=== PATIENT | male | born 1985 | race Caucasian/White ===

== ENCOUNTER 2021-05-04 00:11 | Inpatient (IN) | payer OTHER, SELFPAY ==
[2021-05-04] VITALS (11 sets, daily range): BP systolic 107–168; BP diastolic 73–105; PULSE 91–131; RESP 16–22; TEMP 36.6–37.1; O2SAT 90–97; BMI 25.7; BMI 24.3
--- NOTE | ~2021-05-04 | CT_ITS ---
EXAMINATION: CT ABDOMEN AND PELVIS WITH CONTRAST CLINICAL INFORMATION: Epigastric pain. History of pancreatitis. COMPARISON: None TECHNIQUE: Multidetector volumetric images were obtained from the superior aspect of the liver through the pubic symphysis following administration 85 mL of Omnipaque 350 intravenous contrast. Sagittal and coronal reformatted images were obtained on the technologist's workstation. Oral contrast: No This CT examination was performed using dose optimization techniques as appropriate, variously including the following: *Automated exposure control *Adjustment of mA and/or kV according to patient size (this includes techniques or standardized protocols for targeted exams where dose is matched to indication/reason for exam; i.e. extremities or head) *Use of iterative reconstruction technique DLP: 629 mGy-cm FINDINGS: LUNG BASES: The visualized lung bases are unremarkable. LIVER, GALLBLADDER, AND BILIARY TREE: The liver is enlarged measuring 23 cm in CC dimension. It is diffusely hypoattenuating. Normal shape of the liver. Patent portal vein.. No focal hepatic lesion or biliary ductal dilatation is present. Likely sludge layering in the gallbladder lumen. No wall thickening or pericholecystic fluid. PANCREAS: The pancreatic parenchyma is homogenous with no ductal dilatation. There is inflammatory stranding surrounding the pancreatic parenchyma, greatest at the pancreatic head and neck. SPLEEN: Unremarkable. ADRENAL GLANDS: Unremarkable. KIDNEYS AND URETERS: The kidneys are normal in size, shape, and attenuation. No hydronephrosis, hydroureter, or calculi seen. No perinephric stranding. BLADDER: Unremarkable. GASTROINTESTINAL TRACT: The stomach is unremarkable. Normal caliber small bowel. No obstruction. No colonic wall thickening or inflammatory change. Normal appendix. Minimal colonic diverticulosis. No diverticulitis. No free air. ABDOMINAL WALL: No significant hernia is appreciated. LYMPH NODES: Normal. VASCULAR: Normal caliber aorta with mild atherosclerotic calcification. PELVIC VISCERA: The prostate and seminal vesicles are unremarkable. OSSEOUS STRUCTURES: No acute or suspicious osseous abnormality. CT/CT abdomen pelvis w con IMPRESSION: Prominent inflammatory stranding surrounding the pancreatic parenchyma, likely associated with pancreatitis. No fluid collection. Hepatomegaly with hepatic steatosis. Likely gallbladder sludge.
[2021-05-04 01:03] LABS: MANUAL DIFF FLAG NO
--- NOTE | 2021-05-04 01:08 | ED.ABDPAIN ---
HPI - Abdominal Pain General Chief Complaint: Abdominal Pain Stated Complaint: abd pain Time Seen by Provider: 05/04/21 00:56 Source: patient Mode of arrival: ambulatory Limitations: no limitations History of Present Illness HPI narrative: Complaining of epigastric pain. Patient states that 2-3 months ago he had an episode of pancreatitis. Patient stop drinking but recently a a month ago he started drinking again. Patient complaining of very sharp pain in the epigastric area, intermittent. Patient admits to vomiting, no diarrhea. Patient denies fever or chills. Patient states that the pain he is having now, is very similar to the time that he was diagnosed with pancreatitis. Related Data Allergies Allergy/AdvReac Type Severity Reaction Status Date / Time codeine [CODEINE] Allergy Mild REDNESS Verified 05/04/21 00:32 tramadol [TRAMADOL] AdvReac Unknown ON EFFEXOR Verified 05/04/21 00:32 From [facility] Allergy Intermediate SWELLING Uncoded 06/06/20 18:01 Review of Systems Review of Systems Constitutional : No Weight loss, No Fever, No Chills, No Night Sweats, No Fatigue, No Malaise ENT/Mouth : No Hearing loss, No Ear Pain, No Nasal Congestion, No Sinus Pain, No Hoarseness, No sore throat, No Rhinorrhea, No Swallowing Difficulty Eyes: No Eye Pain, No Swelling, No Redness, No Foreign Body, No Discharge, No Vision Changes Cardiovascular : No Chest Pain, No SOB, No Dyspnea on Exertion, No Orthopnea, No Edema, No Palpitations Respiratory : No Cough, No Sputum, No Wheezing, No Smoke Exposure, No Dyspnea Gastrointestinal : Complaining of nausea and vomiting,No Diarrhea, No Constipation, complaining of epigastric pain, No Hematochezia, No Melena Genitourinary : no irregular bleeding, No Dysuria, No Urinary Frequency, No Hematuria, No Urinary Incontinence, No Urgency, No Flank Pain, No Urinary Flow Changes, No Hesitancy Musculoskeletal : No joint pain, No Myalgias, No Joint Swelling Skin : No Skin Lesions, No rash Neuro : No Weakness, No Numbness, No Paresthesias, No Loss of Consciousness, No Dizziness, No Headache Psych : No Anxiety/Panic, No Depression, No SI/HI/AH/VH, No Social Issues, Heme/Lymph: No Bruising, No Bleeding,No Lymphadenopathy Endocrine : No Polyuria, No Polydipsia, No Temperature Intolerance Physical Exam Vital Signs: Vital Signs: Last Vital Signs Temp 98.6 F 05/04/21 00:33 Pulse 106 H 05/04/21 01:26 Resp 18 05/04/21 01:26 BP 150/100 H 05/04/21 01:26 Pulse Ox 94 05/04/21 01:26 Body Mass Index 25.7 Const: Other: Appearance: Alert. Oriented X3. No acute distress. Eyes: Pupils equal, round and reactive to light. ENT: Pharynx normal. Neck: Normal inspection. Neck supple. No lymph nodes noted. No crepitus CVS: Tachycardic, Pulses normal. Normal S1 and S2 Respiratory: No respiratory distress. Breath sounds normal. No Wheezing. No rales Abdomen: Soft , moderate pain to palpation over the epigastric and right upper quadrant No rigidity. No distention. No guarding, no rebound Skin: Skin warm and dry. Normal skin color. Normal skin turgor. Extremities: No lower extremity edema. No lower extremity edema. No Lacerations. No Rash Neuro: Oriented X 3. No motor deficit. No sensory deficit. Moving all extermities. No slurred speech. Course Course Course Narrative: I discussed the CT findings with our hospitalist, patient being admitted. At this time, patient's LFTs are elevated, patient does have sludge, but no gallbladder wall thickening or pericholecystic fluid. Acute cholecystitis is not suspected. Patient agrees to admission. MDM - Abdominal Pain Lab Data Result diagrams: 05/04/21 00:55 05/04/21 00:55 Labs: Lab Results 05/04/21 05/04/21 05/04/21 Range/Units 00:55 00:55 00:55 WBC 6.0 (4.8-10.8) X10*3/uL RBC 4.34 L (4.60-5.80) X10*6/uL Hgb 14.3 (14.0-18.0) g/dl Hct 40.1 L (42-52) % MCV 92.4 (80-98) fL MCH 32.9 (27.0-33.0) pg MCHC 35.7 (31.0-36.0) g/dl RDW 13.1 (11.0-16.0) % Plt Count 143 L (160-400) X10*3/uL MPV 9.5 (9.4-12.4) fL Immature Gran % (Auto) 0.3 (0.0-0.4) % Neut % (Auto) 71.8 (45-73) % Lymph % (Auto) 19.2 L (20-40) % [place] % (Auto) 7.8 (2-11) % Eos % (Auto) 0.2 (0-4) % Baso % (Auto) 0.7 (0-2) % Lymph # (Auto) 1.2 (1.2-4.9) X10*3/uL [place] # (Auto) 0.5 (0.1-1.2) X10*3/uL Eos # (Auto) 0.0 (0.0-0.4) X10*3/uL Baso # (Auto) 0.0 (0.0-0.2) X10*3/uL Abs Immat Gran (auto) 0.02 (0.00-0.03) X10*3/uL Absolute Neuts (auto) 4.3 (2.0-8.3) X10*3/uL Absolute Nucleated RBC 0.000 (0.0-0.012) X10*3/uL Nucleated RBC % (auto) 0.0 (0.0-0.2) /100WBC Sodium 132 L (135-145) mmol/L Potassium 3.0 L (3.3-5.1) mmol/L Chloride 88 L (96-108) mmol/L Carbon Dioxide 29 (22-29) mmol/L Anion Gap 18 (12-20) BUN 2 L (9-16) mg/dL Creatinine 0.74 (0.5-1.4) mg/dL Estim Creat Clear Calc 161.9 Estimated GFR > 60 Random Glucose 195 H (60-115) mg/dL Calcium 9.8 (8.4-10.2) mg/dL Total Bilirubin 1.3 H (0.0-1.0) mg/dL AST 140 H (5-37) U/L ALT 105 H (0-40) U/L Alkaline Phosphatase 154 H (39-117) U/L Total Protein 7.5 (6.5-8.0) g/dL Albumin 4.2 (3.5-5.0) g/dL Lipase 705 H (8-78) U/L Ethyl Alcohol 77 mg/dL Imaging Data CT scan - abdomen: Radiologist's impression: FINDINGS: LUNG BASES: The visualized lung bases are unremarkable.? LIVER, GALLBLADDER, AND BILIARY TREE: The liver is enlarged measuring 23 cm in CC dimension. It is diffusely hypoattenuating. Normal shape of the liver. Patent portal vein.. No focal hepatic lesion or biliary ductal dilatation is present. Likely sludge layering in the gallbladder lumen. No wall thickening or pericholecystic fluid.? PANCREAS: The pancreatic parenchyma is homogenous with no ductal dilatation. There is inflammatory stranding surrounding the pancreatic parenchyma, greatest at the pancreatic head and neck.? SPLEEN: Unremarkable.? ADRENAL GLANDS: Unremarkable.? KIDNEYS AND URETERS: The kidneys are normal in size, shape, and attenuation. No hydronephrosis, hydroureter, or calculi seen. No perinephric stranding. ? BLADDER: Unremarkable.? GASTROINTESTINAL TRACT: The stomach is unremarkable. Normal caliber small bowel. No obstruction. No colonic wall thickening or inflammatory change. Normal appendix. Minimal colonic diverticulosis. No diverticulitis. No free air.? ABDOMINAL WALL: No significant hernia is appreciated.? LYMPH NODES: Normal. VASCULAR: Normal caliber aorta with mild atherosclerotic calcification. PELVIC VISCERA: The prostate and seminal vesicles are unremarkable.? OSSEOUS STRUCTURES: No acute or suspicious osseous abnormality.? CT/CT abdomen pelvis w con IMPRESSION: Prominent inflammatory stranding surrounding the pancreatic parenchyma, likely associated with pancreatitis. No fluid collection. ? Hepatomegaly with hepatic steatosis. ? Likely gallbladder sludge. 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
[2021-05-04 01:09] LABS: Basophils Percent Auto 0.7 % (0-2); Eosinophils Percent Auto 0.2 % (0-4); Hematocrit 40.1 % (42-52); Hemoglobin 14.3 g/dl (14.0-18.0); Imm Gran Abs Auto 0.02 X10*3/uL (0.00-0.03); Imm Gran Pct Auto 0.3 % (0.0-0.4); Lymphocytes Absolute Auto 1.2 X10*3/uL (1.2-4.9); Lymphocytes Percent Auto 19.2 % (20-40); Mean Corpuscular HGB Conc 35.7 g/dl (31.0-36.0); Mean Corpuscular Hemoglobin 32.9 pg (27.0-33.0); Mean Corpuscular Volume 92.4 fL (80-98); Mean Platelet Volume 9.5 fL (9.4-12.4); Monocytes Absolute Auto 0.5 X10*3/uL (0.1-1.2); Monocytes Percent Auto 7.8 % (2-11); Neutrophils Absolute Auto 4.3 X10*3/uL (2.0-8.3); Neutrophils Percent Auto 71.8 % (45-73); Platelet Count 143 X10*3/uL (160-400); Red Blood Count 4.34 X10*6/uL (4.60-5.80); Red Cell Distribution Width 13.1 % (11.0-16.0)
[2021-05-04] MEDS: 0.9 % Sodium Chloride 1,000 ML 999 ML IVCONT ×3 (01:18→02:57)
[2021-05-04] MEDS: ondansetron HCL 4 MG/2 ML VIAL IVPUSH (01:18)
[2021-05-04] MEDS: Morphine Sulfate 4 MG/ML CARTRIDGE IVPUSH ×4 (01:19→22:26)
[2021-05-04 01:26] LABS: Ethanol 77 mg/dL
[2021-05-04 01:34] LABS: Alanine Aminotransferase 105 U/L (0-40); Albumin Level 4.2 g/dL (3.5-5.0); Alkaline Phosphatase 154 U/L (39-117); Anion Gap 18 (12-20); Aspartate Amino Transferase 140 U/L (5-37); Bilirubin Total 1.3 mg/dL (0.0-1.0); Blood Urea Nitrogen 2 mg/dL (9-16); Calcium 9.8 mg/dL (8.4-10.2); Carbon Dioxide 29 mmol/L (22-29); Chloride 88 mmol/L (96-108); Creatinine Clr Calc Pharmacy 161.9; Estimated Glomerular Filt Rate > 60; Glucose Random 195 mg/dL (60-115); Lipase 705 U/L (8-78); Sodium 132 mmol/L (135-145); Total Protein 7.5 g/dL (6.5-8.0)
[2021-05-04] MEDS: iohexoL 350 MG/ML 100 ML INFUS..BTL 85 ML IV (01:51)
[2021-05-04 02:34] LABS: Triglycerides 167 mg/dL
[2021-05-04] MEDS: LORazepam 2 MG/ML VIAL IVPUSH (02:44)
[2021-05-04] MEDS: Prochlorperazine Edisylate 10 MG/2 ML VIAL IVPUSH (02:57)
--- NOTE | 2021-05-04 03:28 | PC.NURSE ---
This RN assuming care of pt at this time, rec'd report from Paola Deleon RN. Pt awoken from sleep, aaox4, denies pain/discomfort. Pt states I'm withdrawing from alcohol really bad right now. Pt's CIWA assessed, scored 1 for moist palms. Pt immediately returned to sleep. Pt offers no additional complaints. Pt's VSS, slightly tachy between 95-110bpm. Pt stretcher is in low locked position, rails raised x 2, call hansen within reach. While awake, this RN attempts to perform med rec and pt states there are no meds that I take everyday. I don't have any prescriptions but I need something for my withdrawals. Med rec to be documented as pt reports. Pt awaiting bed assignment.
[2021-05-04] MEDS: 0.9 % Sodium Chloride 1,000 ML 200 ML IVCONT ×4 (03:31→20:02)
[2021-05-04] MEDS: Enoxaparin Sodium 40 MG/0.4 ML SYRINGE SUBCUT (03:31)
[2021-05-04 03:57] LABS: COVID-19 Test Negative (Negative)
[2021-05-04 05:32] LABS: MANUAL DIFF FLAG NO
--- NOTE | 2021-05-04 05:34 | PM.IMHP ---
History of Present Illness Date of Service: 05/04/21 Chief Complaint: Abdominal pain This is a 35-year-old male with past medical history of alcohol abuse, as well as pancreatitis who presents to the hospital with epigastric abdominal pain radiating to the back. Symptoms started 2 days ago, associated with nausea and vomiting, no diarrhea, the pain is 10/10, constant, relieved with pain medication, worse with food intake. Patient reports that he drinks about 1 pt of alcohol daily, last drink was few hours ago, he feels like he is withdrawing. He denies any chest pain, no shortness of breath, no headache or change in vision, no urinary symptoms and no lower extremity edema On arrival to the ED patient hemodynamically stable with vital signs significant for temp of 98.6?, heart rate of 131, respiratory rate of 18, blood pressure 168/105, satting 95% on room air Labs are significant for diabetes C count of 6.0 sodium of 132, potassium of 3.0 bili of 1.3, AST of 140, ALT of 105, alk-phos of 154, lipase of 705, triglyceride less than 200, CT abdomen shows prominent inflammatory stranding surrounding the pancreatic parenchyma, likely associated with pancreatitis. No fluid collection Patient will be admitted for further management Review of Systems Review of Systems: Yes all other systems are reviewed and are negative [facility] Medical History (Updated 05/04/21 @ 05:38 by Dayne Maria MD) Alcohol abuse with withdrawal Pancreatitis Social History Household Members: Significant Other Housing: Apartment Do you presently have visiting nurse or other home services: No Alcohol intake: current Alcohol intake frequency: 3 or more drinks per day Alcohol type: beer, wine and hard liquor Patient Tobacco Use Status: Current everyday Tobacco user Cigarettes Per Day: 20 Years Smoked: 29 Smoked in Last 30 Days: Yes Use of substances other than those prescribed or required for medical reasons: No 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 If so, by whom?: No Do you feel safe in your current relationship?: No Is there a partner from a previous relationship who is making you feel unsafe now?: No Spiritual Healthcare Practices: no Advance Directives: No Advance Directives Information Provided: No Do you have thoughts of harming others: None Do you have a plan to hurt others: No Plan Recently lost weight without trying: Unsure Meds Allergies Allergy/AdvReac Type Severity Reaction Status Date / Time codeine [CODEINE] Allergy Mild REDNESS Verified 05/04/21 00:32 tramadol [TRAMADOL] AdvReac Unknown ON EFFEXOR Verified 05/04/21 00:32 From [facility] Allergy Intermediate SWELLING Uncoded 06/06/20 18:01 Active Medications: Current Medications Generic Name Dose Route Start Last Admin Trade Name Freq PRN Reason Stop Dose Admin Acetaminophen 650 mg 05/04/21 02:54 Acetaminophen 325 Mg Tablet PO Q6H PRN Pain, Mild (Pain Scale 1-3) Acetaminophen 650 mg 05/04/21 02:54 Acetaminophen Supp 650 Mg Supp.Rect SD Q6H PRN Pain, Mild (Pain Scale 1-3) Enoxaparin Sodium 40 mg 05/04/21 22:00 Enoxaparin Sodium 40 Mg/0.4 Ml Syringe SUBCUT Q24H [facility] Folic Acid 1 mg 05/04/21 09:00 Folic Acid 1 Mg Tablet PO DAILY [facility] Sodium Chloride 1,000 mls @ 200 mls/hr 05/04/21 03:00 05/04/21 03:31 Ns IVCONT 200 mls/hr .Q5H [facility] Administration Medication 1 each 05/04/21 09:00 No Benzodiazepines MISCELLANE DAILY [facility] Morphine Sulfate 4 mg 05/04/21 02:54 Morphine Sulfate 4 Mg/Ml Cartridge IVPUSH Q4H PRN Pain, Severe (Pain Scale 7-10) Protocol Ondansetron HCl 4 mg 05/04/21 02:54 Ondansetron Hcl 4 Mg/2 Ml Vial IVPUSH Q8H PRN Nausea and Vomiting Phenobarbital Sodium 247 mg 05/04/21 08:30 Phenobarbital Sodium 130 Mg/Ml Vial IM 05/04/21 11:31 Q3H [facility] Sodium Chloride 3 ml 05/04/21 08:00 0.9 % Sodium Chloride Flush 3 Ml Syringe IVFLUSH QSHIFT [facility] Thiamine HCl 100 mg 05/04/21 09:00 Thiamine Hcl 100 Mg Tablet PO DAILY [facility] Home Medications Medication Instructions Recorded Confirmed Last Taken Type No Known Home Meds 05/04/21 05/04/21 Unknown History Physical Exam Vital Signs and Narrative: Vital Signs: Last Vital Signs Temp 98.3 F 05/04/21 04:00 Pulse 111 H 05/04/21 04:00 Resp 20 05/04/21 04:00 BP 141/88 H 05/04/21 04:00 Pulse Ox 91 L 05/04/21 04:00 Body Mass Index 24.3 Const: General: cooperative and no acute distress Orientation/consciousness: patient oriented x3 Eyes: General: appearance normal, both eyes and all related structures Resp: Effort & Inspection: normal respiratory effort and able to speak in complete sentences Cardio: Rate: regular rate Rhythm: regular rhythm GI: Other: Tender in the epigastric region, guarding present Palpation (GI): Soft to palpation Auscultation: normal bowel sounds Skin: General skin exam: no rashes or lesions noted Neuro: General: patient oriented x3 Cognition (Neuro): normal cognition Extrem: General: Yes normal to inspection and Yes no pedal edema Results Labs CBC and Chem 7: 05/04/21 00:55 05/04/21 00:55 Labs: Laboratory Results - last 24 hr 05/04/21 05/04/21 05/04/21 00:55 00:55 00:55 MCV 92.4 MCH 32.9 MCHC 35.7 RDW 13.1 Plt Count 143 L MPV 9.5 Immature Gran % (Auto) 0.3 Neut % (Auto) 71.8 Lymph % (Auto) 19.2 L [place] % (Auto) 7.8 Eos % (Auto) 0.2 Baso % (Auto) 0.7 Lymph # (Auto) 1.2 [place] # (Auto) 0.5 Eos # (Auto) 0.0 Baso # (Auto) 0.0 Abs Immat Gran (auto) 0.02 Absolute Neuts (auto) 4.3 Absolute Nucleated RBC 0.000 Nucleated RBC % (auto) 0.0 Anion Gap 18 Estim Creat Clear Calc 161.9 Estimated GFR > 60 Random Glucose 195 H Calcium 9.8 Total Bilirubin 1.3 H AST 140 H ALT 105 H Alkaline Phosphatase 154 H Total Protein 7.5 Albumin 4.2 Triglycerides 167 Lipase 705 H Ethyl Alcohol 77 COVID-19 (JEAN) COVID-19 Clin Com 05/04/21 03:26 MCV MCH MCHC RDW Plt Count MPV Immature Gran % (Auto) Neut % (Auto) Lymph % (Auto) [place] % (Auto) Eos % (Auto) Baso % (Auto) Lymph # (Auto) [place] # (Auto) Eos # (Auto) Baso # (Auto) Abs Immat Gran (auto) Absolute Neuts (auto) Absolute Nucleated RBC Nucleated RBC % (auto) Anion Gap Estim Creat Clear Calc Estimated GFR Random Glucose Calcium Total Bilirubin AST ALT Alkaline Phosphatase Total Protein Albumin Triglycerides Lipase Ethyl Alcohol COVID-19 (JEAN) Negative COVID-19 Clin Com See Note Imaging Radiologist's Impressions: Impressions Abdomen/Pelvis CT 05/04/21 01:07 IMPRESSION: Prominent inflammatory stranding surrounding the pancreatic parenchyma, likely associated with pancreatitis. No fluid collection. Hepatomegaly with hepatic steatosis. Likely gallbladder sludge. Assessment and Plan (1) Pancreatitis: Status: Acute (2) Alcohol abuse with withdrawal: Status: Acute 35-year-old male with past medical history of alcohol abuse presents to the hospital with abdominal pain found to have acute pancreatitis # acute pancreatitis - secondary to alcohol abuse - no evidence of cholelithiasis - triglycerides normal - heavy drinker drinks about 1 pt daily - will start him on IV fluids - pain control - supportive measures with antiemetics # alcohol abuse with withdrawal - will start him on phenobarb protocol - thiamine and folic acid supplement DVT prophylaxis: lovenox Quality Stroke Does the patient have a stroke diagnosis?: No VTE Prior VTE?: No VTE Risk Level:: Medical - moderate - high VTE Device Contraindication: Treatment Not Indicated VTE Drug Contraindication: N/A - Med Ordered
[2021-05-04] MEDS: PHENobarbitaL sodium 130 MG/ML VIAL 329 MG IM (06:05)
[2021-05-04 06:10] LABS: Anion Gap 13 (12-20); Blood Urea Nitrogen < 2 mg/dL (9-16); Calcium 8.2 mg/dL (8.4-10.2); Carbon Dioxide 28 mmol/L (22-29); Chloride 97 mmol/L (96-108); Creatinine Clr Calc Pharmacy 190.2; Estimated Glomerular Filt Rate > 60; Glucose Random 131 mg/dL (60-115); Potassium 3.2 mmol/L (3.3-5.1); Sodium 135 mmol/L (135-145)
[2021-05-04 06:15] LABS: Basophils Percent Auto 0.4 % (0-2); Eosinophils Percent Auto 0.2 % (0-4); Hematocrit 33.9 % (42-52); Imm Gran Abs Auto 0.02 X10*3/uL (0.00-0.03); Imm Gran Pct Auto 0.4 % (0.0-0.4); Lymphocytes Percent Auto 21.5 % (20-40); Mean Corpuscular HGB Conc 35.4 g/dl (31.0-36.0); Mean Corpuscular Volume 93.1 fL (80-98); Monocytes Absolute Auto 0.3 X10*3/uL (0.1-1.2); Monocytes Percent Auto 6.6 % (2-11); Neutrophils Absolute Auto 3.3 X10*3/uL (2.0-8.3); Neutrophils Percent Auto 70.9 % (45-73); Platelet Count 112 X10*3/uL (160-400); Red Blood Count 3.64 X10*6/uL (4.60-5.80); Red Cell Distribution Width 13.1 % (11.0-16.0); White Blood Count 4.7 X10*3/uL (4.8-10.8)
[2021-05-04 08:24] LABS: Magnesium 1.4 mg/dL (1.6-2.6)
--- NOTE | 2021-05-04 10:14 | MHC.CM.PN ---
CM attempted to meet with Patient who appeared to be sleeping soundly. CM spoke over the phone with /Eri @ [phone]. Patient lives in an apartment with his and he is functionally independent. Home is the goal for dc and CM has initiated and will follow for dc planning. Patient has no PCP. Patient has ETOH and may benefit from a Care Team Consult.
--- NOTE | 2021-05-04 11:58 | P.EN_ITS ---
Event Note Date of Service: 05/04/21 Event Note: This is a 35-year-old male with past medical history of alcohol ab use presents to the hospital with abdominal pain found to have acute pancreatitis Patient sleeping upon entering room, easily arousable to verbal stimuli. Reports abdominal pain has improved. acute pancreatitis secondary to alcohol abuse. no evidence of cholelithiasis - triglycerides normal - heavy drinker drinks about 1 pt daily - continue IV fluids - pain control - supportive measures with antiemetics - tend lipase alcohol abuse with withdrawal - continuephenobarb protocol - thiamine and folic acid supplement - replace electrolytes as needed Transaminitis Secondary to alcohol abuse -Trend LFTs DVT prophylaxis: lovenox Attending-Dr. Brennan
[2021-05-04] MEDS: Magnesium Sulfate/H2O 2 GM/50 ML PIGGYBACK IV (12:23)
[2021-05-04] MEDS: Potassium Chloride ER 20 MEQ TAB.ER.PRT PO (13:31)
[2021-05-04] MEDS: PHENobarbitaL 30 MG TABLET 60 MG PO (20:01)
[2021-05-05] MEDS: ondansetron HCL 4 MG/2 ML VIAL IVPUSH (00:42)
[2021-05-05] MEDS: 0.9 % Sodium Chloride 1,000 ML 200 ML IVCONT (00:46)
--- NOTE | 2021-05-05 01:20 | PC.NURSE ---
Patient woke up anxious,agitated, requesting nicotine patch right away or smoke a cigarettes. Patient id demanding pain medication right away, if not he said he is leaving AMA. DR Lee was paged ,customer complaint service supervisor Hilario Herrera as notified . Patient GOT UP FROM THE BED PUT HIS OWN CLOTHS ON AND CALLED HIS TO PICK HIM UP. DR Lee and the nursing suppervisor came to see the patient , he refused any help from the MD at this time . Stated that he is lesving home AMA. Patient is alert and oriented and understand the risks of going AMA .
--- NOTE | 2021-05-15 08:25 | PM.EVENT ---
Event Note Date of Service: 05/15/21 Event Note: Discharge note Discharge diagnosis acute pancreatitis alcohol abuse with withdrawal Transaminitis Admitted and treated for acute pancreatitis and alcohol withdrawal. in the middle of the night he decided to leave AMA. discussed with the night physician dr Ferrer and the patient understood the concerns of leaving the hospital. was alert and oriented per nursing notes. signed AMA paper and left.
== END 2021-05-05 01:10 | disposition left against medical advice (07) | DRG 282 ==
LOC: HO.ED 02:26 → HO.EDOVER 03:01 → HO.IMC 03:16
PROVIDERS: Physician Assistant Medical; Admitting Provider Internal Medicine; Emergency Provider Emergency Medicine; Visit Provider Student in an Organized Health Care Education/Training Program
DX: K85.20 Alcohol induced acute pancreatitis without necrosis or infection (principal); F10.139 Alcohol abuse with withdrawal, unspecified; F17.210 Nicotine dependence, cigarettes, uncomplicated; Z71.6 Tobacco abuse counseling; Z88.5 Allergy status to narcotic agent; Z20.822 Contact with and (suspected) exposure to COVID-19
CPT/HCPCS: 36415; 74177; 80048; 80053; 82077; 83690; 83735; 84478; 85025; 87635; 96361; 96374; 96375; 99285; J1650; J2060; J2270; J2405; J2560; J3475; Q9967

== ENCOUNTER 2021-06-23 19:06 | Inpatient (IN) | payer OTHER, SELFPAY ==
--- NOTE | ~2021-06-23 | XR_ITS ---
EXAMINATION: XR CHEST CLINICAL INFORMATION: Covid COMPARISON: None TECHNIQUE: Frontal view of the chest was obtained. FINDINGS: Cardiac leads overlie the chest. The lungs are well expanded. Mild hazy opacity at the right base. There is no edema or effusion. No pneumothorax. The cardiomediastinal silhouette is within normal limits. No acute osseous abnormality. XR/XR chest 1V IMPRESSION: Mild hazy right basilar opacity could be infectious or inflammatory.
--- NOTE | ~2021-06-23 | NM_ITS ---
EXAMINATION: PULMONARY PERFUSION STUDY CLINICAL INFORMATION: Tachycardia, hypoxia. COMPARISON: No previous lung scan is available for comparison. A radiograph the chest dated 06/23/[address] scan of the chest dated 06/24/2021, the same date as this lung scan are available for comparison. TECHNIQUE: Following the intravenous injection of 3.0 mCi Tc-99m MAA, an 8-view perfusion study was performed using a gamma scintillation camera. FINDINGS: No segmental perfusion defects are present. There is homogeneous distribution of activity bilaterally. There are no focal anatomic appearing perfusion defects present. NM/NM pul perfusion IMPRESSION: Normal radionuclide lung perfusion scan.
--- NOTE | ~2021-06-23 | CT_ITS ---
EXAMINATION: CT ABDOMEN AND PELVIS WITHOUT CONTRAST CLINICAL INFORMATION: Epigastric pain COMPARISON: CT scan abdomen pelvis June 24, 2021 TECHNIQUE: Multidetector volumetric imaging was performed from the superior aspect of the liver through the pubic symphysis. Sagittal and coronal reformatted images were obtained on the technologist's workstation. This CT examination was performed using dose optimization techniques as appropriate, variously including the following: *Automated exposure control *Adjustment of mA and/or kV according to patient size (this includes techniques or standardized protocols for targeted exams where dose is matched to indication/reason for exam; i.e. extremities or head) *Use of iterative reconstruction technique DLP: 617 mGy-cm FINDINGS: LUNG BASES: Dependent atelectasis at lung bases. LIVER, GALLBLADDER, AND BILIARY TREE: Liver is enlarged. Right lobe of liver measures 31 cm superior inferior. Marked low attenuation of liver parenchyma due to fatty change. No focal liver lesion or intrahepatic bile duct dilatation. No calcified gallstone. Sludge seen in the dependent gallbladder. No bile duct dilatation. PANCREAS: Unremarkable. SPLEEN: Spleens enlarged measuring 16 cm of length. No focal splenic lesion. ADRENAL GLANDS: Unremarkable. KIDNEYS AND URETERS: The kidneys are normal in size, shape, and attenuation. No hydronephrosis, hydroureter, or calculi seen. No perinephric stranding. BLADDER: Aragon catheter within the bladder. Bladder is empty. GASTROINTESTINAL TRACT: There is submucosal thickening of the mid descending colon through the sigmoid and rectum consistent with a colitis. No air in the bowel wall. No bowel obstruction. Moderate volume of stool in the right colon. The appendix is not visualized. MESENTERY: Moderate volume of free fluid in the abdomen. No free air. No abscess. ABDOMINAL WALL: No significant hernia is appreciated. LYMPH NODES: Normal. VASCULAR: Unremarkable. PELVIC VISCERA: Unremarkable. OSSEOUS STRUCTURES: Degenerative disc height narrowing L5-S1. CT/CT abdomen pelvis wo con IMPRESSION: 1. There is dependent atelectasis at lung bases. 2. Hepatosplenomegaly. Diffuse marked low attenuation of liver parenchyma due to fatty change. 3. Moderate volume of abdominal ascites. 4. Submucosal thickening of the mid descending colon through the distal sigmoid and rectum consistent with a colitis. 5. Aragon catheter in bladder.
--- NOTE | ~2021-06-23 | CT_ITS ---
EXAMINATION: CT ABDOMEN AND PELVIS WITH CONTRAST CLINICAL INFORMATION: Alcoholic cirrhosis. Acute hepatitis. Question portal vein thrombosis. COMPARISON: 05/04/2021 TECHNIQUE: Multidetector volumetric images were obtained from the superior aspect of the liver through the pubic symphysis following administration 85 mL of Omnipaque 350 intravenous contrast. Sagittal and coronal reformatted images were obtained on the technologist's workstation. Oral contrast: No This CT examination was performed using dose optimization techniques as appropriate, variously including the following: *Automated exposure control *Adjustment of mA and/or kV according to patient size (this includes techniques or standardized protocols for targeted exams where dose is matched to indication/reason for exam; i.e. extremities or head) *Use of iterative reconstruction technique DLP: 612 mGy-cm FINDINGS: LUNG BASES: Bibasilar atelectasis. The visualized cardiac structures are unremarkable. LIVER, GALLBLADDER, AND BILIARY TREE: The liver is enlarged measuring 25 cm in CC dimension. Diffuse heterogeneous low-attenuation of the liver, consistent with steatosis. No focal hepatic lesion. No biliary ductal dilatation. The portal vein is patent. The gallbladder is distended likely with internal sludge. No radiopaque stones. No wall thickening.. PANCREAS: Unremarkable. SPLEEN: Unremarkable. ADRENAL GLANDS: Unremarkable. KIDNEYS AND URETERS: The kidneys are normal in size, shape, and attenuation. No hydronephrosis, hydroureter, or calculi seen. No perinephric stranding. BLADDER: Aragon catheter in place. No gross abnormality. GASTROINTESTINAL TRACT: The stomach is unremarkable. The small bowel is normal in caliber. There is no obstruction. There is diffuse colonic wall thickening involving the entirety of the colon. Small to moderate volume ascites. These findings are new from prior. ABDOMINAL WALL: No significant hernia is appreciated. LYMPH NODES: Prominent portacaval lymph nodes are noted, similar to previous. VASCULAR: Unremarkable. PELVIC VISCERA: The prostate and seminal vesicles are unremarkable. OSSEOUS STRUCTURES: No acute or suspicious osseous abnormality. CT/CT abdomen pelvis w con IMPRESSION: Significant hepatomegaly with hepatic steatosis. There is new small to moderate volume of ascites. Patent portal vein. There is new diffuse colonic wall thickening suggestive of colitis. Prominent periportal lymph nodes likely reactive.
--- NOTE | ~2021-06-23 | CT_ITS ---
EXAMINATION: CT CHEST WITHOUT CONTRAST CLINICAL INFORMATION: Hypoxia COMPARISON: Previous chest x-ray from yesterday and abdominal and pelvic CT scan from earlier the same day. TECHNIQUE: Multidetector volumetric CT imaging of the chest was done. Axial MIP volume rendering provided. Sagittal and coronal reformatted images were obtained. Exam is limited due to artifact from respiratory motion This CT examination was performed using dose optimization techniques as appropriate, variously including the following: *Automated exposure control *Adjustment of mA and/or kV according to patient size (this includes techniques or standardized protocols for targeted exams where dose is matched to indication/reason for exam; i.e. extremities or head) *Use of iterative reconstruction technique DLP: 182 mGy-cm FINDINGS: LUNGS: There is atelectasis or small infiltrate at the right lung base in the right lower lobe. This is increased from abdominal pelvic CT scan from earlier the same day. There is subsegmental atelectasis at the left lung base in the left lower lobe that is unchanged. The lungs are otherwise clear. MEDIASTINUM: There are small mediastinal lymph nodes. No enlarged lymph nodes are seen. The heart is upper normal in size. There is no pericardial effusion. PLEURA: There is no pleural effusion. No pleural mass or thickening. AXILLA: No lymphadenopathy. UPPER ABDOMEN: The liver is low in attenuation suggestive of fatty infiltration. There is a small amount of ascites OSSEOUS STRUCTURES: Unremarkable. CT/CT chest wo con IMPRESSION: Limited exam due to respiratory motion artifact. Increasing atelectasis or small infiltrate at the right lung base and subsegmental atelectasis at the left lung base similar to recent exam. Enlarged fatty liver and small amount of ascites.
[2021-06-23 20:19] VITALS: BP 150/98; PULSE 136; RESP 20; TEMP 36.8; O2SAT 94
[2021-06-23 20:30] LABS: Basophils Percent Auto 0.2 % (0-2); Hemoglobin 13.7 g/dl (14.0-18.0); Imm Gran Pct Auto 0.6 % (0.0-0.4); MANUAL DIFF FLAG SCAN; Monocytes Percent Auto 6.4 % (2-11); Neutrophils Percent Auto 88.9 % (45-73); PLT CLUMP 1; Red Cell Distribution Width 15.9 % (11.0-16.0); SCAN SMEAR FLAG 1
[2021-06-23 20:32] LABS: Eosinophils Percent Auto 0.1 % (0-4); Hematocrit 35.5 % (42-52); Imm Gran Abs Auto 0.09 X10*3/uL (0.00-0.03); Lymphocytes Absolute Auto 0.6 X10*3/uL (1.2-4.9); Lymphocytes Percent Auto 3.8 % (20-40); Mean Corpuscular Hemoglobin 36.1 pg (27.0-33.0); Mean Corpuscular Volume 93.4 fL (80-98); Mean Platelet Volume 10.8 fL (9.4-12.4); Monocytes Absolute Auto 1.1 X10*3/uL (0.1-1.2); Neutrophils Absolute Auto 14.5 X10*3/uL (2.0-8.3); Platelet Count 110 X10*3/uL (160-400); White Blood Count 16.3 X10*3/uL (4.8-10.8)
[2021-06-23 20:54] LABS: Alanine Aminotransferase 89 U/L (0-40); Albumin Level 2.6 g/dL (3.5-5.0); Alkaline Phosphatase 317 U/L (39-117); Anion Gap 22 (12-20); Aspartate Amino Transferase 238 U/L (5-37); Bilirubin Total 7.6 mg/dL (0.0-1.0); Blood Urea Nitrogen 4 mg/dL (9-16); Carbon Dioxide 29 mmol/L (22-29); Chloride 65 mmol/L (96-108); Creatinine Clr Calc Pharmacy 195.1; Estimated Glomerular Filt Rate > 60; Glucose Random 193 mg/dL (60-115); Lipase 7 U/L (8-78); Potassium 2.3 mmol/L (3.3-5.1); Sodium 114 mmol/L (135-145); Total Protein 6.9 g/dL (6.5-8.0)
--- NOTE | 2021-06-23 21:02 | ECG_ITS ---
Test Reason : WEAKNESS Blood Pressure : / mmHG Vent. Rate : 128 BPM Atrial Rate : 267 BPM P-R Int : 000 ms QRS Dur : 106 ms QT Int : 432 ms P-R-T Axes : 000 030 056 degrees QTc Int : 630 ms Poor data quality, interpretation may be adversely affected Sinus tachycardia Cannot rule out Anterior infarct , age undetermined Abnormal ECG When compared with ECG of 22-DEC-2010 22:45, No significant change was found Referred By: Chris Guidry Electronically Signed By:MICHEAL SALINAS
--- NOTE | 2021-06-23 21:04 | ED.GENADULT ---
HPI - General Adult General Chief complaint: Weakness Stated complaint: body weakness Time Seen by Provider: 06/23/21 20:58 Source: patient Mode of arrival: EMS Limitations: no limitations History of Present Illness HPI narrative: Patient 35 years old alcoholic, substance abuse, portal hypertension and alcoholic gastritis was at [facility] last week left against medical advise on 06/14 comes here for vomiting for last few days which is dark colored and yellow discoloration feeling weak unable to walk daily drinker last drink 2 hours ago complaining of upper abdominal pain with history of pancreatitis also patient tested COVID positive 6 days ago denies any shortness of breath or chest pain or cough no fever no chills no confusion no black stools Related Data Home Medications Medication Instructions Recorded Confirmed No Known Home Meds 05/04/21 05/04/21 Allergies Allergy/AdvReac Type Severity Reaction Status Date / Time codeine [CODEINE] Allergy Mild REDNESS Verified 06/23/21 20:18 tramadol [TRAMADOL] AdvReac Unknown ON EFFEXOR Verified 06/23/21 20:18 From LIBRIUM Allergy Intermediate SWELLING Uncoded 06/06/20 18:01 Review of Systems Review of Systems: Yes all other systems are reviewed and are negative PMFSH Past Medical History Medical History Alcohol abuse with withdrawal Pancreatitis Social History Social History Household Members: Significant Other Housing: Apartment Do you presently have visiting nurse or other home services: No Alcohol intake: current Alcohol intake frequency: 3 or more drinks per day Alcohol type: beer, wine and hard liquor Patient Tobacco Use Status: Current everyday Tobacco user Cigarettes Per Day: 20 Years Smoked: 29 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 Oriented X3. In moderate distress very unkept condition with dry stool on his leg Eyes: Pallor++, icteric++ ENT: Pharynx normal. Oral Mucosa dry Neck: Normal inspection. Neck supple. CVS: Tachycardia with heart rate more than 130, Pulses normal. Respiratory: No respiratory distress. Equal air entry bilateral, no wheezing/rales/rhonchi Abdomen: Soft tender epigastric area no rebound tenderness or guarding Bowel sounds are present, no mass palpable, no CVA tenderness Skin: Skin warm and dry. Jaundiced. dry skin Extremities: No lower extremity edema. No calf tenderness Neuro: Oriented X 3. No motor deficit. No sensory deficit.No cerebellar signs , cranial nerves II-XII intact Medical Decision Making MDM Narrative Medical decision making narrative: Patient has significant metabolic abnormalities with history of alcohol abuse with similar complaints 1 weeks ago when he was admitted at [facility] with chronic hyponatremia and hypo kalemia secondary to dilution and poor oral intake and vomiting H&H is stable at this time elevated lactic acid is type B from secondary to alcohol use and dehydration will admit patient to ICU for close watch. Lab Data Lab results reviewed: Yes I reviewed the patient's lab results. Result diagrams: 06/23/21 20:21 06/23/21 20:21 Labs: Lab Results 06/23/21 06/23/21 06/23/21 Range/Units 20:21 20:21 20:21 WBC 16.3 H (4.8-10.8) X10*3/uL RBC 3.80 L (4.60-5.80) X10*6/uL Hgb 13.7 L (14.0-18.0) g/dl Hct 35.5 L (42-52) % MCV 93.4 (80-98) fL MCH 36.1 H (27.0-33.0) pg MCHC 38.6 H (31.0-36.0) g/dl RDW 15.9 (11.0-16.0) % Plt Count 110 L (160-400) X10*3/uL MPV 10.8 (9.4-12.4) fL Immature Gran % (Auto) 0.6 H (0.0-0.4) % Neut % (Auto) 88.9 H (45-73) % Lymph % (Auto) 3.8 L (20-40) % [place] % (Auto) 6.4 (2-11) % Eos % (Auto) 0.1 (0-4) % Baso % (Auto) 0.2 (0-2) % Lymph # (Auto) 0.6 L (1.2-4.9) X10*3/uL [place] # (Auto) 1.1 (0.1-1.2) X10*3/uL Eos # (Auto) 0.0 (0.0-0.4) X10*3/uL Baso # (Auto) 0.0 (0.0-0.2) X10*3/uL Abs Immat Gran (auto) 0.09 H (0.00-0.03) X10*3/uL Absolute Neuts (auto) 14.5 H (2.0-8.3) X10*3/uL Absolute Nucleated RBC 0.000 (0.0-0.012) X10*3/uL Nucleated RBC % (auto) 0.0 (0.0-0.2) /100WBC Smear Tech's Comments VERIFIED PT (9.9-13.0) SEC INR (0.9-1.1) APTT (24.1-38.0) SEC Sodium 114 L* (135-145) mmol/L Potassium 2.3 L* D (3.3-5.1) mmol/L Chloride 65 L D (96-108) mmol/L Carbon Dioxide 29 (22-29) mmol/L Anion Gap 22 H (12-20) BUN 4 L D (9-16) mg/dL Creatinine 0.61 (0.5-1.4) mg/dL Estim Creat Clear Calc 195.1 Estimated GFR > 60 Random Glucose 193 H D (60-115) mg/dL Osmolality 272 L (281-305) mosm/kg Lactic Acid (0.5-2.0) mmol/L Calcium 8.0 L (8.4-10.2) mg/dL Magnesium 1.4 L* (1.6-2.6) mg/dL Total Bilirubin 7.6 H (0.0-1.0) mg/dL AST 238 H (5-37) U/L ALT 89 H (0-40) U/L Alkaline Phosphatase 317 H D (39-117) U/L Ammonia (13-55) umol/L Total Protein 6.9 (6.5-8.0) g/dL Albumin 2.6 L D (3.5-5.0) g/dL Lipase 7 L (8-78) U/L Ethyl Alcohol mg/dL COVID-19 (JEAN) (Negative) COVID-19 Clin Com Blood Type Antibody Screen 06/23/21 06/23/21 06/23/21 Range/Units 21:20 21:20 21:20 WBC (4.8-10.8) X10*3/uL RBC (4.60-5.80) X10*6/uL Hgb (14.0-18.0) g/dl Hct (42-52) % MCV (80-98) fL MCH (27.0-33.0) pg MCHC (31.0-36.0) g/dl RDW (11.0-16.0) % Plt Count (160-400) X10*3/uL MPV (9.4-12.4) fL Immature Gran % (Auto) (0.0-0.4) % Neut % (Auto) (45-73) % Lymph % (Auto) (20-40) % [place] % (Auto) (2-11) % Eos % (Auto) (0-4) % Baso % (Auto) (0-2) % Lymph # (Auto) (1.2-4.9) X10*3/uL [place] # (Auto) (0.1-1.2) X10*3/uL Eos # (Auto) (0.0-0.4) X10*3/uL Baso # (Auto) (0.0-0.2) X10*3/uL Abs Immat Gran (auto) (0.00-0.03) X10*3/uL Absolute Neuts (auto) (2.0-8.3) X10*3/uL Absolute Nucleated RBC (0.0-0.012) X10*3/uL Nucleated RBC % (auto) (0.0-0.2) /100WBC Smear Tech's Comments PT 16.9 H (9.9-13.0) SEC INR 1.5 H (0.9-1.1) APTT 45.0 H (24.1-38.0) SEC Sodium (135-145) mmol/L Potassium (3.3-5.1) mmol/L Chloride (96-108) mmol/L Carbon Dioxide (22-29) mmol/L Anion Gap (12-20) BUN (9-16) mg/dL Creatinine (0.5-1.4) mg/dL Estim Creat Clear Calc Estimated GFR Random Glucose (60-115) mg/dL Osmolality (281-305) mosm/kg Lactic Acid (0.5-2.0) mmol/L Calcium (8.4-10.2) mg/dL Magnesium (1.6-2.6) mg/dL Total Bilirubin (0.0-1.0) mg/dL AST (5-37) U/L ALT (0-40) U/L Alkaline Phosphatase (39-117) U/L Ammonia 40 (13-55) umol/L Total Protein (6.5-8.0) g/dL Albumin (3.5-5.0) g/dL Lipase (8-78) U/L Ethyl Alcohol 119 mg/dL COVID-19 (JEAN) (Negative) COVID-19 Clin Com Blood Type Antibody Screen 06/23/21 06/23/21 06/23/21 Range/Units 21:22 21:29 21:33 WBC (4.8-10.8) X10*3/uL RBC (4.60-5.80) X10*6/uL Hgb (14.0-18.0) g/dl Hct (42-52) % MCV (80-98) fL MCH (27.0-33.0) pg MCHC (31.0-36.0) g/dl RDW (11.0-16.0) % Plt Count (160-400) X10*3/uL MPV (9.4-12.4) fL Immature Gran % (Auto) (0.0-0.4) % Neut % (Auto) (45-73) % Lymph % (Auto) (20-40) % [place] % (Auto) (2-11) % Eos % (Auto) (0-4) % Baso % (Auto) (0-2) % Lymph # (Auto) (1.2-4.9) X10*3/uL [place] # (Auto) (0.1-1.2) X10*3/uL Eos # (Auto) (0.0-0.4) X10*3/uL Baso # (Auto) (0.0-0.2) X10*3/uL Abs Immat Gran (auto) (0.00-0.03) X10*3/uL Absolute Neuts (auto) (2.0-8.3) X10*3/uL Absolute Nucleated RBC (0.0-0.012) X10*3/uL Nucleated RBC % (auto) (0.0-0.2) /100WBC Smear Tech's Comments PT (9.9-13.0) SEC INR (0.9-1.1) APTT (24.1-38.0) SEC Sodium (135-145) mmol/L Potassium (3.3-5.1) mmol/L Chloride (96-108) mmol/L Carbon Dioxide (22-29) mmol/L Anion Gap (12-20) BUN (9-16) mg/dL Creatinine (0.5-1.4) mg/dL Estim Creat Clear Calc Estimated GFR Random Glucose (60-115) mg/dL Osmolality (281-305) mosm/kg Lactic Acid 10.3 H* (0.5-2.0) mmol/L Calcium (8.4-10.2) mg/dL Magnesium (1.6-2.6) mg/dL Total Bilirubin (0.0-1.0) mg/dL AST (5-37) U/L ALT (0-40) U/L Alkaline Phosphatase (39-117) U/L Ammonia (13-55) umol/L Total Protein (6.5-8.0) g/dL Albumin (3.5-5.0) g/dL Lipase (8-78) U/L Ethyl Alcohol mg/dL COVID-19 (JEAN) Positive A (Negative) COVID-19 Clin Com See Note Blood Type A Positive Antibody Screen NEGATIVE ECG Data Attestation: I personally reviewed and interpreted this ECG as follows: Interpretation: Sinus tachycardia heart rate 128 beats per minute with PACs normal intervals no acute ischemic changes Critical Care Time Critical Care Time Critical Care Time: Yes Total Critical Care Time: 60 Attestation: I spent 60 minutes of critical care, with interventions, assessments, speaking to patient, consultants. Discharge Plan Discharge Clinical Impression: Acute alcoholic hepatitis, Acute hyponatremia, Acute hypokalemia, Alcohol abuse, Acute upper GI bleeding Patient Disposition: Admitted As Inpatient Discharge Date/Time: 06/24/21 00:07
[2021-06-23] MEDS: 0.9 % Sodium Chloride 1,000 ML 999 ML IVCONT (21:26)
[2021-06-23 21:28] LABS: Magnesium 1.4 mg/dL (1.6-2.6); Mean Corpuscular HGB Conc 38.6 g/dl (31.0-36.0)
[2021-06-23 21:29] LABS: Osmolality, Serum 272 mosm/kg (281-305); SLIDE REVIEW VERIFIED
[2021-06-23] MEDS: Pantoprazole Sodium 40 MG/10 ML VIAL 80 MG IVPUSH (21:33)
[2021-06-23] MEDS: ondansetron HCL 4 MG/2 ML VIAL IVPUSH (21:33)
[2021-06-23 21:39] LABS: COVID-19 Test Positive (Negative); IDNOW Serial# 9DD0AD1C
[2021-06-23 21:42] LABS: INTERNATIONAL NORM RATIO 1.5 (0.9-1.1); Prothrombin Time 16.9 SEC (9.9-13.0)
[2021-06-23] MEDS: Potassium Chloride/H20 10 MEQ/100 ML PIGGYBACK 100 MEQ IV (21:42)
[2021-06-23 21:46] LABS: Ethanol 119 mg/dL
[2021-06-23 21:52] LABS: Ammonia 40 umol/L (13-55)
[2021-06-23 21:53] LABS: Lactic Acid 10.3 mmol/L (0.5-2.0)
[2021-06-23] MEDS: Magnesium Sulfate/H2O 2 GM/50 ML PIGGYBACK IV (22:00)
[2021-06-23] MEDS: LORazepam 2 MG/ML VIAL IVPUSH (22:00)
[2021-06-23] MEDS: cefEPime HCl 2 GM in 0.9 % Sodium Chloride 50 ML IV (22:08)
[2021-06-23] MEDS: Pantoprazole Sodium 80 MG in 0.9 % Sodium Chloride 80 ML 10 MG IV (22:48)
--- NOTE | 2021-06-23 23:01 | P.HPCC_ITS ---
History of Present Illness Date of Service: 06/23/21 <Aline Kirkland NP - Last Filed: 06/24/21 00:35> Attending physician on admission: Sandra Valdez <Aline Kirkland NP - Last Filed: 06/24/21 00:35> Chief Complaint: Generalized weakness <Aline Kirkland NP - Last Filed: 06/24/21 00:35> This is a 35-year-old male with a past medical history of alcohol abuse, complicated by withdrawal seizures, opioid abuse, GI bleed with portal hypertensive gastritis and frequent episodes of pancreatitis? who presented to the emergency room with? generalized weakness.? He reports he was at [facility] last week, was diagnosed with COVID-19? but left ? Against medical advice. ? He now reports? multiple episodes of vomiting worsening in the last few days, feeling weak and unable to walk,? he is a daily drinker and admits to drinking 2 hours before? coming to the emergency room. In the ED he denied any respiratory issues.? Initial vital signs,? patient afebrile, ? respiratory rate 20, satting? 94% on room air. ? Heart rate 130s,? BP 150/98.? Laboratory data significant for:? WBC 16.3,? hemoglobin 13.7, hematocrit 35.5,? serum sodium 114, potassium 2.3, chloride 65, BUN 4,? osmolality 272, calcium 8, magnesium 1.4, total bilirubin 7.6, AST 238, ALT 89, alk phos 317,? lactic acid 10.3, albumin 2.6, lipase 7.? In the emergency room he received? cefepime, 1 L normal saline,? 2 mg of Ativan x2, ? 2 g ? magnesium, ? Protonix 80 mg,? Protonix drip,? 40 mEq potassium, as well as number saline with 40 mEq potassium was initiated.? Patient will be admitted to the ICU for management of acute hyponatremia? and COVID-19? <Aline Kirkland NP - Last Filed: 06/24/21 00:35> Review of Systems Review of Systems: Constitutional symptoms:? Fatigue, no fever, no chills.?? Skin symptoms:? No jaundice, no rash.?? Eye symptoms:? No discharge,?? ENMT symptoms:? No nasal congestion,?? Respiratory symptoms:? No shortness of breath,?no cough Cardiovascular symptoms:? No peripheral edema,?? Gastrointestinal symptoms:? Abdominal pain, nausea, vomiting. no diarrhea. Genitourinary symptoms:? No hematuria,?? Musculoskeletal symptoms:? No back pain,?? Neurologic symptoms:? No dizziness,?? Psychiatric symptoms:? Substance abuse.? Allergy/immunologic symptoms:? No seasonal allergies,?? ? <Aline Kirkland NP - Last Filed: 06/24/21 00:35> [facility] Past Medical History Medical History: Medical History Alcohol abuse with withdrawal Pancreatitis <Aline Kirkland NP - Last Filed: 06/24/21 00:35> Social History Social History: Social History Household Members: Significant Other Housing: Apartment Do you presently have visiting nurse or other home services: No Alcohol intake: current Alcohol intake frequency: 3 or more drinks per day Alcohol type: beer, wine and hard liquor Patient Tobacco Use Status: Current everyday Tobacco user Cigarettes Per Day: 20 Years Smoked: 29 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 Drugs, Crack/Cocaine, Heroin, Marijuana and Opiates Currently Displaying Signs/Symptoms of Drug Intoxication Withdrawal: No Advance Directives: No Advance Directives Information Provided: Yes Do you have thoughts of harming others: None Do you have a plan to hurt others: No Plan service: No Current occupational status: unemployed <Aline Kirkland NP - Last Filed: 06/24/21 00:35> Meds Allergies/Adverse reactions: Allergies Allergy/AdvReac Type Severity Reaction Status Date / Time codeine [CODEINE] Allergy Mild REDNESS Verified 06/23/21 20:18 tramadol [TRAMADOL] AdvReac Unknown ON EFFEXOR Verified 06/23/21 20:18 From LIBRIUM Allergy Intermediate SWELLING Uncoded 06/06/20 18:01 <Aline Kirkland NP - Last Filed: 06/24/21 00:35> Active Medications: Current Medications Heparin Sodium (Porcine) (Heparin Sodium,Porcine 5,000 Unit/Ml Vial) 5,000 unit SUBCUT Q8H KIRSTEN Potassium Chloride () 10 meq in 100 mls @ 100 mls/hr IV Q1H KIRSTEN Stop: 06/24/21 01:14 Last Admin: 06/23/21 21:42 Dose: 100 mls/hr Documented by: Potassium Chloride/Sodium Chloride () 40 meq in 1,000 mls @ 250 mls/hr IVCONT .Q4H KIRSTEN Pantoprazole Sodium 80 mg/ (Sodium Chloride) 100 mls @ 10 mls/hr IV .Q10H KIRSTEN Last Admin: 06/23/21 22:48 Dose: 8 mg/hr, 10 mls/hr Documented by: <Aline Kirkland NP - Last Filed: 06/24/21 00:35> Home medications: Home Medications Medication Instructions Recorded Confirmed Last Taken Type No Known Home Meds 05/04/21 05/04/21 Unknown History <Aline Kirkland NP - Last Filed: 06/24/21 00:35> Physical Exam Vital Signs: Vital Signs: Last Vital Signs Temp 98.2 F 06/23/21 20:19 Pulse 136 H 06/23/21 20:19 Resp 20 06/23/21 20:19 BP 150/98 H 06/23/21 20:19 Pulse Ox 94 06/23/21 20:19 Body Mass Index 0.2 <Aline Kirkland NP - Last Filed: 06/24/21 00:35> Focused assessment performed at 2320 General:? Alert and oriented x 3.?? Skin:?Mild Jaundice.? Head:? Normocephalic, atraumatic.?? Neck:? Trachea midline.? Eye:? PERRLA, Ears, nose, mouth and throat:? Oral mucosa moist.? Cardiovascular:? Regular rate and rhythm. Normal capillary refills? Respiratory:? Respirations are non-labored.? Gastrointestinal:? Pain on palpation of the midepigastrium, LUQ.? Denies pain in the lower abdomen or right upper quadrant., Guarding: Voluntary, Rebound: Negative.?? Neurological:? Alert and oriented to person, place, time, and situation.? Psychiatric:? Cooperative.? <Aline Kirkland NP - Last Filed: 06/24/21 00:35> Results Labs CBC and Chem 7: : 10/05/21 05:15 06/24/21 05:15 <Aline Kirkland NP - Last Filed: 06/24/21 00:35> Labs: Laboratory Results - last 24 hr 06/23/21 06/23/21 06/23/21 20:21 20:21 20:21 MCV 93.4 MCH 36.1 H MCHC 38.6 H RDW 15.9 Plt Count 110 L MPV 10.8 Immature Gran % (Auto) 0.6 H Neut % (Auto) 88.9 H Lymph % (Auto) 3.8 L Cottle % (Auto) 6.4 Eos % (Auto) 0.1 Baso % (Auto) 0.2 Lymph # (Auto) 0.6 L [place] # (Auto) 1.1 Eos # (Auto) 0.0 Baso # (Auto) 0.0 Abs Immat Gran (auto) 0.09 H Absolute Neuts (auto) 14.5 H Absolute Nucleated RBC 0.000 Nucleated RBC % (auto) 0.0 Smear Tech's Comments VERIFIED PT INR APTT Anion Gap 22 H Estim Creat Clear Calc 195.1 Estimated GFR > 60 Random Glucose 193 H D Osmolality 272 L Lactic Acid Calcium 8.0 L Magnesium 1.4 L* Total Bilirubin 7.6 H AST 238 H ALT 89 H Alkaline Phosphatase 317 H D Ammonia Total Protein 6.9 Albumin 2.6 L D Lipase 7 L Ethyl Alcohol COVID-19 (JEAN) COVID-19 [facility] Com Blood Type Antibody Screen 06/23/21 06/23/21 06/23/21 21:20 21:20 21:20 MCV MCH MCHC RDW Plt Count MPV Immature Gran % (Auto) Neut % (Auto) Lymph % (Auto) [place] % (Auto) Eos % (Auto) Baso % (Auto) Lymph # (Auto) [place]le # (Auto) Eos # (Auto) Baso # (Auto) Abs Immat Gran (auto) Absolute Neuts (auto) Absolute Nucleated RBC Nucleated RBC % (auto) Smear Tech's Comments PT 16.9 H INR 1.5 H APTT 45.0 H Anion Gap Estim Creat Clear Calc Estimated GFR Random Glucose Osmolality Lactic Acid Calcium Magnesium Total Bilirubin AST ALT Alkaline Phosphatase Ammonia 40 Total Protein Albumin Lipase Ethyl Alcohol 119 COVID-19 (JEAN) COVID-19 [facility] Com Blood Type Antibody Screen 06/23/21 06/23/21 06/23/21 21:22 21:29 21:33 MCV MCH MCHC RDW Plt Count MPV Immature Gran % (Auto) Neut % (Auto) Lymph % (Auto) [place] % (Auto) Eos % (Auto) Baso % (Auto) Lymph # (Auto) [place] # (Auto) Eos # (Auto) Baso # (Auto) Abs Immat Gran (auto) Absolute Neuts (auto) Absolute Nucleated RBC Nucleated RBC % (auto) Smear Tech's Comments PT INR APTT Anion Gap Estim Creat Clear Calc Estimated GFR Random Glucose Osmolality Lactic Acid 10.3 H* Calcium Magnesium Total Bilirubin AST ALT Alkaline Phosphatase Ammonia Total Protein Albumin Lipase Ethyl Alcohol COVID-19 (JEAN) Positive A COVID-19 Clin Com See Note Blood Type A Positive Antibody Screen NEGATIVE <Aline Kirkland NP - Last Filed: 06/24/21 00:35> Assessment and Plan (1) Acute hyponatremia: Status: Acute <Aline Kirkland NP - Last Filed: 06/24/21 00:35> Neuro: no aute issues Cardiac:?? Sepsis-? Patient with elevated lactic? and tachycardic but is afebrile, is not tachypneic.? ? I do not believe this is septic shock as patient is normotensive? and transaminitis is chronic due to alcohol abuse.? Will continue? broad- spectrum antibiotics? for possible colitis.? Pulmonary:? ?COVID-19 infection:? patient was diagnosed with COVID about a week ago at [facility].? Is on room air,? does not? verbalize any acute shortness of breath.? Will continue to closely monitor for worsening COVID? i nfection.? Renal:? ?Hyponatremia:? sodium was 114 today,? open chart review at [facility] ter initial sodium a week ago was 116.? ? He has no? neural deficits at this time. ? Hyponatremia is likely from alcohol abuse.? He received a L of normal saline at the emergency room.? Will add normal saline with 40 mEq of potassium at 250 mL/hour.? And repeat chemistries.? Avoid over-correction of sodium.? Frequent neuro check Hypokalemia- ? potassium is 2.3 today, at [facility] week ago was 2.2.? He did leave AMA and was not able to be corrected .? will continue potassium replacement as tolerated.? Received magnesium in the emergency room? no further magnesium this time.? Repeat chemistries Endo:? No acute issues.?? GI:?? ?Pancreatitis vs colitis : Has history of pancreatitis, Lipase was negative? but CT scan is pending. This is likely colitis.? He received cefepime in the emergency room.? Will switch to Zosyn.? Obtain CT scan ?? GI bleed:? patient vomited ?brown?.? Has not been witnessed.? H&H stable at this time.? He did receive a loading dose of Protonix at the emergency room.? Do not think Protonix drip is necessary at this time.? Will continue to trend H&H closely Acute? alcoholic hepatitis:? likely from chronic ETOH abuse.? Continue to trend? Heme/Onc:? Thrombocytoepnia due to alcohol intake monitor, no signs of bleeding at this time ID:? Sepsis-? ? has multiple causes like viral pneumonia and colitis. ? He received cefepime in the emergency room.? Will broaden to Zosyn? until blood cultures are back.? Psych:? active EtOH abuse.? Last drink 2 hours before admission.? Started on phenobarb protocol Diet: NPO until CT scan? prophylaxis:? compression devices due to chronic thrombocytopenia ?Critical care time:? X 90 minutes of critical care time ?Code? status:? FULL CODE? <Aline Kirkland NP - Last Filed: 06/24/21 00:35> (2) Acute alcoholic hepatitis: Status: Acute <Aline Kirkland NP - Last Filed: 06/24/21 00:35> (3) Sepsis: Status: Acute <Aline Kirkland NP - Last Filed: 06/24/21 00:35> (4) Acute hypokalemia: Status: Acute <Aline Kirkland NP - Last Filed: 06/24/21 00:35> (5) Alcohol abuse: Status: Acute <Aline Kirkland NP - Last Filed: 06/24/21 00:35> (6) Colitis: Status: Acute <Aline Kirkland NP - Last Filed: 06/24/21 00:35> (7) Thrombocytopenia: Status: Acute <Aline Kirkland NP - Last Filed: 06/24/21 00:35> (8) COVID-19: Status: Acute <lAine Kirkland NP - Last Filed: 06/24/21 00:35> Critical Care Time Critical Care Time (minutes): 90 <Aline Kirkland NP - Last Filed: 06/24/21 00:35>
[2021-06-23] MEDS: KCl 40 mEq in 0.9 % Sodium Chl 40 MEQ/1,000 ML IV.SOLN 250 MEQ IVCONT (23:06)
[2021-06-23 23:17] VITALS: BP 143/94; PULSE 125; RESP 17; TEMP 37.2; O2SAT 96
--- NOTE | 2021-06-23 23:32 | PC.NURSE ---
per ICU provider (OMERO Mireles) pt ok to recieve 40meq in 1000ml over 4 hours at the same time as 10meq in 100ml over 1 hour. this nurse confirmed with provider that both are to be administered at the same time.
[2021-06-23 23:40] LABS: Reflex Lactate? Lactic Acid Added
--- NOTE | 2021-06-23 23:44 | PC.NURSE ---
nurse to nurse report given to Candelario RN in ICU
[2021-06-24] VITALS (21 sets, daily range): BP systolic 128–155; BP diastolic 85–102; PULSE 90–130; RESP 15–21; TEMP 36.3–37.2; O2SAT 89–97; BMI 24.2
--- NOTE | 2021-06-24 00:14 | ECG_ITS ---
Test Reason : CARDIAC STATUS Blood Pressure : / mmHG Vent. Rate : 119 BPM Atrial Rate : 119 BPM P-R Int : 128 ms QRS Dur : 082 ms QT Int : 370 ms P-R-T Axes : 069 005 031 degrees QTc Int : 520 ms Sinus tachycardia Cannot rule out Anterior infarct , age undetermined Abnormal ECG When compared with ECG of 23-JUN-2021 21:49, No significant change was found Referred By: Tricia Mcguire Electronically Signed By:MICHEAL SALINAS
[2021-06-24] MEDS: Piperacillin Sodium/Tazobactam 4.5 GM in 0.9 % Sodium Chloride 100 ML IV ×4 (00:55→18:23)
[2021-06-24 00:56] LABS: ~Lactic Acid-LAB USE ONLY 5.5 mmol/L (0.5-2.0)
[2021-06-24 00:57] LABS: Appearance Urine CLEAR; Color Urine YELLOW; Glucose Urine UA 100 MG/DL (NEG); Leukocyte Esterase Urine NEG (NEG); Nitrite Urine NEG (NEG); PH 5.5 (5.0-8.0); Specific Gravity - Urine 1.025 (1.005-1.025); Urine Blood NEG (NEG); Urine Ketones 5 MG/DL (NEG); Urine Protein NEG (NEG-TRACE)
[2021-06-24 00:59] LABS: Anion Gap 18 (12-20); Blood Urea Nitrogen 3 mg/dL (9-16); Calcium 7.2 mg/dL (8.4-10.2); Carbon Dioxide 28 mmol/L (22-29); Chloride 73 mmol/L (96-108); Creatinine Clr Calc Pharmacy 242.9; Estimated Glomerular Filt Rate > 60; Glucose Random 138 mg/dL (60-115); Potassium 3.1 mmol/L (3.3-5.1); Sodium 116 mmol/L (135-145)
[2021-06-24] MEDS: Potassium Chloride/H20 10 MEQ/100 ML PIGGYBACK 100 MEQ IV ×3 (00:59→03:34)
[2021-06-24] MEDS: PHENobarbitaL sodium 130 MG/ML VIAL 329 MG IM (00:59)
[2021-06-24 01:08] LABS: Osmolality Urine 369 mosm/kg (373-1093)
[2021-06-24 01:14] LABS: Sodium Urine Random < 20.0 mmol/L
[2021-06-24 01:18] LABS: Chloride Urine Random < 20.0 mmol/L
[2021-06-24] MEDS: iohexoL 350 MG/ML 100 ML INFUS..BTL 85 ML IV (02:04)
[2021-06-24] MEDS: KCl 40 mEq in 0.9 % Sodium Chl 40 MEQ/1,000 ML IV.SOLN 250 MEQ IVCONT (02:25)
[2021-06-24 02:37] LABS: Reflex Lactate? 2 Y
[2021-06-24 03:07] LABS: ~Lactic Acid-LAB USE ONLY 3.6 mmol/L (0.5-2.0)
[2021-06-24] MEDS: PHENobarbitaL sodium 130 MG/ML VIAL 247 MG IM ×2 (03:35→05:45)
--- NOTE | 2021-06-24 04:00 | PC.NURSE ---
ADMIT TO 261-1...DROWSY BUT CONVERSE...CHAVARRIA...ASSISTS IN TURNING AND REPOSITIONING...NS 0.9%/KCL 40MEQ 250 CC/HR AND KCL 10MEQ/100ML X4 BAGS...IV FLUIDS WEANED TO 100 CC/HR...INCONTINANT BROWN STOOL AT ADMISSION...ESCALANTE INSERT PER ICU ELECTRONIC GAME DEVELOPER...750ml ORANGE-YELLOW URINE OBTAINED ON INSERTION...TO CT DEPT W/O INCIDENT...PHENOBARBITOL PROTOCOL ORDERED BY ELECTRONIC GAME DEVELOPER...PROTONIX DRIP HELD BY ELECTRONIC GAME DEVELOPER POST-ADMISSION,SINUS TACH HR 120'S..ELECTRONIC GAME DEVELOPER AWARE..O2 5 L/M...SAO2 90-91%..ELECTRONIC GAME DEVELOPER AWARE.COVID (+)...SAO2 GOAL 88% OR HIGHER PER ELECTRONIC GAME DEVELOPER
[2021-06-24 06:05] LABS: Alanine Aminotransferase 70 U/L (0-40); Albumin Level 2.1 g/dL (3.5-5.0); Alkaline Phosphatase 256 U/L (39-117); Anion Gap 15 (12-20); Aspartate Amino Transferase 189 U/L (5-37); Blood Urea Nitrogen 3 mg/dL (9-16); Calcium 7.4 mg/dL (8.4-10.2); Carbon Dioxide 33 mmol/L (22-29); Chloride 76 mmol/L (96-108); Creatinine Clr Calc Pharmacy 260.5; Estimated Glomerular Filt Rate > 60; Glucose Random 125 mg/dL (60-115); Magnesium 1.9 mg/dL (1.6-2.6); Potassium 3.4 mmol/L (3.3-5.1); Sodium 121 mmol/L (135-145); Total Protein 5.9 g/dL (6.5-8.0)
[2021-06-24 06:21] LABS: Imm Gran Abs Auto 0.02 X10*3/uL (0.00-0.03); Imm Gran Pct Auto 0.5 % (0.0-0.4); Lymphocytes Absolute Auto 0.2 X10*3/uL (1.2-4.9); Lymphocytes Percent Auto 6.3 % (20-40); MANUAL DIFF FLAG SCAN; Mean Corpuscular Hemoglobin 35.7 pg (27.0-33.0); Mean Platelet Volume 11.1 fL (9.4-12.4); Monocytes Absolute Auto 0.3 X10*3/uL (0.1-1.2); Monocytes Percent Auto 7.4 % (2-11); Neutrophils Absolute Auto 3.3 X10*3/uL (2.0-8.3); Neutrophils Percent Auto 85.8 % (45-73); Red Cell Distribution Width 16.3 % (11.0-16.0); SCAN SMEAR FLAG 1
[2021-06-24 06:28] LABS: Mean Corpuscular HGB Conc 37.9 g/dl (31.0-36.0)
[2021-06-24 06:29] LABS: Hemoglobin 12.5 g/dl (14.0-18.0)
[2021-06-24 06:30] LABS: Platelet Count 90 X10*3/uL (160-400)
[2021-06-24 06:31] LABS: Mean Corpuscular Volume 94.3 fL (80-98)
[2021-06-24] MEDS: PHENobarbitaL 30 MG TABLET 60 MG PO (07:34)
[2021-06-24 07:48] LABS: SLIDE REVIEW VERIFIED
--- NOTE | 2021-06-24 08:22 | ECG_ITS ---
Test Reason : CARDIAC STATUS Blood Pressure : / mmHG Vent. Rate : 122 BPM Atrial Rate : 122 BPM P-R Int : 126 ms QRS Dur : 080 ms QT Int : 426 ms P-R-T Axes : 056 002 028 degrees QTc Int : 607 ms Sinus tachycardia Otherwise normal ECG When compared with ECG of 24-JUN-2021 00:14, No significant change was found Referred By: Tricia Mcguire Electronically Signed By:MICHEAL SALINAS
--- NOTE | 2021-06-24 08:26 | P.CDIC_ITS ---
CDI Concurrent Query Documentation Clarification: PHYSICIAN'S DOCUMENTATION REQUEST Date of Query: 06/24/21 0828 Patient Name: Felix Gregory Admit Date: 06/23/21 Dear Doctor, A review of the medical record indicates additional documentation may be needed. Please review below and update the documentation accordingly. Acute alcoholic hepatitis with ascites Acute alcoholic hepatitis without ascites Please specify if known or undetermined/other etiology Risk Factors/Clinical Indicators/Treatments CT Abdomen/pelvis 06/24 - There is a small to moderate volume of Ascites. Please indicate in your progress notes if you are in agreement that the above diagnosis is valid for this patient: * Yes, [ alcoholic hepatitis with ascites ] is a valid diagnosis for this patient * No, [ ] is a not a valid diagnosis for this patient * The diagnosis of [ ] is not yet confirmed but remains a suspected condition (This option is only for use at the time of discharge or during a retrospective review.) * Other (please specify) * Unable to determine Use of terms such as suspected, likely, concern for, or probable (associated with a specific diagnosis that is being evaluated, monitored, or treated as if it exists) are acceptable and can be coded in the inpatient setting, when documented at the time of discharge. Thank you, Yoselin Mcdonnell [facility], CDIS Extension: [phone] Please use your independent medical judgment in providing your response. THIS QUERY IS PART OF THE PERMANENT MEDICAL RECORD Provider Response: Moderate Protein-Calorie Malnutrition Other Diagnosis: alcoholic cirrhosis with hepatic insufficiency and portal hypertension hypovolemia with lactic acidosis based on volume contraction and hypoperfusion alcoholic ketoacidosis severe hypokalemia due to vomiting
--- NOTE | 2021-06-24 08:42 | P.CDIC_ITS ---
CDI Concurrent Query Documentation Clarification: PHYSICIAN'S DOCUMENTATION REQUEST Date of Query: 06/24/21 0843 Patient Name: Felix Gregory Admit Date: 06/23/21 Dear Doctor, A review of the medical record indicates additional documentation may be needed. Please review below and update the documentation accordingly. Clinical Indicators: Risk Factors/Clinical Indicators/Treatments Lab findings: magnesium 1.4 L Received Magnesium sulfate IV in ED. Based on the above, could you clarify in the Progress Notes the appropriate diagnosis, if significant, that supports the above abnormalities and additional evaluation, monitoring, and/or treatment rendered: Hypomagnesemia or other etiology * Labs indicate a diagnosis of ( hypo magnesemia due to GI loss and malabsorptionplease specify) * Other (please specify) * Unable to determine Use of terms such as suspected, likely, concern for, or probable (associated with a specific diagnosis that is being evaluated, monitored, or treated as if it exists) are acceptable and can be coded in the inpatient setting, when documented at the time of discharge. Thank you, Yoselin Mcdonnell [facility], CDIS Extension: [phone] Please use your independent medical judgment in providing your response. THIS QUERY IS PART OF THE PERMANENT MEDICAL RECORD Provider Response: Other Other Diagnosis: hypo magnesemia due to GI loss based on chronic alcohol abuse
--- NOTE | 2021-06-24 10:01 | PM.CCPN ---
Subjective Subjective Date of Service: 06/24/21 Interval History: 35-year-old male with chronic alcohol abuse with evidence of hepatic insufficiency due to so alcoholic cirrhosis as well as portal hypertension with secondary gastropathy and chronic intestinal manifestations who comes in with acute alcohol intoxication with alcoholic hepatitis and gastropathy as well as alcoholic ketoacidosis and hypovolemic with marked circulatory contraction and secondary lactic acidosis initially presents with positive anion gap metabolic acidosis on these to combined reasons with significant greater than 30 osmol out gap based on the alcohol level of 119 as well as the presence of elevated lactate and the probable presence of beta hydroxybutyrate and clearly electrolyte abnormalities on the basis of volume loss predominantly from vomiting and clearly in this otherwise asymptomatic individual with no evidence of encephalopathy needed volume replacement with combination of normal saline as well as potassium chloride but also was noted to be hypoxic without respiratory distress and chest x-ray to me was unrevealing but he was diagnosed and confirmed here in the ER is being COVID-19 positive and so we await a chest CT scan as well Critical Care Time (minutes): 60 Physical Exam Vital Signs: Vital Signs: Last Vital Signs Temp 98.6 F 06/24/21 09:00 Pulse 120 H 06/24/21 09:00 Resp 19 06/24/21 09:00 BP 138/91 H 06/24/21 09:00 Pulse Ox 89 L 06/24/21 09:00 Oxygen Flow Rate 2 06/23/21 22:26 Body Mass Index 24.2 oriented to person and place and nonfocal neurologically with no evidence of seizure issue but note well that he has had withdrawal manifestations neck veins flat but good bilateral carotid upstrokes no gallops palpable hepatomegaly but it active bowel sounds and nontender skin intact Objective Data Labs CBC & Chem 7: 06/24/21 05:15 06/24/21 05:15 Labs: Laboratory Results - last 24 hr 06/23/21 06/23/21 06/23/21 20:21 20:21 20:21 WBC 16.3 H RBC 3.80 L Hgb 13.7 L Hct 35.5 L MCV 93.4 MCH 36.1 H MCHC 38.6 H RDW 15.9 Plt Count 110 L MPV 10.8 Immature Gran % (Auto) 0.6 H Neut % (Auto) 88.9 H Lymph % (Auto) 3.8 L [place] % (Auto) 6.4 Eos % (Auto) 0.1 Baso % (Auto) 0.2 Lymph # (Auto) 0.6 L [place] # (Auto) 1.1 Eos # (Auto) 0.0 Baso # (Auto) 0.0 Abs Immat Gran (auto) 0.09 H Absolute Neuts (auto) 14.5 H Absolute Nucleated RBC 0.000 Nucleated RBC % (auto) 0.0 Smear Tech's Comments VERIFIED PT INR APTT Sodium 114 L* Potassium 2.3 L* D Chloride 65 L D Carbon Dioxide 29 Anion Gap 22 H BUN 4 L D Creatinine 0.61 Estim Creat Clear Calc 195.1 Estimated GFR > 60 Random Glucose 193 H D Osmolality 272 L Lactic Acid Lactic Acid Fup @ 2Hr Lactic Acid Fup @ 4Hr Calcium 8.0 L Magnesium 1.4 L* Total Bilirubin 7.6 H AST 238 H ALT 89 H Alkaline Phosphatase 317 H D Ammonia Total Protein 6.9 Albumin 2.6 L D Lipase 7 L Urine Color Urine Appearance Urine pH Ur Specific [place] Urine Protein Urine Glucose (UA) Urine Ketones Urine Blood Urine Nitrite Ur Leukocyte Esterase Urine Osmolality Ur Random Sodium Ur Random Chloride Ethyl Alcohol COVID-19 (JEAN) COVIDNandi Proteins Blood Type Antibody Screen 06/23/21 06/23/21 06/23/21 21:20 21:20 21:20 WBC RBC Hgb Hct MCV MCH MCHC RDW Plt Count MPV Immature Gran % (Auto) Neut % (Auto) Lymph % (Auto) [place] % (Auto) Eos % (Auto) Baso % (Auto) Lymph # (Auto) [place] # (Auto) Eos # (Auto) Baso # (Auto) Abs Immat Gran (auto) Absolute Neuts (auto) Absolute Nucleated RBC Nucleated RBC % (auto) Smear Tech's Comments PT 16.9 H INR 1.5 H APTT 45.0 H Sodium Potassium Chloride Carbon Dioxide Anion Gap BUN Creatinine Estim Creat Clear Calc Estimated GFR Random Glucose Osmolality Lactic Acid Lactic Acid Fup @ 2Hr Lactic Acid Fup @ 4Hr Calcium Magnesium Total Bilirubin AST ALT Alkaline Phosphatase Ammonia 40 Total Protein Albumin Lipase Urine Color Urine Appearance Urine pH Ur Specific [place] Urine Protein Urine Glucose (UA) Urine Ketones Urine Blood Urine Nitrite Ur Leukocyte Esterase Urine Osmolality Ur Random Sodium Ur Random Chloride Ethyl Alcohol 119 COVID-19 (JEAN) COVIDNandi Proteins Blood Type Antibody Screen 06/23/21 06/23/21 06/23/21 21:22 21:29 21:33 WBC RBC Hgb Hct MCV MCH MCHC RDW Plt Count MPV Immature Gran % (Auto) Neut % (Auto) Lymph % (Auto) [place] % (Auto) Eos % (Auto) Baso % (Auto) Lymph # (Auto) [place] # (Auto) Eos # (Auto) Baso # (Auto) Abs Immat Gran (auto) Absolute Neuts (auto) Absolute Nucleated RBC Nucleated RBC % (auto) Smear Tech's Comments PT INR APTT Sodium Potassium Chloride Carbon Dioxide Anion Gap BUN Creatinine Estim Creat Clear Calc Estimated GFR Random Glucose Osmolality Lactic Acid 10.3 H* Lactic Acid Fup @ 2Hr Lactic Acid Fup @ 4Hr Calcium Magnesium Total Bilirubin AST ALT Alkaline Phosphatase Ammonia Total Protein Albumin Lipase Urine Color Urine Appearance Urine pH Ur Specific [place] Urine Protein Urine Glucose (UA) Urine Ketones Urine Blood Urine Nitrite Ur Leukocyte Esterase Urine Osmolality Ur Random Sodium Ur Random Chloride Ethyl Alcohol COVID-19 (JEAN) Positive A COVID-19 Clin Com See Note Blood Type A Positive Antibody Screen NEGATIVE 06/24/21 06/24/21 06/24/21 00:34 00:34 00:34 WBC RBC Hgb Hct MCV MCH MCHC RDW Plt Count MPV Immature Gran % (Auto) Neut % (Auto) Lymph % (Auto) [place] % (Auto) Eos % (Auto) Baso % (Auto) Lymph # (Auto) [place] # (Auto) Eos # (Auto) Baso # (Auto) Abs Immat Gran (auto) Absolute Neuts (auto) Absolute Nucleated RBC Nucleated RBC % (auto) Smear Tech's Comments PT INR APTT Sodium 116 L* Potassium 3.1 L D Chloride 73 L Carbon Dioxide 28 Anion Gap 18 BUN 3 L Creatinine 0.49 L Estim Creat Clear Calc 242.9 Estimated GFR > 60 Random Glucose 138 H Osmolality Lactic Acid Lactic Acid Fup @ 2Hr 5.5 H* Lactic Acid Fup @ 4Hr Calcium 7.2 L D Magnesium Total Bilirubin AST ALT Alkaline Phosphatase Ammonia Total Protein Albumin Lipase Urine Color YELLOW Urine Appearance CLEAR Urine pH 5.5 Ur Specific [place] 1.025 Urine Protein NEG Urine Glucose (UA) 100 H Urine Ketones 5 Urine Blood NEG Urine Nitrite NEG Ur Leukocyte Esterase NEG Urine Osmolality Ur Random Sodium Ur Random Chloride Ethyl Alcohol COVID-19 (JEAN) COVID-19 Clin Com Blood Type Antibody Screen 06/24/21 06/24/21 06/24/21 00:34 00:34 02:50 WBC RBC Hgb Hct MCV MCH MCHC RDW Plt Count MPV Immature Gran % (Auto) Neut % (Auto) Lymph % (Auto) [place] % (Auto) Eos % (Auto) Baso % (Auto) Lymph # (Auto) [place] # (Auto) Eos # (Auto) Baso # (Auto) Abs Immat Gran (auto) Absolute Neuts (auto) Absolute Nucleated RBC Nucleated RBC % (auto) Smear Tech's Comments PT INR APTT Sodium Potassium Chloride Carbon Dioxide Anion Gap BUN Creatinine Estim Creat Clear Calc Estimated GFR Random Glucose Osmolality Lactic Acid Lactic Acid Fup @ 2Hr Lactic Acid Fup @ 4Hr 3.6 H* Calcium Magnesium Total Bilirubin AST ALT Alkaline Phosphatase Ammonia Total Protein Albumin Lipase Urine Color Urine Appearance Urine pH Ur Specific [place] Urine Protein Urine Glucose (UA) Urine Ketones Urine Blood Urine Nitrite Ur Leukocyte Esterase Urine Osmolality 369 L Ur Random Sodium < 20.0 Ur Random Chloride < 20.0 Ethyl Alcohol COVID-19 (JEAN) COVID-19 [facility] Blood Type Antibody Screen 06/24/21 06/24/21 05:15 05:15 WBC 19.0 H RBC 3.50 L Hgb 12.5 L Hct 33.0 L MCV 94.3 MCH 35.7 H MCHC 37.9 H RDW 16.3 H Plt Count 90 L MPV 11.1 Immature Gran % (Auto) 0.5 H Neut % (Auto) 85.8 H Lymph % (Auto) 6.3 L [place] % (Auto) 7.4 Eos % (Auto) 0.0 Baso % (Auto) 0.0 Lymph # (Auto) 0.2 L [place] # (Auto) 0.3 Eos # (Auto) 0.0 Baso # (Auto) 0.0 Abs Immat Gran (auto) 0.02 Absolute Neuts (auto) 3.3 Absolute Nucleated RBC 0.000 Nucleated RBC % (auto) 0.0 Smear Tech's Comments VERIFIED PT INR APTT Sodium 121 L Potassium 3.4 Chloride 76 L Carbon Dioxide 33 H Anion Gap 15 BUN 3 L Creatinine 0.46 L Estim Creat Clear Calc 260.5 Estimated GFR > 60 Random Glucose 125 H Osmolality Lactic Acid Lactic Acid Fup @ 2Hr Lactic Acid Fup @ 4Hr Calcium 7.4 L Magnesium 1.9 Total Bilirubin 7.0 H AST 189 H ALT 70 H Alkaline Phosphatase 256 H Ammonia Total Protein 5.9 L Albumin 2.1 L Lipase Urine Color Urine Appearance Urine pH Ur Specific [place] Urine Protein Urine Glucose (UA) Urine Ketones Urine Blood Urine Nitrite Ur Leukocyte Esterase Urine Osmolality Ur Random Sodium Ur Random Chloride Ethyl Alcohol COVID-19 (JEAN) COVID-19 Clin Com Blood Type Antibody Screen Quality Stroke Does the patient have a stroke diagnosis?: No VTE Prior VTE?: No VTE Risk Level:: Medical - moderate - high VTE Device Contraindication: Treatment Not Indicated VTE Drug Contraindication: N/A - Med Ordered Progress Note: A&P Assessment and plan (1) COVID-19: Status: Acute (2) Thrombocytopenia: Status: Acute (3) Colitis: Status: Acute (4) Acute alcoholic hepatitis: Status: Acute (5) Alcoholic ketoacidosis: Status: Acute (6) Alcoholic cirrhosis of liver: Status: Acute (7) Portal hypertension: Status: Acute (8) Portal hypertensive gastropathy: Status: Acute (9) Pancreatitis: Status: Acute (10) Alcohol abuse with withdrawal: Status: Acute (11) Acute upper GI bleeding: Status: Acute (12) Alcohol abuse: Status: Acute (13) Acute hypokalemia: Status: Acute (14) Acute hyponatremia: Status: Acute (15) Hypomagnesemia: Status: Acute Assessment and Plan: I believe that this patient's presentation was more indicative of volume depletion from alcohol intoxication and secondary effects and I do not believe that this was sepsis outside of a CT scan image implying add diffuse mucosal thickening of the colon although this patient really had no manifestations of abdominal pain no diarrhea therapy revolved around continued normal saline as well as potassium chloride repletion and follow mental status and and with WA protocol treating with phenobarbital
[2021-06-24] MEDS: KCl 40 mEq in 0.9 % Sodium Chl 40 MEQ/1,000 ML IV.SOLN 100 MEQ IVCONT (12:13)
[2021-06-24] MEDS: Enoxaparin Sodium 80 MG/0.8 ML SYRINGE SUBCUT (12:43)
--- NOTE | 2021-06-24 13:20 | PM.EVENT ---
Event Note Date of Service: 06/24/21 Event Note: 35-year-old male with chronic alcohol abuse with evidence of hepatic insufficiency due to so alcoholic cirrhosis as well as portal hypertension with secondary gastropathy and chronic intestinal manifestations who comes in with acute alcohol intoxication with alcoholic hepatitis and gastropathy as well as alcoholic ketoacidosis and hypovolemia with marked circulatory contraction and secondary lactic acidosis initially presents with positive anion gap metabolic acidosis with confirmed covid 19 in the ED. Transfered from ICU. He was initially admitted with hyponatremia of 114 and found to have multiple other issues. Covid 19. No clear consolidation on CT. Requiring NRB Check inflammatory markers add decadron Acute hypoxic resp failure with Hypoxia, dry CT neg for consolidation ? secondary to covid vs PE vs cardiac abnormality CTA or VQ scan (abd CT with contrast less than 24hrs ago), echo pending On nonreabreather Check BNP Alcoholic ketoacidosis. Secondary to alcohol use, poor dietary intake Enourage po intake add ensure to diet Alcohol abuse Phenobarb protocol thiamine, folic acid, multivitamin Hyponatremia. initially 114 trending up with IV fluids Nephrology consultation avoid rapid over correction Hypokalemia. secondary to Nausea and vomiting Repleted trend Cirrhosis/portal htn. Secondary to alcohol abuse Small to moderate ascites GI consult ? colitis diffuse mucosal thickening of the colon on abd CT Continue Zosyn for now GI consult Attending Dr. Bah
--- NOTE | 2021-06-24 15:47 | PM.PNNEP ---
Subjective Subjective Date of Service: 06/24/21 Interval history: Patient seen and examined Consult dictated Physical Exam Vital Signs: Vital Signs: Last Vital Signs Temp 98.6 F 06/24/21 15:00 Pulse 128 H 06/24/21 15:00 Resp 21 H 06/24/21 15:00 BP 142/100 H 06/24/21 15:00 Pulse Ox 97 06/24/21 15:00 Oxygen Flow Rate 2 06/23/21 22:26 Body Mass Index 24.2 Objective Data Labs CBC & Chem 7: 06/24/21 05:15 06/24/21 05:15 Labs: Laboratory Results - last 24 hr 06/23/21 06/23/21 06/23/21 20:21 20:21 20:21 WBC 16.3 H RBC 3.80 L Hgb 13.7 L Hct 35.5 L MCV 93.4 MCH 36.1 H MCHC 38.6 H RDW 15.9 Plt Count 110 L MPV 10.8 Immature Gran % (Auto) 0.6 H Neut % (Auto) 88.9 H Lymph % (Auto) 3.8 L [place] % (Auto) 6.4 Eos % (Auto) 0.1 Baso % (Auto) 0.2 Lymph # (Auto) 0.6 L [place] # (Auto) 1.1 Eos # (Auto) 0.0 Baso # (Auto) 0.0 Abs Immat Gran (auto) 0.09 H Absolute Neuts (auto) 14.5 H Absolute Nucleated RBC 0.000 Nucleated RBC % (auto) 0.0 Smear Tech's Comments VERIFIED PT INR APTT Sodium 114 L* Potassium 2.3 L* D Chloride 65 L D Carbon Dioxide 29 Anion Gap 22 H BUN 4 L D Creatinine 0.61 Estim Creat Clear Calc 195.1 Estimated GFR > 60 Random Glucose 193 H D Osmolality 272 L Lactic Acid Lactic Acid Fup @ 2Hr Lactic Acid Fup @ 4Hr Calcium 8.0 L Magnesium 1.4 L* Total Bilirubin 7.6 H AST 238 H ALT 89 H Alkaline Phosphatase 317 H D Ammonia Total Protein 6.9 Albumin 2.6 L D Lipase 7 L Urine Color Urine Appearance Urine pH Ur Specific [place] Urine Protein Urine Glucose (UA) Urine Ketones Urine Blood Urine Nitrite Ur Leukocyte Esterase Urine Osmolality Ur Random Sodium Ur Random Chloride Ethyl Alcohol COVID-19 (JEAN) COVID-19 Clin Com Blood Type Antibody Screen 06/23/21 06/23/21 06/23/21 21:20 21:20 21:20 WBC RBC Hgb Hct MCV MCH MCHC RDW Plt Count MPV Immature Gran % (Auto) Neut % (Auto) Lymph % (Auto) [place] % (Auto) Eos % (Auto) Baso % (Auto) Lymph # (Auto) [place] # (Auto) Eos # (Auto) Baso # (Auto) Abs Immat Gran (auto) Absolute Neuts (auto) Absolute Nucleated RBC Nucleated RBC % (auto) Smear Tech's Comments PT 16.9 H INR 1.5 H APTT 45.0 H Sodium Potassium Chloride Carbon Dioxide Anion Gap BUN Creatinine Estim Creat Clear Calc Estimated GFR Random Glucose Osmolality Lactic Acid Lactic Acid Fup @ 2Hr Lactic Acid Fup @ 4Hr Calcium Magnesium Total Bilirubin AST ALT Alkaline Phosphatase Ammonia 40 Total Protein Albumin Lipase Urine Color Urine Appearance Urine pH Ur Specific [place] Urine Protein Urine Glucose (UA) Urine Ketones Urine Blood Urine Nitrite Ur Leukocyte Esterase Urine Osmolality Ur Random Sodium Ur Random Chloride Ethyl Alcohol 119 COVID-19 (JEAN) [facility] Blood Type Antibody Screen 06/23/21 06/23/21 06/23/21 21:22 21:29 21:33 WBC RBC Hgb Hct MCV MCH MCHC RDW Plt Count MPV Immature Gran % (Auto) Neut % (Auto) Lymph % (Auto) [place] % (Auto) Eos % (Auto) Baso % (Auto) Lymph # (Auto) [place] # (Auto) Eos # (Auto) Baso # (Auto) Abs Immat Gran (auto) Absolute Neuts (auto) Absolute Nucleated RBC Nucleated RBC % (auto) Smear Tech's Comments PT INR APTT Sodium Potassium Chloride Carbon Dioxide Anion Gap BUN Creatinine Estim Creat Clear Calc Estimated GFR Random Glucose Osmolality Lactic Acid 10.3 H* Lactic Acid Fup @ 2Hr Lactic Acid Fup @ 4Hr Calcium Magnesium Total Bilirubin AST ALT Alkaline Phosphatase Ammonia Total Protein Albumin Lipase Urine Color Urine Appearance Urine pH Ur Specific [place] Urine Protein Urine Glucose (UA) Urine Ketones Urine Blood Urine Nitrite Ur Leukocyte Esterase Urine Osmolality Ur Random Sodium Ur Random Chloride Ethyl Alcohol COVID-19 (JEAN) Positive A [facility] See Note Blood Type A Positive Antibody Screen NEGATIVE 06/24/21 06/24/21 06/24/21 00:34 00:34 00:34 WBC RBC Hgb Hct MCV MCH MCHC RDW Plt Count MPV Immature Gran % (Auto) Neut % (Auto) Lymph % (Auto) [place] % (Auto) Eos % (Auto) Baso % (Auto) Lymph # (Auto) [place] # (Auto) Eos # (Auto) Baso # (Auto) Abs Immat Gran (auto) Absolute Neuts (auto) Absolute Nucleated RBC Nucleated RBC % (auto) Smear Tech's Comments PT INR APTT Sodium 116 L* Potassium 3.1 L D Chloride 73 L Carbon Dioxide 28 Anion Gap 18 BUN 3 L Creatinine 0.49 L Estim Creat Clear Calc 242.9 Estimated GFR > 60 Random Glucose 138 H Osmolality Lactic Acid Lactic Acid Fup @ 2Hr 5.5 H* Lactic Acid Fup @ 4Hr Calcium 7.2 L D Magnesium Total Bilirubin AST ALT Alkaline Phosphatase Ammonia Total Protein Albumin Lipase Urine Color YELLOW Urine Appearance CLEAR Urine pH 5.5 Ur Specific [place] 1.025 Urine Protein NEG Urine Glucose (UA) 100 H Urine Ketones 5 Urine Blood NEG Urine Nitrite NEG Ur Leukocyte Esterase NEG Urine Osmolality Ur Random Sodium Ur Random Chloride Ethyl Alcohol COVID-19 (JEAN) [facility] Blood Type Antibody Screen 06/24/21 06/24/21 06/24/21 00:34 00:34 02:50 WBC RBC Hgb Hct MCV MCH MCHC RDW Plt Count MPV Immature Gran % (Auto) Neut % (Auto) Lymph % (Auto) [place] % (Auto) Eos % (Auto) Baso % (Auto) Lymph # (Auto) [place] # (Auto) Eos # (Auto) Baso # (Auto) Abs Immat Gran (auto) Absolute Neuts (auto) Absolute Nucleated RBC Nucleated RBC % (auto) Smear Tech's Comments PT INR APTT Sodium Potassium Chloride Carbon Dioxide Anion Gap BUN Creatinine Estim Creat Clear Calc Estimated GFR Random Glucose Osmolality Lactic Acid Lactic Acid Fup @ 2Hr Lactic Acid Fup @ 4Hr 3.6 H* Calcium Magnesium Total Bilirubin AST ALT Alkaline Phosphatase Ammonia Total Protein Albumin Lipase Urine Color Urine Appearance Urine pH Ur Specific [place] Urine Protein Urine Glucose (UA) Urine Ketones Urine Blood Urine Nitrite Ur Leukocyte Esterase Urine Osmolality 369 L Ur Random Sodium < 20.0 Ur Random Chloride < 20.0 Ethyl Alcohol COVID-19 (JEAN) [facility] Blood Type Antibody Screen 06/24/21 06/24/21 05:15 05:15 WBC 19.0 H RBC 3.50 L Hgb 12.5 L Hct 33.0 L MCV 94.3 MCH 35.7 H MCHC 37.9 H RDW 16.3 H Plt Count 90 L MPV 11.1 Immature Gran % (Auto) 0.5 H Neut % (Auto) 85.8 H Lymph % (Auto) 6.3 L [place] % (Auto) 7.4 Eos % (Auto) 0.0 Baso % (Auto) 0.0 Lymph # (Auto) 0.2 L [place] # (Auto) 0.3 Eos # (Auto) 0.0 Baso # (Auto) 0.0 Abs Immat Gran (auto) 0.02 Absolute Neuts (auto) 3.3 Absolute Nucleated RBC 0.000 Nucleated RBC % (auto) 0.0 Smear Tech's Comments VERIFIED PT INR APTT Sodium 121 L Potassium 3.4 Chloride 76 L Carbon Dioxide 33 H Anion Gap 15 BUN 3 L Creatinine 0.46 L Estim Creat Clear Calc 260.5 Estimated GFR > 60 Random Glucose 125 H Osmolality Lactic Acid Lactic Acid Fup @ 2Hr Lactic Acid Fup @ 4Hr Calcium 7.4 L Magnesium 1.9 Total Bilirubin 7.0 H AST 189 H ALT 70 H Alkaline Phosphatase 256 H Ammonia Total Protein 5.9 L Albumin 2.1 L Lipase Urine Color Urine Appearance Urine pH Ur Specific [place] Urine Protein Urine Glucose (UA) Urine Ketones Urine Blood Urine Nitrite Ur Leukocyte Esterase Urine Osmolality Ur Random Sodium Ur Random Chloride Ethyl Alcohol COVID-19 (JEAN) COVID-19 Clin Com Blood Type Antibody Screen Procedures Date of Service Date of Service: 06/24/21 Assessment & Plan Assessment and plan (1) Hyponatremia: Status: Acute (2) Alcoholic cirrhosis of liver: Status: Acute Assessment and Plan: hypotonic hyponatremia against the backdrop of ETOH liver cirrhosis multifactorial -hypovolemia -poor solute excretion -hepatic physiology avoid rapid correction more than 6-8 meq in 24 hour in alcoholic patient due to high risk REC discontinue NS 1/2 NS preferred for volume resuscitation check sodium q4 hours goal Sna < 122 by 8 pm (presented with Sna 114 yesterday) follow kidney function and electrolytes Time Spent With Patient Time: Total time spent is greater than 50% in coordination of care (as documented) at patient's floor/unit and/or counseling patient: Progress Note: Quality Stroke Does the patient have a stroke diagnosis?: No
--- NOTE | 2021-06-24 16:00 | MHC.CM.PN ---
Pt in ICU with + COVID, hyponatremia and ETOH w/d. He is somewhat lethargic and unable to participate in CM assessment: Information obtained from EMR, ICU staff. Call placed to pt's next of kin/spouse Eri: message left for callback to assist with assessment and d/c plan: Pt appears to have been independent at baseline without services. Hx of ETOH abuse: ? past treatment. Will await call back from Eri or improvement in pt's mental status to complete CM d/c plan
[2021-06-24 16:22] LABS: Lactic Acid 1.8 mmol/L (0.5-2.0)
[2021-06-24 16:28] LABS: Lactate Dehydrogenase 209 U/L (118-273)
[2021-06-24 16:29] LABS: Anion Gap 15 (12-20); Blood Urea Nitrogen 3 mg/dL (9-16); Calcium 7.6 mg/dL (8.4-10.2); Carbon Dioxide 34 mmol/L (22-29); Chloride 80 mmol/L (96-108); Estimated Glomerular Filt Rate > 60; Glucose Random 125 mg/dL (60-115); Potassium 3.8 mmol/L (3.3-5.1); Sodium 125 mmol/L (135-145)
[2021-06-24 16:33] LABS: B Type Natriuretic Peptide 66 pg/mL (<100)
[2021-06-24] MEDS: dexAMETHasone sod phosphate 4 MG/ML VIAL 6 MG IVPUSH (16:53)
[2021-06-24 17:32] LABS: Ferritin 3447 ng/mL (20-250)
[2021-06-24 17:43] LABS: D Dimer 945 NG/ML
[2021-06-24] MEDS: PHENobarbitaL sodium 65 MG/ML VIAL IVPUSH (18:06)
[2021-06-24] MEDS: KCl 20 mEq in 0.45% Sod 20 MEQ/1,000 ML IV.SOLN 80 MEQ IVCONT (18:06)
[2021-06-25] VITALS (10 sets, daily range): BP systolic 126–148; BP diastolic 72–100; PULSE 80–150; RESP 18–22; TEMP 36.4–36.9; O2SAT 90–99; BMI 23.5
--- NOTE | 2021-06-25 | ECG_ITS ---
Test Reason : tachycardia Blood Pressure : / mmHG Vent. Rate : 118 BPM Atrial Rate : 118 BPM P-R Int : 126 ms QRS Dur : 084 ms QT Int : 346 ms P-R-T Axes : 045 010 012 degrees QTc Int : 484 ms Sinus tachycardia Otherwise normal ECG When compared with ECG of 24-JUN-2021 08:29, No significant change was found Referred By: Dayne Maria Electronically Signed By:MICHEAL SALINAS
[2021-06-25] MEDS: Piperacillin Sodium/Tazobactam 4.5 GM in 0.9 % Sodium Chloride 100 ML IV ×5 (00:06→23:55)
[2021-06-25 00:44] LABS: Anion Gap 10 (12-20); Blood Urea Nitrogen 4 mg/dL (9-16); Calcium 7.7 mg/dL (8.4-10.2); Carbon Dioxide 36 mmol/L (22-29); Chloride 82 mmol/L (96-108); Estimated Glomerular Filt Rate > 60; Glucose Random 143 mg/dL (60-115); Potassium 3.7 mmol/L (3.3-5.1); Sodium 124 mmol/L (135-145)
[2021-06-25] MEDS: Morphine Sulfate 2 MG/ML CARTRIDGE IVPUSH (05:13)
[2021-06-25 07:14] LABS: Hemoglobin 9.7 g/dl (14.0-18.0); PLT CLUMP 1
[2021-06-25 07:15] LABS: Hematocrit 26.7 % (42-52); Mean Corpuscular HGB Conc 36.3 g/dl (31.0-36.0); Mean Corpuscular Hemoglobin 36.5 pg (27.0-33.0); Mean Platelet Volume 10.9 fL (9.4-12.4); Red Blood Count 2.66 X10*6/uL (4.60-5.80); Red Cell Distribution Width 17.2 % (11.0-16.0); White Blood Count 8.9 X10*3/uL (4.8-10.8)
[2021-06-25 07:28] LABS: Mean Corpuscular Volume 100.4 fL (80-98); Platelet Count 71 X10*3/uL (160-400)
[2021-06-25 07:42] LABS: Alanine Aminotransferase 54 U/L (0-40); Albumin Level 1.9 g/dL (3.5-5.0); Alkaline Phosphatase 196 U/L (39-117); Anion Gap 11 (12-20); Aspartate Amino Transferase 131 U/L (5-37); Bilirubin Direct 4.9 mg/dL (0.0-0.5); Bilirubin Total 7.8 mg/dL (0.0-1.0); Blood Urea Nitrogen 6 mg/dL (9-16); Calcium 7.7 mg/dL (8.4-10.2); Carbon Dioxide 35 mmol/L (22-29); Chloride 83 mmol/L (96-108); Creatinine Clr Calc Pharmacy 260.5; Estimated Glomerular Filt Rate > 60; Glucose Random 111 mg/dL (60-115); Potassium 3.7 mmol/L (3.3-5.1); Sodium 125 mmol/L (135-145); Total Protein 5.1 g/dL (6.5-8.0)
[2021-06-25] MEDS: dexAMETHasone sod phosphate 4 MG/ML VIAL 6 MG IVPUSH (09:03)
[2021-06-25] MEDS: KCl 20 mEq in 0.45% Sod 20 MEQ/1,000 ML IV.SOLN 80 MEQ IVCONT ×2 (09:03→23:53)
[2021-06-25] MEDS: Folic Acid 1 MG TABLET PO (09:03)
[2021-06-25] MEDS: Multivitamin TABLET 1 TAB PO (09:03)
[2021-06-25] MEDS: PHENobarbitaL sodium 65 MG/ML VIAL IM (09:03)
[2021-06-25] MEDS: Thiamine HCL 100 MG TABLET PO (09:03)
--- NOTE | 2021-06-25 10:30 | CA_ITS ---
Transthoracic Echocardiogram Patient (Last, First, Middle): Felix Gregory, Gender: Male Date of : 1985 Age: 35 Procedure Date: 06/25/2021 Procedure Type: Transthoracic Echocardiogram Location: [facility] Height: 187.96 cm Weight: 82.56 kg BSA: 2.09 m2 Heart Rate: bpm BP: 147 / 99 mmHg Hospice Home Care Coordinator: ZAYDA Singh MD: Sandra Valdez MD Symptoms: needs bubbles to r/o PFO with shunt--pt. hypoxic Study Quality: Fair Conclusions: - Normal left ventricular size, thickness, systolic function, and wall motion. - Normal right ventricular cavity size and systolic function. - There is no evidence of interatrial shunt by contrast. - Aortic valve is likely bicuspid. - There is moderate dilatation of the sinuses of Valsalva. Findings Left Ventricle Normal left ventricular size, thickness, systolic function, and wall motion. The visually estimated ejection fraction is between 55-60%. Diastolic function is normal for age. Right Ventricle Normal right ventricular cavity size and systolic function. Atria Both atria are normal in size. There is no evidence of interatrial shunt by contrast. Aortic Valve There is no aortic valve stenosis. There is no aortic valve regurgitation. Aortic valve is likely bicuspid. Mitral Valve Normal mitral valve structure and function. There is no mitral valve regurgitation. There is no mitral valve stenosis. Pulmonic Valve Normal pulmonic valve structure and function. There is no pulmonic valve regurgitation. Tricuspid Valve Normal tricuspid valve structure and function. There is trace tricuspid valve regurgitation. Tricuspid regurgitation envelope is inadequate for calculation of right ventricular systolic pressure. Indeterminate right atrial pressure. Great Vessels There is moderate dilatation of the sinuses of Valsalva. The visualized portions of the pulmonary artery and branches are normal. Venous The inferior vena cava was not well visualized. Pericardium/Pleural There is no evidence of pericardial effusion. Prior Study Comparison No prior study available for comparison. Measurements 2D Linear Measurements IVSd: 1.04 0.6-0.9/0.6-1.0 cm LVIDd: 4.18 3.9-5.3/4.2-5.9 cm LVIDd Index: 2.00 2.4-3.2/2.2-3.1 cm/m2 LVIDs: 2.90 2.0-3.6 cm LVPWd: 1.02 0.7-1.1 cm Ao Root: 4.90 2.1-3.5 cm LA Diam: 3.30 2.7-3.8/3.0-4.0 cm LAIDs Index: 1.58 1.5-2.3 cm/m2 LV Mass: 176.73 67-162/88-224 g LV Mass Index: 84.56 43-95/49-115 g/m2 LVOT Diam: 2.20 3.0+(-)1.3 cm Mitral Valve MV Pk E: 0.68 MV PK A: 0.78 MV Decel Time: 126.00 E/A: 0.90 E'Lateral: 16.30 E'Medial: 12.20 E/E' Med: 5.60 E/E' Lat: 4.20 PHT: 37.00 MVA PHT: 5.95 Decel [place]: 5.42 Aortic Valve AoV Pk Ernesto: 1.25 AoV Mn Ernesto: 0.87 AoV VTI: 0.19 AoV Pk Grad: 6.00 Aov Mn Grad: 3.00 GIDEON Cont.VTI: 3.09 LVOT LVOT Pk Ernesto: 0.91 LVOT Mn Ernesto: 0.57 LVOT VTI: 0.16 LVOT Pk Grad: 3.00 LVOT Mn Grad: 2.00 LVOT Diam: 2.20 LVOT Area: 3.80 Diastolic Function MV Pk E: 0.68 MV Pk A: 0.78 E/A: 0.90 E'Medial: 12.20 E/E' Med: 5.60 E' Laterial: 16.30 E/E' Lat: 4.20 Right Ventricle TAPSE (mm): 1.91 TVS' Ernesto: 20.60 Tricuspid Valve TR Pk Ernesto: 2.40 TR Pk Grad: 23.00 Great Vessels Aorta Ao Root-2D: 4.90 2.0-3.7 cm Sinus of Valsalva: 4.90 2.0-3.5 cm Ao Asc: 3.30 2.1-3.4 cm Updated in Other Vendor System with Status of Final Grant Chandler MD electronically signed on 06/25/2021 2:56:13 PM with status of Final
--- NOTE | 2021-06-25 11:44 | PM.PNNEP ---
Subjective Subjective Date of Service: 06/25/21 Interval history: seen and examined discussed with medical attending Physical Exam Vital Signs: Vital Signs: Last Vital Signs Temp 97.9 F 06/25/21 11:31 Pulse 108 H 06/25/21 11:31 Resp 18 06/25/21 11:31 BP 148/92 H 06/25/21 11:31 Pulse Ox 90 L 06/25/21 11:31 Oxygen Flow Rate 2 06/23/21 22:26 Body Mass Index 23.5 Const: General: no acute distress HENMT: Head: Yes normocephalic and Yes atraumatic Neck: Neck: Yes supple Resp: Auscultation: diminished lung sounds Cardio: Heart sounds: S1 normal heart sound present and S2 normal heart sound present GI: Palpation (GI): Soft to palpation and no guarding Extrem: General: No edema Objective Data Labs CBC & Chem 7: 06/25/21 06:19 06/25/21 06:19 Labs: Laboratory Results - last 24 hr 06/24/21 06/24/21 06/24/21 15:55 15:55 15:55 WBC RBC Hgb Hct MCV MCH MCHC RDW Plt Count MPV Absolute Nucleated RBC Nucleated RBC % (auto) D-Dimer Sodium 125 L Potassium 3.8 Chloride 80 L Carbon Dioxide 34 H Anion Gap 15 BUN 3 L Creatinine 0.47 L Estim Creat Clear Calc 255.0 Estimated GFR > 60 Random Glucose 125 H Lactic Acid 1.8 Calcium 7.6 L Ferritin Total Bilirubin Direct Bilirubin AST ALT Alkaline Phosphatase Lactate Dehydrogenase B-Natriuretic Peptide 66 Total Protein Albumin 06/24/21 06/24/21 06/25/21 15:55 15:55 00:18 WBC RBC Hgb Hct MCV MCH MCHC RDW Plt Count MPV Absolute Nucleated RBC Nucleated RBC % (auto) D-Dimer 945 Sodium 124 L Potassium 3.7 Chloride 82 L Carbon Dioxide 36 H Anion Gap 10 L BUN 4 L Creatinine 0.47 L Estim Creat Clear Calc 255.0 Estimated GFR > 60 Random Glucose 143 H Lactic Acid Calcium 7.7 L Ferritin 3447 H Total Bilirubin Direct Bilirubin AST ALT Alkaline Phosphatase Lactate Dehydrogenase 209 B-Natriuretic Peptide Total Protein Albumin 06/25/21 06/25/21 06:19 06:19 WBC 8.9 RBC 2.66 L D Hgb 9.7 L D Hct 26.7 L MCV 100.4 H D MCH 36.5 H MCHC 36.3 H RDW 17.2 H Plt Count 71 L MPV 10.9 Absolute Nucleated RBC 0.000 Nucleated RBC % (auto) 0.0 D-Dimer Sodium 125 L Potassium 3.7 Chloride 83 L Carbon Dioxide 35 H Anion Gap 11 L BUN 6 L Creatinine 0.46 L Estim Creat Clear Calc 260.5 Estimated GFR > 60 Random Glucose 111 Lactic Acid Calcium 7.7 L Ferritin Total Bilirubin 7.8 H Direct Bilirubin 4.9 H AST 131 H ALT 54 H Alkaline Phosphatase 196 H D Lactate Dehydrogenase B-Natriuretic Peptide Total Protein 5.1 L Albumin 1.9 L Microbiology Microbiology Results: Microbiology 06/23/21 21:31 Blood - Venous Blood Culture - Preliminary No growth after 24 hours. 06/23/21 21:31 Blood - Venous Blood Culture - Preliminary No growth after 24 hours. Procedures Date of Service Date of Service: 06/25/21 Assessment & Plan Assessment and plan (1) Hyponatremia: Status: Acute (2) Alcoholic cirrhosis of liver: Status: Acute Assessment and Plan: Sna improving at reasonable pace hypotonic hyponatremia against the backdrop of ETOH liver cirrhosis multifactorial -hypovolemia -poor solute excretion -hepatic physiology avoid rapid correction more than 6-8 meq in 24 hour in alcoholic patient due to high risk of pontine demyelinosis REC isotonic fluid check sodium q4 hours goal serum sodium < 128 by 8 pm follow kidney function and electrolytes Time Spent With Patient Time: Total time spent is greater than 50% in coordination of care (as documented) at patient's floor/unit and/or counseling patient: Progress Note: Quality Stroke Does the patient have a stroke diagnosis?: No
--- NOTE | 2021-06-25 13:57 | CONS_ITS ---
DATE OF SERVICE: 06/24/2021 HISTORY OF PRESENT ILLNESS: I was asked to assist in the management of this 35-year-old patient who has a history of alcohol abuse, presents to the hospital with generalized weakness. He is noted to have a low serum sodium. In summary, the patient was at [facility] last week and was diagnosed with COVID-19, but left against medical advice. He complains of vomiting, decreased oral intake, weakness, and he has been drinking alcohol on a daily basis. He denies any chest pain. He is currently being treated for acute respiratory failure and he is on a non-rebreather. The patient was also being treated for alcoholic hepatitis with alcoholic ketoacidosis and was started on IV fluid. PAST MEDICAL HISTORY: Remarkable for history of alcohol abuse, pancreatitis, alcoholic cirrhosis, portal hypertension. CURRENT MEDICATIONS: Include phenobarbital, dexamethasone, thiamine, folic acid, multivitamin, Zosyn, normal saline with potassium chloride. ALLERGIES: TO CODEINE, TRAMADOL, LIBRIUM. SOCIAL HISTORY: History of alcohol abuse. FAMILY HISTORY: Negative for kidney disease. REVIEW OF SYSTEMS: Ten-point review of systems negative, except for pertinent in the history of present illness. PHYSICAL EXAMINATION: VITAL SIGNS: Blood pressure 142/100, heart rate 128, respiratory rate 21, temperature 98.7. CONSTITUTIONAL: Looks ill, in no acute distress. HEAD: Atraumatic, normocephalic. NECK: Supple. LUNGS: Decreased breath sounds. CARDIOVASCULAR: S1, S2. Tachy. ABDOMEN: Soft, nontender, distended. EXTREMITIES: With no peripheral edema. LABS: Sodium 121, potassium 3.4, chloride 76, CO2 33, BUN 3, creatinine 0.46. Lactic acid 10.3, total bilirubin 7. Serum osmolality 272. Urine sodium less than 20. Urine osmolality 369. IMPRESSION: 1. Hyponatremia. 2. Alcoholic cirrhosis. This is a patient with hyponatremia in the setting of alcoholic cirrhosis, who presented with serum sodium of 114. He has hypotonic hyponatremia, which is multifactorial due to a component of hypovolemia and a poor solid excretion combined with hepatic physiology. I would avoid rapid correction of serum sodium in alcoholic patient and would aim to add no more than 6 mEq to 8 mEq of correction in 24 hours. I would closely follow his serum sodium q.4 hours and discontinue normal saline and change his IV fluids to half-normal saline should he require further fluid administration for volume support. Continue to follow closely his kidney function and electrolytes along with the medical team. Thank you for allowing me to participate in the care of this patient. Ginger Matta MD GF/MODL / [id number]
--- NOTE | 2021-06-25 14:10 | HO.PM.IMPN ---
Subjective Subjective Date of Service: 06/25/21 Interval History: Somnolent but arousable on phenobarb protocol. No signs of acute withdrawal. Sats maintained with nasal oxygen Review of Systems Denies chest pain Denies shortness of breath Denies nausea vomiting diarrhea Physical Exam Vital Signs: Vital Signs: Last Vital Signs Temp 97.9 F 06/25/21 11:31 Pulse 108 H 06/25/21 11:31 Resp 18 06/25/21 11:31 BP 148/92 H 06/25/21 11:31 Pulse Ox 90 L 06/25/21 11:31 Oxygen Flow Rate 2 06/23/21 22:26 Body Mass Index 23.5 Const: Other: Somnolent but arousable. No acute distress. Able to lie flat on back and speak in full sentences HENMT: Other: Membranes slightly Resp: Other: Clear all [place] without rales rhonchi or wheezes. Normal respiratory effort. Cardio: Other: No S4; positive S1-S2; no S3 without murmurs rubs or gallops GI: Other: Is soft, minimally tender midepigastrium without rebound. Bowel sounds x4 quadrants Neuro: Other: Age-appropriate nonfocal Extrem: Other: No edema bilaterally Objective Data Active Medications Dexamethasone Sodium Phosphate (Dexamethasone Sod Phosphate 4 Mg/Ml Vial) 6 mg IVPUSH DAILY [facility] Last Admin: 06/25/21 09:03 Dose: 6 mg Documented by: HOLLY Folic Acid (Folic Acid 1 Mg Tablet) 1 mg PO DAILY [facility] Last Admin: 06/25/21 09:03 Dose: 1 mg Documented by: HOLLY Piperacillin Sod/Tazobactam (Sod 4.5 gm/ Sodium Chloride) 100 mls @ 200 mls/hr IV Q6H [facility] Last Infusion: 06/25/21 13:36 Dose: 0 mls/hr Documented by: NILDA Potassium Chloride/Sodium Chloride () 20 meq in 1,000 mls @ 80 mls/hr IVCONT .[id number] [facility] Last Admin: 06/25/21 09:03 Dose: 80 mls/hr Documented by: HOLLY Medication (No Benzodiazepines) 1 each MISCELLANE DAILY [facility] Multivitamins/Vitamin C (Multivitamin Tablet) 1 tab PO DAILY [facility] Last Admin: 06/25/21 09:03 Dose: 1 tab Documented by: HOLLY Phenobarbital (Phenobarbital 30 Mg Tablet) 60 mg PO BEDTIME ONE Stop: 06/25/21 21:01 Phenobarbital (Phenobarbital 30 Mg Tablet) 30 mg PO BID KIRSTEN; Protocol Stop: 06/27/21 21:01 Phenobarbital (Phenobarbital 30 Mg Tablet) 30 mg PO DAILY KIRSTEN; Protocol Stop: 06/29/21 09:01 Thiamine HCl (Thiamine Hcl 100 Mg Tablet) 100 mg PO DAILY KIRSTEN Last Admin: 06/25/21 09:03 Dose: 100 mg Documented by: HOLLY Labs CBC & Chem 7: 06/25/21 06:19 06/25/21 06:19 Labs: Laboratory Results - last 24 hr 06/24/21 06/24/21 06/24/21 15:55 15:55 15:55 MCV MCH MCHC RDW Plt Count MPV Absolute Nucleated RBC Nucleated RBC % (auto) D-Dimer Anion Gap 15 Estim Creat Clear Calc 255.0 Estimated GFR > 60 Random Glucose 125 H Lactic Acid 1.8 Calcium 7.6 L Ferritin Total Bilirubin Direct Bilirubin AST ALT Alkaline Phosphatase Lactate Dehydrogenase B-Natriuretic Peptide 66 Total Protein Albumin 06/24/21 06/24/21 06/25/21 15:55 15:55 00:18 MCV MCH MCHC RDW Plt Count MPV Absolute Nucleated RBC Nucleated RBC % (auto) D-Dimer 945 Anion Gap 10 L Estim Creat Clear Calc 255.0 Estimated GFR > 60 Random Glucose 143 H Lactic Acid Calcium 7.7 L Ferritin 3447 H Total Bilirubin Direct Bilirubin AST ALT Alkaline Phosphatase Lactate Dehydrogenase 209 B-Natriuretic Peptide Total Protein Albumin 06/25/21 06/25/21 06:19 06:19 MCV 100.4 H D MCH 36.5 H MCHC 36.3 H RDW 17.2 H Plt Count 71 L MPV 10.9 Absolute Nucleated RBC 0.000 Nucleated RBC % (auto) 0.0 D-Dimer Anion Gap 11 L Estim Creat Clear Calc 260.5 Estimated GFR > 60 Random Glucose 111 Lactic Acid Calcium 7.7 L Ferritin Total Bilirubin 7.8 H Direct Bilirubin 4.9 H AST 131 H ALT 54 H Alkaline Phosphatase 196 H D Lactate Dehydrogenase B-Natriuretic Peptide Total Protein 5.1 L Albumin 1.9 L Microbiology Microbiology Results: Microbiology 06/23/21 21:31 Blood Culture - Preliminary Blood - Venous No growth after 24 hours. 06/23/21 21:31 Blood Culture - Preliminary Blood - Venous No growth after 24 hours. Assessment and Plan (1) COVID-19: Status: Acute (2) Alcoholic ketoacidosis: Status: Acute Assessment and Plan: 35-year-old male with chronic alcohol abuse with evidence of hepatic insufficiency due to so alcoholic cirrhosis as well as portal hypertension with secondary gastropathy and chronic intestinal manifestations who comes in with acute alcohol intoxication with alcoholic hepatitis and gastropathy as well as alcoholic ketoacidosis and hypovolemia with marked circulatory contraction and secondary lactic acidosis initially presents with positive anion gap metabolic acidosis with confirmed covid 19 in the ED. Transfered from ICU. He was initially admitted with hyponatremia. 1.Covid 19: Titrated O2 to nasal cannula tolerating well Continue IV Decadron as ordered V/Q scan negative for PE 2.Alcoholic ketoacidosis: Resolve likely fluids oral intake with supplements. Follow-up clinically 3.Alcohol abuse Phenobarb protocol thiamine, folic acid, multivitamin 4.Hyponatremia: Appreciate renal input Continue IV fluids and check sodium q.4 hours with goal of 128 by this evening. 5. Hypokalemia: repleted. Follow clinically 6.Cirrhosis/portal HTN: Appreciate GI input. No indication for intervention at this time until COVID-19 stabilized 7. Colitis Continue Zosyn at this time. Switch to p.o. antibiotics when appropriate Quality Stroke Does the patient have a stroke diagnosis?: No VTE Prior VTE?: No VTE Risk Level:: Medical - moderate - high VTE Device Contraindication: Treatment Not Indicated VTE Drug Contraindication: N/A - Med Ordered
[2021-06-25] MEDS: PHENobarbitaL sodium 130 MG/ML VIAL 247 MG IM (15:33)
--- NOTE | 2021-06-25 18:11 | PM.GICN ---
History of Present Illness Data of Consult Service Date: 06/24/21 Requesting physician: Inocente Bah Primary Care Provider: Kiesha Strickland MD [facility] Reason for consult: cirrhosis and colitis ?35-year-old male with chronic alcohol abuse, opioid use, pancreatitis and seizures who I am asked to see for assessment for cirrhosis and colitis. Initially presented with multiple episodes of non bloody emesis with weaknss and malaise. He was drinking alcohol activly up till admission to the ED> He was also recently dx with covid 19 at [facility]. Denies SOB, cough, wheezing but has been confused and delirious at times. CT A/P with hepatomegaly and steatosis with small adcites and diffuse colonic thickening. He denies having a hx of liver disease or cirrhosis. Overnight his O2 requirement went to 15 L NC and he had CT chest with small infiltrates noted. VQ scan also done which was negative. Labs on admission:? WBC 16.3,? hemoglobin 13.7, hematocrit 35.5,? serum sodium 114, potassium 2.3, chloride 65, BUN 4,? osmolality 272, calcium 8, magnesium 1.4, total bilirubin 7.6, AST 238, ALT 89, alk phos 317,? lactic acid 10.3, albumin 2.6, lipase 7.? Na has been gradually improving, Review of Systems Review of Systems: Constitutional symptoms:?+ Fatigue, no fever, no chills.?? Skin symptoms:? + jaundice, no rash.?? Eye symptoms:? No discharge,?? ENMT symptoms:? No nasal congestion,?? Respiratory symptoms:? + shortness of breath,?no cough Cardiovascular symptoms:? No peripheral edema,?? Gastrointestinal symptoms:? +Abdominal pain, nausea, vomiting. no diarrhea. Genitourinary symptoms:? No hematuria,?? Musculoskeletal symptoms:? No back pain,?? Neurologic symptoms:? No dizziness,?? Psychiatric symptoms:? Substance abuse, confusion Allergy/immunologic symptoms:? No seasonal allergies,?? ? Yes all other systems are reviewed and are negative [facility] Past Medical History Medical History (Updated 06/24/21 @ 15:48 by Jose A Matta MD) Alcohol abuse with withdrawal Alcoholic cirrhosis of liver Pancreatitis Portal hypertension Portal hypertensive gastropathy Social History Social History Household Members: Significant Other Housing: Apartment Do you presently have visiting nurse or other home services: No Alcohol intake: current Alcohol intake frequency: 3 or more drinks per day Alcohol type: beer, wine and hard liquor Patient Tobacco Use Status: Current everyday Tobacco user Cigarettes Per Day: 20 Years Smoked: 29 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 Drugs, Crack/Cocaine, Heroin, Marijuana and Opiates Currently Displaying Signs/Symptoms of Drug Intoxication Withdrawal: No Advance Directives: No Advance Directives Information Provided: Yes Do you have thoughts of harming others: None Do you have a plan to hurt others: No Plan service: No Current occupational status: unemployed Meds Allergies Allergy/AdvReac Type Severity Reaction Status Date / Time codeine [CODEINE] Allergy Mild REDNESS Verified 06/23/21 20:18 tramadol [TRAMADOL] AdvReac Unknown ON EFFEXOR Verified 06/23/21 20:18 From LIBRIUM Allergy Intermediate SWELLING Uncoded 06/06/20 18:01 Active Medications: Current Medications Dexamethasone Sodium Phosphate (Dexamethasone Sod Phosphate 4 Mg/Ml Vial) 6 mg IVPUSH DAILY [facility] Last Admin: 06/24/21 16:53 Dose: 6 mg Documented by: Folic Acid (Folic Acid 1 Mg Tablet) 1 mg PO DAILY [facility] Piperacillin Sod/Tazobactam (Sod 4.5 gm/ Sodium Chloride) 100 mls @ 200 mls/hr IV Q6H [facility] Last Infusion: 06/24/21 19:29 Dose: Infused Documented by: Potassium Chloride/Sodium Chloride () 20 meq in 1,000 mls @ 80 mls/hr IVCONT .[id number] [facility] Last Admin: 06/24/21 18:06 Dose: 80 mls/hr Documented by: Medication (No Benzodiazepines) 1 each MISCELLANE DAILY [facility] Multivitamins/Vitamin C (Multivitamin Tablet) 1 tab PO DAILY [facility] Phenobarbital Sodium (Phenobarbital Sodium 65 Mg/Ml Vial) 65 mg IM TID [facility] Last Admin: 06/24/21 21:06 Dose: Not Given Documented by: Thiamine HCl (Thiamine Hcl 100 Mg Tablet) 100 mg PO DAILY [facility] Home Medications Medication Instructions Recorded Confirmed Last Taken Type No Known Home Meds 05/04/21 05/04/21 Unknown History Physical Exam Vital Signs: Vital Signs: Last Vital Signs Temp 97.9 F 06/24/21 19:00 Pulse 113 H 06/24/21 19:00 Resp 20 06/24/21 19:00 BP 141/94 H 06/24/21 19:00 Pulse Ox 96 06/24/21 19:00 Oxygen Flow Rate 2 06/23/21 22:26 Body Mass Index 24.2 General:? Alert and oriented x 3 but drowsy at times during conversation? Skin:?Mild Jaundice.? Head:? Normocephalic, atraumatic.?? Neck:? Trachea midline.? Eye:? PERRLA, Ears, nose, mouth and throat:? Oral mucosa moist.? Cardiovascular:? Regular rate and rhythm.? Normal capillary refills? Respiratory:? Respirations are non-labored.? Gastrointestinal:? Pain on palpation of the midepigastrium, LUQ.? Denies pain in the lower abdomen or right upper quadrant., Guarding: Voluntary, Rebound: Negative.?? Neurological:? Alert and oriented to person, place, time, and situation.? Psychiatric:? Cooperative.? Results Labs CBC & Chem 7: 06/25/21 06:19 06/25/21 06:19 Labs: Short CBC 06/24/21 Range/Units 05:15 WBC 19.0 H (4.8-10.8) X10*3/uL Hgb 12.5 L (14.0-18.0) g/dl Hct 33.0 L (42-52) % Plt Count 90 L (160-400) X10*3/uL BMP 06/24/21 06/24/21 06/24/21 00:34 05:15 15:55 Sodium 116 L* 121 L 125 L Potassium 3.1 L D 3.4 3.8 Chloride 73 L 76 L 80 L Carbon Dioxide 28 33 H 34 H BUN 3 L 3 L 3 L Creatinine 0.49 L 0.46 L 0.47 L Calcium 7.2 L D 7.4 L 7.6 L Liver Function 06/24/21 Range/Units 05:15 Total Bilirubin 7.0 H (0.0-1.0) mg/dL AST 189 H (5-37) U/L ALT 70 H (0-40) U/L Alkaline Phosphatase 256 H (39-117) U/L Albumin 2.1 L (3.5-5.0) g/dL Urine 06/24/21 Range/Units 00:34 Urine Color YELLOW Urine Appearance CLEAR Urine pH 5.5 (5.0-8.0) Ur Specific [place] 1.025 (1.005-1.025) Urine Protein NEG (NEG-TRACE) MG/DL Urine Glucose (UA) 100 H (NEG) MG/DL Assessment and Plan (1) COVID-19: Status: Acute (2) Colitis: Status: Acute (3) Acute alcoholic hepatitis: Status: Acute (4) Alcohol abuse: Status: Acute 1/ Alcoholic hepatitis with recent abuse of alcohol up till time of admission, unclear whether he has underlying cirrhosis too. Maddrey score around 25 indicating favorable prognosis. 2/ Suspected alcoholic gastropathy 3/ anemia 4/ covid 19 and receiving decadron 5/ hyponatremia from vomiting, alcohol abuse and poor diet 6/ colonic thickening, likely due to low albumin, and poor nutritional status, receiving zosyn in case of infectious component Right now his resp status is the most concerning given his covid 19. PLAN: 1/ Cont care for covid as doing, the steroids and abx may help his alcoholic hepatitis 2/ nutrition is the most important thing, encourage high protein diet 1.1 g/kg 3/ o/p w/u for cirrhosis incl liver serologies, and EGD if no overt bleeding 4/ pls check c diff if any diarrheal sx 5/ PPI daily in case of gastropathy 6/ Gb was pretty distended on the CT scan on personal review, if any worsening RUQ pain then HIDA to r/o cholecystitis 7/ no CI to anti coagulation given the high pro thrombotic risk of Covid, ok to give lovenox Procedures Date of Service Date of Service: 06/25/21
--- NOTE | 2021-06-25 19:52 | PC.NURSE ---
Pt very lethargic and alert to name in AM 07:00-13:00. Notifed Dr. Gomez that pt wakes for short periods of time, states abdominal pain 10/10, falls back asleep and is lethargic. Active bowel sounds, round abdomen with rebound tenderness. He does not have any prn pain meds due to current mental state. 15:00 pt became increasingly agitated, impulsive. Has frequent urge to defecate with no bowel movements or smear movements. Pt is yelling and calling out stating pain. Dr. Gomez notified at 15:08 and assessed patient. Ordered Phenobarbitol IM once with good effectiveness. Pt more relaxed but still arousable to name. Pt will continue Phenobarbital protocol PO. Next dose 21:00 and will report off to RN.
[2021-06-25] MEDS: Nicotine 21 MG PATCH.TD24 TRANSDERMA (21:06)
[2021-06-25] MEDS: PHENobarbitaL 30 MG TABLET 60 MG PO (21:07)
--- NOTE | 2021-06-25 22:47 | PC.NURSE ---
Pt very restless, moving from bed to commode constently without waiting for assistance. C/o abdominal pain 06/29. Dr. Maria notified, ordered one time oxycodone and atarax. Went to assess and administer ordered medications, pt sitting on edge of bed, falls on his right side and passed out on the bed. Unconscious for about 30 seconds. Ordered medications NOT given. Pt arousable to shaking, unaware of what happened or where he is. Rapid response called, Dr. Maria at bedside. Diana signs stable with HR being an exception in the 150s. Ordered to hold medications. Felix ALLEN at bedside to help. Patient passed out again for about 10-15 seconds reported by Felix. Abdominal CT ordered, patient transferred by Felix ALLEN and Brii ALLEN.
[2021-06-25] MEDS: Morphine Sulfate 4 MG/ML CARTRIDGE IVPUSH (23:32)
[2021-06-26] VITALS (15 sets, daily range): BP systolic 115–147; BP diastolic 70–85; PULSE 88–140; RESP 16–22; TEMP 36.4–36.9; O2SAT 90–100; BMI 23.5
--- NOTE | 2021-06-26 00:47 | PC.NURSE ---
Earlier in the shift pt asked for a cigarette; told him smoking is not allowed in the hospital. Pt asked for a nicotine patch which was ordered for him. Went to get the nicotine patch from the [facility], on the way back there was a heavy smell of cigarette smoke down the [place]. Pt reported he smoked half a cigarette then put it out in his shoe. Security called, cigarette pack and thermal engineer given to them. Pt educated about how unsafe it is to be smoking while on oxygen, as well as in the hospital.
--- NOTE | 2021-06-26 00:56 | PC.NURSE ---
Pt having a hard time maintaining sats > 88/89 on 15L evan Maria notified, ordered to start high flow. Respiratory at bedside, high flow started at 55L 90%, now satting 95%. Will continue to monitor and titrate as tolerated.
[2021-06-26] MEDS: Morphine Sulfate 4 MG/ML CARTRIDGE IVPUSH ×4 (04:33→20:31)
[2021-06-26] MEDS: Piperacillin Sodium/Tazobactam 4.5 GM in 0.9 % Sodium Chloride 100 ML IV ×4 (05:09→22:59)
--- NOTE | 2021-06-26 05:39 | PC.NURSE ---
Pt awake, stating he wants to leave AMA. Educated pt on the importance of staying for the withdrawl stage. Pt understanding.
[2021-06-26] MEDS: PHENobarbitaL 30 MG TABLET PO ×2 (06:27→19:41)
[2021-06-26] MEDS: hydrOXYzine HCL 25 MG TABLET PO (06:27)
--- NOTE | 2021-06-26 06:41 | PC.NURSE ---
Pt still wanting to leave AMA. Dr Maria at bedside to further educate the importance of staying in the hospital. Dr. Maria ordered atarax and 0900 dose of pheno to be given now. Both administered. Pt laying in bed quietly. Will report to Liberty ALLEN.
[2021-06-26] MEDS: Thiamine HCL 100 MG TABLET PO (08:43)
[2021-06-26] MEDS: Folic Acid 1 MG TABLET PO (08:43)
[2021-06-26] MEDS: Multivitamin TABLET 1 TAB PO (08:43)
[2021-06-26] MEDS: dexAMETHasone sod phosphate 4 MG/ML VIAL 6 MG IVPUSH (08:43)
[2021-06-26] MEDS: Nicotine 21 MG PATCH.TD24 TRANSDERMA (08:43)
[2021-06-26 09:22] LABS: MANUAL DIFF FLAG NO
[2021-06-26 09:30] LABS: Basophils Percent Auto 0.1 % (0-2); Eosinophils Percent Auto 0.4 % (0-4); Hematocrit 26.1 % (42-52); Hemoglobin 9.3 g/dl (14.0-18.0); Imm Gran Abs Auto 0.04 X10*3/uL (0.00-0.03); Imm Gran Pct Auto 0.5 % (0.0-0.4); Lymphocytes Absolute Auto 1.2 X10*3/uL (1.2-4.9); Lymphocytes Percent Auto 14.1 % (20-40); Mean Corpuscular HGB Conc 35.6 g/dl (31.0-36.0); Mean Corpuscular Hemoglobin 36.6 pg (27.0-33.0); Mean Corpuscular Volume 102.8 fL (80-98); Mean Platelet Volume 10.2 fL (9.4-12.4); Monocytes Absolute Auto 0.5 X10*3/uL (0.1-1.2); Monocytes Percent Auto 6.1 % (2-11); Neutrophils Absolute Auto 6.5 X10*3/uL (2.0-8.3); Neutrophils Percent Auto 78.8 % (45-73); Red Blood Count 2.54 X10*6/uL (4.60-5.80); Red Cell Distribution Width 16.9 % (11.0-16.0); White Blood Count 8.2 X10*3/uL (4.8-10.8)
[2021-06-26 09:32] LABS: Platelet Count 81 X10*3/uL (160-400)
[2021-06-26] MEDS: LORazepam 2 MG/ML VIAL 0.5 MG IVPUSH (09:33)
[2021-06-26 10:03] LABS: Alanine Aminotransferase 52 U/L (0-40); Albumin Level 2.2 g/dL (3.5-5.0); Alkaline Phosphatase 192 U/L (39-117); Anion Gap 11 (12-20); Aspartate Amino Transferase 134 U/L (5-37); Bilirubin Total 8.3 mg/dL (0.0-1.0); Blood Urea Nitrogen 5 mg/dL (9-16); Carbon Dioxide 35 mmol/L (22-29); Chloride 85 mmol/L (96-108); Creatinine Clr Calc Pharmacy 226.1; Estimated Glomerular Filt Rate > 60; Glucose Fasting 105 mg/dL (60-99); Sodium 128 mmol/L (135-145); Total Protein 5.4 g/dL (6.5-8.0)
[2021-06-26] MEDS: PHENobarbitaL sodium 130 MG/ML VIAL 247 MG IM ×2 (12:46→17:45)
[2021-06-26] MEDS: KCl 20 mEq in 0.45% Sod 20 MEQ/1,000 ML IV.SOLN 80 MEQ IVCONT (13:00)
--- NOTE | 2021-06-26 15:05 | PM.PNNEP ---
Subjective Subjective Date of Service: 06/26/21 Interval history: seen and examined more alert complains of pain Physical Exam Vital Signs: Vital Signs: Last Vital Signs Temp 97.5 F 06/26/21 11:44 Pulse 137 H 06/26/21 11:44 Resp 20 06/26/21 12:28 BP 138/84 06/26/21 11:44 Pulse Ox 91 L 06/26/21 11:44 Oxygen Flow Rate 2 06/23/21 22:26 Body Mass Index 23.5 Const: General: no acute distress HENMT: Head: Yes normocephalic and Yes atraumatic Neck: Neck: Yes supple Resp: Auscultation: diminished lung sounds Cardio: Heart sounds: S1 normal heart sound present and S2 normal heart sound present GI: Palpation (GI): Soft to palpation and no guarding Extrem: General: No edema Objective Data Labs CBC & Chem 7: 06/26/21 08:52 06/26/21 08:52 Labs: Laboratory Results - last 24 hr 06/26/21 06/26/21 08:52 08:52 WBC 8.2 RBC 2.54 L Hgb 9.3 L Hct 26.1 L MCV 102.8 H MCH 36.6 H MCHC 35.6 RDW 16.9 H Plt Count 81 L MPV 10.2 Immature Gran % (Auto) 0.5 H Neut % (Auto) 78.8 H Lymph % (Auto) 14.1 L [place] % (Auto) 6.1 Eos % (Auto) 0.4 Baso % (Auto) 0.1 Lymph # (Auto) 1.2 [place] # (Auto) 0.5 Eos # (Auto) 0.0 Baso # (Auto) 0.0 Abs Immat Gran (auto) 0.04 H Absolute Neuts (auto) 6.5 Absolute Nucleated RBC 0.000 Nucleated RBC % (auto) 0.0 Sodium 128 L Potassium 3.0 L Chloride 85 L Carbon Dioxide 35 H Anion Gap 11 L BUN 5 L Creatinine 0.53 Estim Creat Clear Calc 226.1 Estimated GFR > 60 Fasting Glucose 105 H Calcium 8.0 L Total Bilirubin 8.3 H AST 134 H ALT 52 H Alkaline Phosphatase 192 H Total Protein 5.4 L Albumin 2.2 L Microbiology Microbiology Results: Microbiology 06/23/21 21:31 Blood - Venous Blood Culture - Preliminary No growth after 48 hours. 06/23/21 21:31 Blood - Venous Blood Culture - Preliminary No growth after 48 hours. Procedures Date of Service Date of Service: 06/26/21 Assessment & Plan Assessment and plan (1) Hyponatremia: Status: Acute (2) Alcoholic cirrhosis of liver: Status: Acute Assessment and Plan: Sna continues to improve at reasonable pace hypotonic hyponatremia against the backdrop of ETOH liver cirrhosis multifactorial -hypovolemia -poor solute excretion -hepatic physiology avoid rapid correction more than 6-8 meq in 24 hour in alcoholic patient due to high risk of pontine demyelinosis REC continue isotonic fluid replace potassium follow kidney function and electrolytes Time Spent With Patient Time: Total time spent is greater than 50% in coordination of care (as documented) at patient's floor/unit and/or counseling patient: Progress Note: Quality Stroke Does the patient have a stroke diagnosis?: No
--- NOTE | 2021-06-26 17:04 | P.PNIM_ITS ---
Subjective Subjective Date of Service: 06/26/21 Interval History: Somnolent but arousable on phenobarb protocol.Requiring increased amounts of Phenobarb for agitation. Sats maintained with high-flow O2. Has one-to-one sitter Review of Systems Denies chest pain Denies shortness of breath Denies nausea vomiting diarrhea Physical Exam Vital Signs: Vital Signs: Last Vital Signs Temp 97.8 F 06/26/21 15:37 Pulse 130 H 06/26/21 15:37 Resp 20 06/26/21 15:37 BP 115/73 06/26/21 15:37 Pulse Ox 97 06/26/21 15:37 Oxygen Flow Rate 2 06/23/21 22:26 Body Mass Index 23.5 Const: Other: Agitated HENMT: Other: Membranes slightly Resp: Other: Clear all [place] without rales rhonchi or wheezes. Normal respiratory effort. Cardio: Other: No S4; positive S1-S2; no S3 without murmurs rubs or gallops GI: Other: Is soft, minimally tender midepigastrium without rebound. Bowel sounds x4 quadrants Neuro: Other: Age-appropriate nonfocal Extrem: Other: No edema bilaterally Objective Data Active Medications Dexamethasone Sodium Phosphate (Dexamethasone Sod Phosphate 4 Mg/Ml Vial) 6 mg IVPUSH DAILY [facility] Last Admin: 06/26/21 08:43 Dose: 6 mg Documented by: NILDA Folic Acid (Folic Acid 1 Mg Tablet) 1 mg PO DAILY [facility] Last Admin: 06/26/21 08:43 Dose: 1 mg Documented by: NILDA Piperacillin Sod/Tazobactam (Sod 4.5 gm/ Sodium Chloride) 100 mls @ 200 mls/hr IV Q6H [facility] Last Infusion: 06/26/21 12:54 Dose: 0 mls/hr Documented by: HOLLY Potassium Chloride/Sodium Chloride () 20 meq in 1,000 mls @ 80 mls/hr IVCONT .[id number] [facility] Last Admin: 06/26/21 13:00 Dose: 80 mls/hr Documented by: NILDA Medication (No Benzodiazepines) 1 each MISCELLANE DAILY [facility] Morphine Sulfate (Morphine Sulfate 4 Mg/Ml Cartridge) 4 mg IVPUSH Q4H PRN; Protocol PRN Reason: Pain, Severe (Pain Scale 7-10) Last Admin: 06/26/21 14:43 Dose: 4 mg Documented by: NILDA Multivitamins/Vitamin C (Multivitamin Tablet) 1 tab PO DAILY [facility] Last Admin: 06/26/21 08:43 Dose: 1 tab Documented by: NILDA Nicotine (Nicotine 21 Mg Patch.Td24) 21 mg TRANSDERMA DAILY [facility] Last Admin: 06/26/21 08:43 Dose: 21 mg Documented by: NILDA Phenobarbital (Phenobarbital 30 Mg Tablet) 30 mg PO BID [facility]; Protocol Stop: 06/27/21 21:01 Last Admin: 06/26/21 06:27 Dose: 30 mg Documented by: DIANE Phenobarbital (Phenobarbital 30 Mg Tablet) 30 mg PO DAILY [facility]; Protocol Stop: 06/29/21 09:01 Thiamine HCl (Thiamine Hcl 100 Mg Tablet) 100 mg PO DAILY [facility] Last Admin: 06/26/21 08:43 Dose: 100 mg Documented by: NILDA Labs CBC & Chem 7: 06/26/21 08:52 06/26/21 08:52 Labs: Laboratory Results - last 24 hr 06/26/21 06/26/21 08:52 08:52 MCV 102.8 H MCH 36.6 H MCHC 35.6 RDW 16.9 H Plt Count 81 L MPV 10.2 Immature Gran % (Auto) 0.5 H Neut % (Auto) 78.8 H Lymph % (Auto) 14.1 L [place] % (Auto) 6.1 Eos % (Auto) 0.4 Baso % (Auto) 0.1 Lymph # (Auto) 1.2 [place] # (Auto) 0.5 Eos # (Auto) 0.0 Baso # (Auto) 0.0 Abs Immat Gran (auto) 0.04 H Absolute Neuts (auto) 6.5 Absolute Nucleated RBC 0.000 Nucleated RBC % (auto) 0.0 Anion Gap 11 L Estim Creat Clear Calc 226.1 Estimated GFR > 60 Fasting Glucose 105 H Calcium 8.0 L Total Bilirubin 8.3 H AST 134 H ALT 52 H Alkaline Phosphatase 192 H Total Protein 5.4 L Albumin 2.2 L Microbiology Microbiology Results: Microbiology 06/23/21 21:31 Blood Culture - Preliminary Blood - Venous No growth after 48 hours. 06/23/21 21:31 Blood Culture - Preliminary Blood - Venous No growth after 48 hours. Assessment and Plan (1) Hyponatremia: Status: Acute (2) Alcohol abuse with withdrawal: Status: Acute Assessment and Plan: 35-year-old male with chronic alcohol abuse with evidence of hepatic insufficiency due to so alcoholic cirrhosis as well as portal hypertension with secondary gastropathy and chronic intestinal manifestations who comes in with acute alcohol intoxication with alcoholic hepatitis and gastropathy as well as alcoholic ketoacidosis and hypovolemia with marked circulatory contraction and secondary lactic acidosis initially presents with positive anion gap metabolic acidosis with confirmed covid 19 in the ED. Transfered from ICU. He was initially admitted with hyponatremia. 1.Covid 19: Titrated O2 to high-flow O2; maintaining sats when quiet; drops 1 agitated Continue IV Decadron as ordered V/Q scan negative for PE 2.Alcoholic ketoacidosis: Resolve likely fluids oral intake with supplements. Follow-up clinically 3.Alcohol abuse Requiring increased doses of IM phenobarbital; 4th loading dose given per pharmacy likely last dose. Can utilize Haldol and Ativan if needed 4.Hyponatremia: Appreciate renal input Continue IV fluids; goal of 128 this am 5. Hypokalemia: repleted. Follow clinically 6.Cirrhosis/portal HTN: Appreciate GI input. No indication for intervention at this time until COVID-19 stabilized 7. Colitis Continue Zosyn at this time. Switch to p.o. antibiotics when appropriate Quality Stroke Does the patient have a stroke diagnosis?: No VTE Prior VTE?: No VTE Risk Level:: Medical - moderate - high VTE Device Contraindication: Treatment Not Indicated VTE Drug Contraindication: N/A - Med Ordered
[2021-06-26 18:16] LABS: Alanine Aminotransferase 52 U/L (0-40); Albumin Level 2.1 g/dL (3.5-5.0); Alkaline Phosphatase 181 U/L (39-117); Anion Gap 10 (12-20); Aspartate Amino Transferase 125 U/L (5-37); Bilirubin Total 7.4 mg/dL (0.0-1.0); Blood Urea Nitrogen 5 mg/dL (9-16); Calcium 7.9 mg/dL (8.4-10.2); Carbon Dioxide 30 mmol/L (22-29); Chloride 91 mmol/L (96-108); Creatinine Clr Calc Pharmacy 230.5; Estimated Glomerular Filt Rate > 60; Glucose Fasting 179 mg/dL (60-99); Magnesium 1.6 mg/dL (1.6-2.6); Potassium 3.1 mmol/L (3.3-5.1); Sodium 128 mmol/L (135-145); Total Protein 5.2 g/dL (6.5-8.0)
[2021-06-26] MEDS: diphenhydrAMINE HCL 50 MG/ML VIAL 25 MG IVPUSH (22:59)
[2021-06-27] VITALS (10 sets, daily range): BP systolic 115–141; BP diastolic 74–92; PULSE 108–125; RESP 15–21; TEMP 36.7–37.1; O2SAT 92–99; BMI 23.5
[2021-06-27] MEDS: Morphine Sulfate 4 MG/ML CARTRIDGE IVPUSH ×6 (00:12→19:57)
[2021-06-27] MEDS: oxyCODONE HCl Immed Release 5 MG TABLET PO (02:57)
[2021-06-27] MEDS: KCl 20 mEq in 0.45% Sod 20 MEQ/1,000 ML IV.SOLN 80 MEQ IVCONT (04:17)
[2021-06-27] MEDS: Piperacillin Sodium/Tazobactam 4.5 GM in 0.9 % Sodium Chloride 100 ML IV ×4 (05:14→20:17)
--- NOTE | 2021-06-27 06:41 | PC.NURSE ---
Pt becoming increasingly agitated, stating he wants to leave AMA. Pt alert and oriented, currently on high flow. Pt states he understands the risks of leaving AMA. Pt educated and redirected by this RN. Sitter at bedside. Dr Maria notified, no new orders at this time. Pt states he is willing to see CARE team, will pass on to oncoming RN.
[2021-06-27 07:13] LABS: MANUAL DIFF FLAG NO
[2021-06-27 07:23] LABS: Basophils Percent Auto 0.4 % (0-2); Eosinophils Absolute Auto 0.1 X10*3/uL (0.0-0.4); Eosinophils Percent Auto 1.5 % (0-4); Hematocrit 23.5 % (42-52); Hemoglobin 8.3 g/dl (14.0-18.0); Imm Gran Abs Auto 0.04 X10*3/uL (0.00-0.03); Imm Gran Pct Auto 0.9 % (0.0-0.4); Lymphocytes Absolute Auto 0.9 X10*3/uL (1.2-4.9); Lymphocytes Percent Auto 20.5 % (20-40); Mean Corpuscular HGB Conc 35.3 g/dl (31.0-36.0); Mean Corpuscular Hemoglobin 35.8 pg (27.0-33.0); Mean Corpuscular Volume 101.3 fL (80-98); Mean Platelet Volume 10.3 fL (9.4-12.4); Monocytes Absolute Auto 0.4 X10*3/uL (0.1-1.2); Monocytes Percent Auto 8.8 % (2-11); Neutrophils Absolute Auto 3.1 X10*3/uL (2.0-8.3); Neutrophils Percent Auto 67.9 % (45-73); Platelet Count 76 X10*3/uL (160-400); Red Blood Count 2.32 X10*6/uL (4.60-5.80); Red Cell Distribution Width 16.4 % (11.0-16.0); White Blood Count 4.5 X10*3/uL (4.8-10.8)
[2021-06-27 08:27] LABS: Alanine Aminotransferase 51 U/L (0-40); Alkaline Phosphatase 169 U/L (39-117); Anion Gap 10 (12-20); Aspartate Amino Transferase 122 U/L (5-37); Blood Urea Nitrogen 4 mg/dL (9-16); Calcium 7.8 mg/dL (8.4-10.2); Carbon Dioxide 31 mmol/L (22-29); Chloride 91 mmol/L (96-108); Creatinine Clr Calc Pharmacy 244.6; Estimated Glomerular Filt Rate > 60; Glucose Random 94 mg/dL (60-115); Magnesium 1.5 mg/dL (1.6-2.6); Potassium 2.8 mmol/L (3.3-5.1); Sodium 129 mmol/L (135-145)
[2021-06-27] MEDS: Folic Acid 1 MG TABLET PO (08:34)
[2021-06-27] MEDS: PHENobarbitaL 30 MG TABLET PO ×2 (08:34→19:57)
[2021-06-27] MEDS: Thiamine HCL 100 MG TABLET PO (08:34)
[2021-06-27] MEDS: Multivitamin TABLET 1 TAB PO (08:34)
[2021-06-27] MEDS: Nicotine 21 MG PATCH.TD24 TRANSDERMA (08:35)
[2021-06-27] MEDS: dexAMETHasone sod phosphate 4 MG/ML VIAL 6 MG IVPUSH (08:35)
--- NOTE | 2021-06-27 15:34 | P.PNNP_ITS ---
Subjective Subjective Date of Service: 06/27/21 Interval history: seen and examined I want to leave AMA Physical Exam Vital Signs: Vital Signs: Last Vital Signs Temp 98.7 F 06/27/21 04:00 Pulse 122 H 06/27/21 11:38 Resp 20 06/27/21 11:40 BP 118/86 06/27/21 11:38 Pulse Ox 98 06/27/21 11:38 Oxygen Flow Rate 2 06/23/21 22:26 Body Mass Index 23.5 Const: General: no acute distress HENMT: Head: Yes normocephalic and Yes atraumatic Neck: Neck: Yes supple Resp: Auscultation: diminished lung sounds Cardio: Heart sounds: S1 normal heart sound present and S2 normal heart sound present GI: Palpation (GI): Soft to palpation and no guarding Extrem: General: No edema Objective Data Labs CBC & Chem 7: 06/27/21 06:59 06/27/21 06:59 Labs: Laboratory Results - last 24 hr 06/26/21 06/27/21 06/27/21 17:40 06:59 06:59 WBC 4.5 L RBC 2.32 L Hgb 8.3 L Hct 23.5 L MCV 101.3 H MCH 35.8 H MCHC 35.3 RDW 16.4 H Plt Count 76 L MPV 10.3 Immature Gran % (Auto) 0.9 H Neut % (Auto) 67.9 Lymph % (Auto) 20.5 [place] % (Auto) 8.8 Eos % (Auto) 1.5 Baso % (Auto) 0.4 Lymph # (Auto) 0.9 L [place] # (Auto) 0.4 Eos # (Auto) 0.1 Baso # (Auto) 0.0 Abs Immat Gran (auto) 0.04 H Absolute Neuts (auto) 3.1 Absolute Nucleated RBC 0.000 Nucleated RBC % (auto) 0.0 Sodium 128 L 129 L Potassium 3.1 L 2.8 L Chloride 91 L 91 L Carbon Dioxide 30 H 31 H Anion Gap 10 L 10 L BUN 5 L 4 L Creatinine 0.52 0.49 L Estim Creat Clear Calc 230.5 244.6 Estimated GFR > 60 > 60 Random Glucose 94 Fasting Glucose 179 H D Calcium 7.9 L 7.8 L Magnesium 1.6 1.5 L Total Bilirubin 7.4 H 6.0 H AST 125 H 122 H ALT 52 H 51 H Alkaline Phosphatase 181 H 169 H Total Protein 5.2 L 5.0 L Albumin 2.1 L 2.0 L Microbiology Microbiology Results: Microbiology 06/23/21 21:31 Blood - Venous Blood Culture - Preliminary No growth after 48 hours. 06/23/21 21:31 Blood - Venous Blood Culture - Preliminary No growth after 48 hours. Procedures Date of Service Date of Service: 06/27/21 Assessment & Plan Assessment and plan (1) Hyponatremia: Status: Acute (2) Alcoholic cirrhosis of liver: Status: Acute Assessment and Plan: Sna better rate of correction acceptable hypotonic hyponatremia against the backdrop of ETOH liver cirrhosis multifactorial -hypovolemia -poor solute excretion -hepatic physiology ETOH causes magnesium tubular dysfunction REC discontinue IVF fluid restriction 1200 cc daily replace potassium and magnesium follow kidney function and electrolytes Time Spent With Patient Time: Total time spent is greater than 50% in coordination of care (as documented) at patient's floor/unit and/or counseling patient: Progress Note: Quality Stroke Does the patient have a stroke diagnosis?: No
[2021-06-27] MEDS: LORazepam 2 MG/ML VIAL 1 MG IVPUSH ×2 (15:38→20:17)
[2021-06-27] MEDS: Haloperidol Lactate 5 MG/ML VIAL IM (16:08)
--- NOTE | 2021-06-27 16:54 | P.PNIM_ITS ---
Subjective Subjective Date of Service: 06/27/21 Interval History: Extremely agitated... Repeatedly stating he wants to sign out. On 40% O2.... Desats to 70s when off. Cannot comprehend the risk to leaving AMA. States he will ?just call for a ride down stairs?. Repeatedly saying I'll go to AA when I get out'. Review of Systems Denies chest pain Denies shortness of breath Denies nausea vomiting diarrhea Physical Exam Vital Signs: Vital Signs: Last Vital Signs Temp 98.7 F 06/27/21 04:00 Pulse 122 H 06/27/21 11:38 Resp 20 06/27/21 11:40 BP 118/86 06/27/21 11:38 Pulse Ox 98 06/27/21 11:38 Oxygen Flow Rate 2 06/23/21 22:26 Body Mass Index 23.5 Const: Other: Agitated ; requires one-to-one sitter HENMT: Other: Membranes slightly Resp: Other: Clear all [place] without rales rhonchi or wheezes. Normal respiratory effort. Cardio: Other: No S4; positive S1-S2; no S3 without murmurs rubs or gallops GI: Other: Is soft, minimally tender midepigastrium without rebound. Bowel sounds x4 quadrants Neuro: Other: Confused/agitated; not capable of making sound medical decisions at this point Extrem: Other: No edema bilaterally Objective Data Active Medications Dexamethasone Sodium Phosphate (Dexamethasone Sod Phosphate 4 Mg/Ml Vial) 6 mg IVPUSH DAILY ON LICENSE OF [facility] Last Admin: 06/27/21 08:35 Dose: 6 mg Documented by: ISIDORO Folic Acid (Folic Acid 1 Mg Tablet) 1 mg PO DAILY ON LICENSE OF [facility] Last Admin: 06/27/21 08:34 Dose: 1 mg Documented by: ISIDORO Piperacillin Sod/Tazobactam (Sod 4.5 gm/ Sodium Chloride) 100 mls @ 200 mls/hr IV Q6H ON LICENSE OF [facility] Last Infusion: 06/27/21 14:51 Dose: 0 mls/hr Documented by: ISIDORO Potassium Chloride/Sodium Chloride () 20 meq in 1,000 mls @ 80 mls/hr IVCONT .[id number] ON LICENSE OF [facility] Last Admin: 06/27/21 04:17 Dose: 80 mls/hr Documented by: HO.PIONA Medication (No Benzodiazepines) 1 each MISCELLANE DAILY ON LICENSE OF [facility] Morphine Sulfate (Morphine Sulfate 4 Mg/Ml Cartridge) 4 mg IVPUSH Q4H PRN; Protocol PRN Reason: Pain, Severe (Pain Scale 7-10) Last Admin: 06/27/21 13:12 Dose: 4 mg Documented by: ISIDORO Multivitamins/Vitamin C (Multivitamin Tablet) 1 tab PO DAILY ON LICENSE OF [facility] Last Admin: 06/27/21 08:34 Dose: 1 tab Documented by: ISIDORO Nicotine (Nicotine 21 Mg Patch.Td24) 21 mg TRANSDERMA DAILY ON LICENSE OF [facility] Last Admin: 06/27/21 08:35 Dose: 21 mg Documented by: ISIDORO Phenobarbital (Phenobarbital 30 Mg Tablet) 30 mg PO BID ON LICENSE OF [facility]; Protocol Stop: 06/27/21 21:01 Last Admin: 06/27/21 08:34 Dose: 30 mg Documented by: ISIDORO Phenobarbital (Phenobarbital 30 Mg Tablet) 30 mg PO DAILY ON LICENSE OF [facility]; Protocol Stop: 06/29/21 09:01 Thiamine HCl (Thiamine Hcl 100 Mg Tablet) 100 mg PO DAILY ON LICENSE OF [facility] Last Admin: 06/27/21 08:34 Dose: 100 mg Documented by: ISIDORO Labs CBC & Chem 7: 06/27/21 06:59 06/27/21 06:59 Labs: Laboratory Results - last 24 hr 06/26/21 06/27/21 06/27/21 17:40 06:59 06:59 MCV 101.3 H MCH 35.8 H MCHC 35.3 RDW 16.4 H Plt Count 76 L MPV 10.3 Immature Gran % (Auto) 0.9 H Neut % (Auto) 67.9 Lymph % (Auto) 20.5 [place] % (Auto) 8.8 Eos % (Auto) 1.5 Baso % (Auto) 0.4 Lymph # (Auto) 0.9 L [place] # (Auto) 0.4 Eos # (Auto) 0.1 Baso # (Auto) 0.0 Abs Immat Gran (auto) 0.04 H Absolute Neuts (auto) 3.1 Absolute Nucleated RBC 0.000 Nucleated RBC % (auto) 0.0 Anion Gap 10 L 10 L Estim Creat Clear Calc 230.5 244.6 Estimated GFR > 60 > 60 Random Glucose 94 Fasting Glucose 179 H D Calcium 7.9 L 7.8 L Magnesium 1.6 1.5 L Total Bilirubin 7.4 H 6.0 H AST 125 H 122 H ALT 52 H 51 H Alkaline Phosphatase 181 H 169 H Total Protein 5.2 L 5.0 L Albumin 2.1 L 2.0 L Assessment and Plan Assessment and Plan: 35-year-old male with chronic alcohol abuse with evidence of hepatic insufficiency due to so alcoholic cirrhosis as well as portal hypertension with secondary gastropathy and chronic intestinal manifestations who comes in with acute alcohol intoxication with alcoholic hepatitis and gastropathy as well as alcoholic ketoacidosis and hypovolemia with marked circulatory contraction and secondary lactic acidosis initially presents with positive anion gap metabolic acidosis with confirmed covid 19 in the ED. Transfered from ICU. Attempt to maintain on phenobarb protocol however require increased dosing with supplemental Ativan and Haldol. 1.Covid 19: Titrated O2 to 40%; maintaining sats when quiet; drops to 70s when agitatedagitated Continue IV Decadron as ordered V/Q scan negative for PE 2.Alcoholic ketoacidosis: Resolve likely fluids oral intake with supplements. Follow-up clinically 3.Alcohol abuse Requiring increased doses of IM phenobarbital; 4th loading dose given per pharmacy likely last dose. Utilize Haldol and Ativan as needed 4.Hyponatremia: Appreciate renal input; hold IV fluids; goal of 128 this am 5. Hypokalemia: Follow clinically..... Replete as indicated. Will replete potassium and magnesium the stay 6.Cirrhosis/portal HTN: Appreciate GI input. No indication for intervention at this time until COVID-19 stabilized 7. Colitis Continue Zosyn at this time. Switch to p.o. antibiotics when appropriate Disposition At this point in time, patient is not capable medically to make decisions on his care. He is not ready for discharge as clearly demonstrated by his desaturation off O2 and his delusional thinking. Will continue current protocol asked one-to-one sitter in security as needed Quality Stroke Does the patient have a stroke diagnosis?: No VTE Prior VTE?: No VTE Risk Level:: Medical - moderate - high VTE Device Contraindication: Treatment Not Indicated VTE Drug Contraindication: N/A - Med Ordered
[2021-06-27] MEDS: Potassium Chloride Packet 20 MEQ PACKET 40 MEQ PO (17:40)
[2021-06-27] MEDS: Magnesium Sulfate/H2O 2 GM/50 ML PIGGYBACK IV (18:17)
[2021-06-27] MEDS: diphenhydrAMINE HCL 50 MG/ML VIAL 25 MG IVPUSH (23:31)
[2021-06-28] VITALS (8 sets, daily range): BP systolic 104–142; BP diastolic 64–94; PULSE 74–114; RESP 18–20; TEMP 36.1–36.6; O2SAT 90–98; BMI 23.6
[2021-06-28] MEDS: Piperacillin Sodium/Tazobactam 4.5 GM in 0.9 % Sodium Chloride 100 ML IV ×4 (05:12→22:40)
[2021-06-28] MEDS: Morphine Sulfate 4 MG/ML CARTRIDGE IVPUSH ×4 (05:12→20:53)
[2021-06-28] MEDS: Nicotine 21 MG PATCH.TD24 TRANSDERMA (09:23)
[2021-06-28] MEDS: dexAMETHasone sod phosphate 4 MG/ML VIAL 6 MG IVPUSH (09:24)
[2021-06-28] MEDS: Folic Acid 1 MG TABLET PO (09:25)
[2021-06-28] MEDS: Multivitamin TABLET 1 TAB PO (09:25)
[2021-06-28] MEDS: Thiamine HCL 100 MG TABLET PO (09:25)
[2021-06-28] MEDS: PHENobarbitaL 30 MG TABLET PO (09:25)
[2021-06-28 10:22] LABS: MANUAL DIFF FLAG NO
[2021-06-28 10:25] LABS: Basophils Percent Auto 0.7 % (0-2); Eosinophils Absolute Auto 0.1 X10*3/uL (0.0-0.4); Eosinophils Percent Auto 1.3 % (0-4); Hematocrit 25.3 % (42-52); Hemoglobin 8.9 g/dl (14.0-18.0); Imm Gran Abs Auto 0.06 X10*3/uL (0.00-0.03); Imm Gran Pct Auto 1.3 % (0.0-0.4); Lymphocytes Absolute Auto 0.8 X10*3/uL (1.2-4.9); Lymphocytes Percent Auto 18.4 % (20-40); Mean Corpuscular HGB Conc 35.2 g/dl (31.0-36.0); Mean Corpuscular Hemoglobin 36.5 pg (27.0-33.0); Mean Corpuscular Volume 103.7 fL (80-98); Mean Platelet Volume 9.8 fL (9.4-12.4); Monocytes Absolute Auto 0.3 X10*3/uL (0.1-1.2); Monocytes Percent Auto 6.7 % (2-11); Neutrophils Absolute Auto 3.2 X10*3/uL (2.0-8.3); Neutrophils Percent Auto 71.6 % (45-73); Platelet Count 88 X10*3/uL (160-400); Red Blood Count 2.44 X10*6/uL (4.60-5.80); Red Cell Distribution Width 16.5 % (11.0-16.0); White Blood Count 4.5 X10*3/uL (4.8-10.8)
[2021-06-28] MEDS: Haloperidol Lactate 5 MG/ML VIAL IM (10:54)
[2021-06-28] MEDS: LORazepam 2 MG/ML VIAL 1 MG IVPUSH ×2 (10:54→20:53)
[2021-06-28 11:15] LABS: Alanine Aminotransferase 52 U/L (0-40); Albumin Level 2.2 g/dL (3.5-5.0); Alkaline Phosphatase 173 U/L (39-117); Anion Gap 11 (12-20); Aspartate Amino Transferase 121 U/L (5-37); Bilirubin Total 4.3 mg/dL (0.0-1.0); Blood Urea Nitrogen 3 mg/dL (9-16); Calcium 7.8 mg/dL (8.4-10.2); Carbon Dioxide 27 mmol/L (22-29); Chloride 97 mmol/L (96-108); Creatinine Clr Calc Pharmacy 226.1; Estimated Glomerular Filt Rate > 60; Glucose Fasting 117 mg/dL (60-99); Potassium 3.6 mmol/L (3.3-5.1); Sodium 131 mmol/L (135-145); Total Protein 5.5 g/dL (6.5-8.0)
--- NOTE | 2021-06-28 17:10 | HO.PM.IMPN ---
Subjective Subjective Date of Service: 06/28/21 Interval History: Extremely agitated... Repeatedly stating he wants to sign out. Oxygen requirement decreasing. Cannot comprehend the risk to leaving AMA. States he will ?just call for a ride down stairs?. Repeatedly saying I'll go to AA when I get out'. Review of Systems Denies chest pain Denies shortness of breath Denies nausea vomiting diarrhea Physical Exam Vital Signs: Vital Signs: Last Vital Signs Temp 97.4 F 06/28/21 15:02 Pulse 113 H 06/28/21 15:02 Resp 20 06/28/21 15:02 BP 104/80 06/28/21 15:02 Pulse Ox 91 L 06/28/21 16:26 Oxygen Flow Rate 2 06/23/21 22:26 Body Mass Index 23.6 Const: Other: Agitated ; requires one-to-one sitter HENMT: Other: Membranes slightly Resp: Other: Clear all [place] without rales rhonchi or wheezes. Normal respiratory effort. Cardio: Other: No S4; positive S1-S2; no S3 without murmurs rubs or gallops GI: Other: Is soft, minimally tender midepigastrium without rebound. Bowel sounds x4 quadrants Neuro: Other: Confused/agitated; moves all extremities with equal power and purpose Extrem: Other: No edema bilaterally Objective Data Active Medications Dexamethasone Sodium Phosphate (Dexamethasone Sod Phosphate 4 Mg/Ml Vial) 6 mg IVPUSH DAILY [facility] Last Admin: 06/28/21 09:24 Dose: 6 mg Documented by: JOSHUA Folic Acid (Folic Acid 1 Mg Tablet) 1 mg PO DAILY [facility] Last Admin: 06/28/21 09:25 Dose: 1 mg Documented by: JOSHUA Piperacillin Sod/Tazobactam (Sod 4.5 gm/ Sodium Chloride) 100 mls @ 200 mls/hr IV Q6H [facility] Last Admin: 06/28/21 16:59 Dose: 200 mls/hr Documented by: JOSHUA Medication (No Benzodiazepines) 1 each MISCELLANE DAILY [facility] Morphine Sulfate (Morphine Sulfate 4 Mg/Ml Cartridge) 4 mg IVPUSH Q4H PRN; Protocol PRN Reason: Pain, Severe (Pain Scale 7-10) Last Admin: 06/28/21 16:59 Dose: 4 mg Documented by: JOSHUA Multivitamins/Vitamin C (Multivitamin Tablet) 1 tab PO DAILY [facility] Last Admin: 06/28/21 09:25 Dose: 1 tab Documented by: JOSHUA Nicotine (Nicotine 21 Mg Patch.Td24) 21 mg TRANSDERMA DAILY [facility] Last Admin: 06/28/21 09:23 Dose: 21 mg Documented by: JOSHUA Phenobarbital (Phenobarbital 30 Mg Tablet) 30 mg PO DAILY [facility]; Protocol Stop: 06/29/21 09:01 Last Admin: 06/28/21 09:25 Dose: 30 mg Documented by: JOSHUA Thiamine HCl (Thiamine Hcl 100 Mg Tablet) 100 mg PO DAILY [facility] Last Admin: 06/28/21 09:25 Dose: 100 mg Documented by: JOSHUA Labs CBC & Chem 7: 06/28/21 10:16 06/28/21 10:16 Labs: Laboratory Results - last 24 hr 06/28/21 06/28/21 10:16 10:16 MCV 103.7 H MCH 36.5 H MCHC 35.2 RDW 16.5 H Plt Count 88 L MPV 9.8 Immature Gran % (Auto) 1.3 H Neut % (Auto) 71.6 Lymph % (Auto) 18.4 L [place] % (Auto) 6.7 Eos % (Auto) 1.3 Baso % (Auto) 0.7 Lymph # (Auto) 0.8 L [place] # (Auto) 0.3 Eos # (Auto) 0.1 Baso # (Auto) 0.0 Abs Immat Gran (auto) 0.06 H Absolute Neuts (auto) 3.2 Absolute Nucleated RBC 0.000 Nucleated RBC % (auto) 0.0 Anion Gap 11 L Estim Creat Clear Calc 226.1 Estimated GFR > 60 Fasting Glucose 117 H Calcium 7.8 L Total Bilirubin 4.3 H AST 121 H ALT 52 H Alkaline Phosphatase 173 H Total Protein 5.5 L Albumin 2.2 L Assessment and Plan (1) Alcohol abuse: Status: Acute Assessment and Plan: 35-year-old male with chronic alcohol abuse with evidence of hepatic insufficiency due to so alcoholic cirrhosis as well as portal hypertension with secondary gastropathy and chronic intestinal manifestations who comes in with acute alcohol intoxication with alcoholic hepatitis and gastropathy as well as alcoholic ketoacidosis and hypovolemia with marked circulatory contraction and secondary lactic acidosis initially presents with positive anion gap metabolic acidosis with confirmed covid 19 in the ED. Transfered from ICU. Attempt to maintain on phenobarb protocol however require increased dosing with supplemental Ativan and Haldol. Oxygen requirement decreasing 1.Covid 19: Maintaining sats when quiet; drops to 70s when agitatedagitated Continue IV Decadron as ordered V/Q scan negative for PE 2.Alcoholic ketoacidosis: Resolve likely fluids oral intake with supplements. Follow-up clinically 3.Alcohol abuse Utilize Haldol and Ativan IV. Reassess in a.m. 4.Hyponatremia: Appreciate renal input; hold IV fluids; goal of 128 this am 5. Hypokalemia: Follow clinically..... Replete as indicated. Will replete potassium and magnesium the stay 6.Cirrhosis/portal HTN: Appreciate GI input. No indication for intervention at this time until COVID-19 stabilized 7. Colitis Continue Zosyn at this time. Switch to p.o. antibiotics when appropriate Disposition At this point in time, patient is not capable medically to make decisions on his care. He is not ready for discharge as clearly demonstrated by his desaturation off O2 and his delusional thinking. Will continue current protocol asked one-to-one sitter in security as needed. As oxygen requirement decreases hopefully will clear Quality Stroke Does the patient have a stroke diagnosis?: No VTE Prior VTE?: No VTE Risk Level:: Medical - moderate - high VTE Device Contraindication: Treatment Not Indicated VTE Drug Contraindication: N/A - Med Ordered
--- NOTE | 2021-06-28 17:44 | PM.PNNEP ---
Subjective Subjective Date of Service: 06/28/21 Interval history: Events noted. All recent data reviewed. Physical Exam Vital Signs: Vital Signs: Last Vital Signs Temp 97.4 F 06/28/21 15:02 Pulse 113 H 06/28/21 15:02 Resp 20 06/28/21 15:02 BP 104/80 06/28/21 15:02 Pulse Ox 91 L 06/28/21 16:26 Oxygen Flow Rate 2 06/23/21 22:26 Body Mass Index 23.6 Const: General: no acute distress Eyes: EOM: EOMs intact bilaterally Neck: Neck: Yes supple Resp: Auscultation: diminished lung sounds Cardio: Rate: regular rate GI: Palpation (GI): Soft to palpation Neuro: General: moves all extremities Objective Data Labs CBC & Chem 7: 06/28/21 10:16 06/28/21 10:16 Labs: Laboratory Results - last 24 hr 06/28/21 06/28/21 10:16 10:16 WBC 4.5 L RBC 2.44 L Hgb 8.9 L Hct 25.3 L MCV 103.7 H MCH 36.5 H MCHC 35.2 RDW 16.5 H Plt Count 88 L MPV 9.8 Immature Gran % (Auto) 1.3 H Neut % (Auto) 71.6 Lymph % (Auto) 18.4 L [place] % (Auto) 6.7 Eos % (Auto) 1.3 Baso % (Auto) 0.7 Lymph # (Auto) 0.8 L [place] # (Auto) 0.3 Eos # (Auto) 0.1 Baso # (Auto) 0.0 Abs Immat Gran (auto) 0.06 H Absolute Neuts (auto) 3.2 Absolute Nucleated RBC 0.000 Nucleated RBC % (auto) 0.0 Sodium 131 L Potassium 3.6 D Chloride 97 Carbon Dioxide 27 Anion Gap 11 L BUN 3 L Creatinine 0.53 Estim Creat Clear Calc 226.1 Estimated GFR > 60 Fasting Glucose 117 H Calcium 7.8 L Total Bilirubin 4.3 H AST 121 H ALT 52 H Alkaline Phosphatase 173 H Total Protein 5.5 L Albumin 2.2 L Microbiology Microbiology Results: Microbiology 06/23/21 21:31 Blood - Venous Blood Culture - Preliminary No growth after 48 hours. 06/23/21 21:31 Blood - Venous Blood Culture - Preliminary No growth after 48 hours. Procedures Date of Service Date of Service: 06/28/21 Assessment & Plan Assessment and plan (1) Hyponatremia: Status: Acute Assessment and Plan: Sna better rate of correction acceptable Hyponatremia multifactorial -hypovolemia -poor solute excretion -hepatic physiology fluid restriction 1200 cc daily Labs AM. Shall F/U Time Spent With Patient Time: Total time spent is greater than 50% in coordination of care (as documented) at patient's floor/unit and/or counseling patient: Progress Note: Quality Stroke Does the patient have a stroke diagnosis?: No
[2021-06-28] MEDS: diphenhydrAMINE HCL 50 MG/ML VIAL 25 MG IVPUSH (20:53)
[2021-06-29] MEDS: Morphine Sulfate 4 MG/ML CARTRIDGE IVPUSH ×2 (02:24→06:13)
[2021-06-29 04:00] VITALS: BP 137/91; PULSE 94; RESP 20; TEMP 36.8; O2SAT 92
[2021-06-29] MEDS: Piperacillin Sodium/Tazobactam 4.5 GM in 0.9 % Sodium Chloride 100 ML IV (06:12)
[2021-06-29 06:32] LABS: MANUAL DIFF FLAG NO
[2021-06-29 06:39] LABS: Basophils Percent Auto 0.8 % (0-2); Eosinophils Absolute Auto 0.1 X10*3/uL (0.0-0.4); Eosinophils Percent Auto 1.3 % (0-4); Hematocrit 24.2 % (42-52); Hemoglobin 8.5 g/dl (14.0-18.0); Imm Gran Abs Auto 0.09 X10*3/uL (0.00-0.03); Imm Gran Pct Auto 2.3 % (0.0-0.4); Lymphocytes Percent Auto 26.8 % (20-40); Mean Corpuscular HGB Conc 35.1 g/dl (31.0-36.0); Mean Corpuscular Hemoglobin 36.6 pg (27.0-33.0); Mean Corpuscular Volume 104.3 fL (80-98); Mean Platelet Volume 10.3 fL (9.4-12.4); Monocytes Absolute Auto 0.4 X10*3/uL (0.1-1.2); Monocytes Percent Auto 10.3 % (2-11); Neutrophils Absolute Auto 2.3 X10*3/uL (2.0-8.3); Neutrophils Percent Auto 58.5 % (45-73); Platelet Count 102 X10*3/uL (160-400); Red Blood Count 2.32 X10*6/uL (4.60-5.80); Red Cell Distribution Width 17.2 % (11.0-16.0); White Blood Count 3.9 X10*3/uL (4.8-10.8)
[2021-06-29 06:54] LABS: Alanine Aminotransferase 51 U/L (0-40); Albumin Level 2.1 g/dL (3.5-5.0); Alkaline Phosphatase 169 U/L (39-117); Anion Gap 10 (12-20); Aspartate Amino Transferase 104 U/L (5-37); Bilirubin Total 3.7 mg/dL (0.0-1.0); Blood Urea Nitrogen 4 mg/dL (9-16); Calcium 8.1 mg/dL (8.4-10.2); Carbon Dioxide 28 mmol/L (22-29); Chloride 99 mmol/L (96-108); Creatinine Clr Calc Pharmacy 230.5; Estimated Glomerular Filt Rate > 60; Glucose Fasting 87 mg/dL (60-99); Magnesium 1.7 mg/dL (1.6-2.6); Sodium 134 mmol/L (135-145); Total Protein 5.2 g/dL (6.5-8.0)
[2021-06-29] MEDS: Nicotine 21 MG PATCH.TD24 TRANSDERMA (09:14)
[2021-06-29] MEDS: PHENobarbitaL 30 MG TABLET PO (09:14)
[2021-06-29] MEDS: dexAMETHasone sod phosphate 4 MG/ML VIAL 6 MG IVPUSH (09:14)
[2021-06-29] MEDS: Multivitamin TABLET 1 TAB PO (09:14)
[2021-06-29] MEDS: Folic Acid 1 MG TABLET PO (09:14)
[2021-06-29] MEDS: Thiamine HCL 100 MG TABLET PO (09:14)
--- NOTE | 2021-06-29 10:24 | PC.NURSE ---
PT EVALUATED BY DR PEDRAZA. O2 SAT 94% RA. MENTATION IS CLEAR. PT REQUESTING TO LEAVE AMA. RISKS OF LEAVING EXPLAINED BY MD. PT MADE AWARE THAT HE NEEDS TO QUARANTINE. [facility]TE CATH REMOVED. IV REMOVED.
--- NOTE | 2021-06-29 12:36 | MHC.RECOVSUP ---
Recovery Support note: This advertising copywriter attempt to consult patient via telephone however patient did not answer the phone. Patient left AMA prior to the Recovery Support Team establishing contact with patient. This advertising copywriter is available if patient is interested in outpatient resources after discharge.
--- NOTE | 2021-06-29 13:36 | PM.DS ---
DS: Providers Provider Date of Service: 06/29/21 Date of admission: 06/23/21 22:47 Primary care physician: Kiesha Strickland MD Consults: 06/24/21 13:19 Consult to Nephrology Routine Consulting Provider: Jose A Matta Reason for consultation: hyponatremia Has provider been notified: No 06/24/21 15:30 Consult to Gastroenterology Routine Consulting Provider: Sandie Medley Reason for consultation: ascites, colitis Has provider been notified: No 06/26/21 00:19 Consult to Care Team Routine Comment: Reason for consultation: substance abuse, DS: Diagnosis Discharge Diagnosis (1) Hyponatremia: Status: Acute (2) Alcohol abuse with withdrawal: Status: Acute DS: Summary Hospital Course Hospital Course: This is a 35-year-old male with a past medical history of alcohol abuse, complicated by withdrawal seizures, opioid abuse, GI bleed with portal hypertensive gastritis and frequent episodes of pancreatitis? who presented to the emergency room with? generalized weakness.? He reports he was at [facility] last week, was diagnosed with COVID-19? but left ? Against medical advice. ? He now reports? multiple episodes of vomiting worsening in the last few days, feeling weak and unable to walk,? he is a daily drinker and admits to drinking 2 hours before? coming to the emergency room. In the ED he denied any respiratory issues.? Initial vital signs,? patient afebrile, ? respiratory rate 20, satting? 94% on room air. ? Heart rate 130s,? BP 150/98.? Laboratory data significant for:? WBC 16.3,? hemoglobin 13.7, hematocrit 35.5,? serum sodium 114, potassium 2.3, chloride 65, BUN 4,? osmolality 272, calcium 8, magnesium 1.4, total bilirubin 7.6, AST 238, ALT 89, alk phos 317,? lactic acid 10.3, albumin 2.6, lipase 7.? In the emergency room he received? cefepime, 1 L normal saline,? 2 mg of Ativan x2, ? 2 g ? magnesium, ? Protonix 80 mg,? Protonix drip,? 40 mEq potassium, as well as number saline with 40 mEq potassium was initiated.? Patient will be admitted to the ICU for management of acute hyponatremia? and COVID-19 Hospital course Patient able to tolerate high-flow O2 and was transferred to the floor. Over the next several days he required increased amounts of phenobarb outside of protocol along with IV Ativan and Haldol to control his agitation. On multiple occasion he attempted to elope/AMA however was redirected by sitter. He continued to be incapable of making sound medical decisions up to the morning of discharge. On the morning of discharge he had no O2 requirement and his room air sats were 92%. His thought process was clear. However his heart rate still was elevated during activity and it was deemed that he should not leave the hospital at this time. Despite multiple attempts patient refused to stay and ultimately signed out against medical advice. He had been offered many times inpatient and outpatient substance abuse programs but continued to declined stating ?I will go to AA . Status at Discharge Cognitive/behavioral status at discharge: Medically stable Time Spent with Patient Time attestation: Total time spent providing and/or coordinating discharge services: Discharge coordination time: Greater than 30 minutes Quality: Stroke Does the patient have a stroke diagnosis?: No Physical Exam Vital Signs: Vital Signs: Last Vital Signs Temp 98.3 F 06/29/21 04:00 Pulse 94 06/29/21 04:00 Resp 20 06/29/21 04:00 BP 137/91 H 06/29/21 04:00 Pulse Ox 92 06/29/21 04:00 Oxygen Flow Rate 2 06/23/21 22:26 Body Mass Index 23.6 Const: Other: Clear, focused this a.m.. Seated on the side of the bed legs crossed and quiet HENMT: Other: Membranes slightly Resp: Other: Clear all [place] without rales rhonchi or wheezes. Normal respiratory effort. Cardio: Other: No S4; positive S1-S2; no S3 without murmurs rubs or gallops GI: Other: Is soft, minimally tender midepigastrium without rebound. Bowel sounds x4 quadrants Neuro: Other: Awake alert oriented x3. Cranial nerves 2-12 grossly intact as tested motor is 5/5 all extremities. Gait is steady. Cognition is stable with good thought process; is able to restate the risks of signing out AMA however continues to accept the responsibility. Extrem: Other: No edema bilaterally DS: Data Data Completed and Pending Completed studies during hospitalization [Text1]: Procedures Detoxification Services for Substance Abuse Treatment (05/04/21) Labs on day of discharge: Laboratory Results - last 24 hr 06/29/21 06/29/21 06:07 06:07 WBC 3.9 L RBC 2.32 L Hgb 8.5 L Hct 24.2 L MCV 104.3 H MCH 36.6 H MCHC 35.1 RDW 17.2 H Plt Count 102 L MPV 10.3 Immature Gran % (Auto) 2.3 H Neut % (Auto) 58.5 Lymph % (Auto) 26.8 [place] % (Auto) 10.3 Eos % (Auto) 1.3 Baso % (Auto) 0.8 Lymph # (Auto) 1.0 L [place] # (Auto) 0.4 Eos # (Auto) 0.1 Baso # (Auto) 0.0 Abs Immat Gran (auto) 0.09 H Absolute Neuts (auto) 2.3 Absolute Nucleated RBC 0.000 Nucleated RBC % (auto) 0.0 Sodium 134 L Potassium 3.0 L Chloride 99 Carbon Dioxide 28 Anion Gap 10 L BUN 4 L Creatinine 0.52 Estim Creat Clear Calc 230.5 Estimated GFR > 60 Fasting Glucose 87 Calcium 8.1 L Magnesium 1.7 Total Bilirubin 3.7 H AST 104 H ALT 51 H Alkaline Phosphatase 169 H Total Protein 5.2 L Albumin 2.1 L Discharge Plan Discharge Patient Disposition: Left Against Medical Advice Discharge Diagnosis: Alcohol withdrawal Referrals: Kiesha Strickland MD [Primary Care Provider] - 1 Week Discharge Medications: No Action No Known Home Meds RF: 0 Discharge Orders: Discharge Order (Routine); Ordered 06/29/21 Ordered By: Chauncey Gomez Diet: advance to usual diet Activity on Discharge: As tolerated Care Plan Goals: Stop drugs and alcohol Health Concerns: Ongoing substance abuse Plan of Treatment: [facility] as outpatient Assessment: Left AMA Discharge Date/Time: 06/29/21 10:51
== END 2021-06-29 10:51 | disposition left against medical advice (07) | DRG 280 ==
LOC: HO.ED 20:58 → HO.EDOVER 22:48 → HO.ICU 22:53 → HO.IMC 06-24 18:03
PROVIDERS: Nurse Practitioner Acute Care; Admitting Provider Registered Nurse Community Health; Emergency Provider Internal Medicine; PCP Pediatrics; Visit Provider Hospitalist
DX: K70.10 Alcoholic hepatitis without ascites (principal); K70.30 Alcoholic cirrhosis of liver without ascites; U07.1 COVID-19; J96.01 Acute respiratory failure with hypoxia; E44.0 Moderate protein-calorie malnutrition; D69.6 Thrombocytopenia, unspecified; E87.1 Hypo-osmolality and hyponatremia; E83.42 Hypomagnesemia; E87.2 Acidosis; K76.6 Portal hypertension; K31.89 Other diseases of stomach and duodenum; F17.210 Nicotine dependence, cigarettes, uncomplicated; F10.239 Alcohol dependence with withdrawal, unspecified; Z68.23 Body mass index [BMI] 23.0-23.9, adult; K52.9 Noninfective gastroenteritis and colitis, unspecified; K72.90 Hepatic failure, unspecified without coma; E87.6 Hypokalemia; Z71.6 Tobacco abuse counseling; Z88.5 Allergy status to narcotic agent; Z79.899 Other long term (current) drug therapy
CPT/HCPCS: 36415; 71045; 71250; 74176; 74177; 78580; 80048; 80053; 80076; 81003; 82077; 82140; 82436; 82728; 83605; 83615; 83690; 83735; 83880; 83930; 83935; 84300; 85025; 85027; 85379; 85610; 85730; 86850; 86900; 86901; 87040; 87635; 93005; 93306; 96365; 96366; 96367; 96375; 99285; 99291; A9540; J0692; J1100; J1200; J1650; J2060; J2270; J2405; J2543; J2560; J3475; Q9967

== ENCOUNTER 2021-07-03 10:18 | Emergency (ER) | payer OTHER, SELFPAY ==
[2021-07-03 10:30] VITALS: BP 102/69; PULSE 126; RESP 15; TEMP 37; O2SAT 97
[2021-07-03 10:39] VITALS: BMI 23.6
--- NOTE | 2021-07-03 11:35 | ED_ITS ---
HPI - General Adult General Chief complaint: Abdominal Pain Stated complaint: abd pain Time Seen by Provider: 07/03/21 11:34 Source: patient Limitations: no limitations History of Present Illness HPI narrative: This is a 35-year-old male who had been admitted around June 24 for pancreatitis and jaundice, elevated liver function test. The patient was discharged several days later after improvement. He states his jaundice has gradually improved. He had gone to [facility] yesterday as he had brief abdominal pain which resolved, the patient thinks it was anxiety related. At the [facility] they did do a urine dip which showed bilirubin in his urine and so they referred him to the emergency department, told him not to drink any fluids until he was evaluated. Patient has not had anything to drink since last night, also has not eaten, states he is ?starving?. Patient denies any abdominal pain, nausea vomiting, fever. He states that seen doctors makes him nervous and that is why his heart rate is fast. He states that since he left the hospital he has been feeling better every day, with increased strength, good appetite, and improvement in his jaundice. Related Data Home Medications Medication Instructions Recorded Confirmed No Known Home Meds 05/04/21 05/04/21 Allergies Allergy/AdvReac Type Severity Reaction Status Date / Time codeine [CODEINE] Allergy Mild REDNESS Verified 07/03/21 10:39 tramadol [TRAMADOL] AdvReac Unknown ON EFFEXOR Verified 07/03/21 10:39 From LIBRIUM Allergy Intermediate SWELLING Uncoded 06/06/20 18:01 Review of Systems Constitutional: Constitutional: Reports as per HPI and Denies fever(s) Cardiovascular: Cardiovascular: Reports no additional cardiovascular complaints Respiratory: Respiratory: Reports no additional respiratory complaints Gastrointestinal: Gastrointestinal: Reports no additional gastrointestinal complaints, Denies abdominal pain, Denies nausea and Denies vomiting Integumentary/Breasts: Skin/Breast: Reports other (Resolving jaundice) Neurologic: Denies Sensory deficit (Neuro) [facility] Past Medical History Medical History (Updated 07/03/21 @ 11:38 by Nilson Jeffers MD) Alcohol abuse with withdrawal Alcoholic cirrhosis of liver Pancreatitis Portal hypertension Portal hypertensive gastropathy Social History Social History Household Members: Significant Other Housing: Apartment Do you presently have visiting nurse or other home services: No Alcohol intake: current Alcohol intake frequency: 3 or more drinks per day Alcohol type: beer, wine and hard liquor Patient Tobacco Use Status: Current everyday Tobacco user Cigarettes Per Day: 20 Years Smoked: 29 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 Drugs, Crack/Cocaine, Heroin, Marijuana and Opiates Advance Directives: No service: No Current occupational status: unemployed Physical Exam Vital Signs: Vital Signs: Last Vital Signs Temp 98.6 F 07/03/21 10:30 Pulse 126 H 07/03/21 10:30 Resp 15 07/03/21 10:30 BP 102/69 07/03/21 10:30 Pulse Ox 97 07/03/21 10:30 Body Mass Index 23.6 Const: General: cooperative, no acute distress and alert O rientation/consciousness: patient oriented x3 HENMT: Head: Yes normal to inspection Eyes: General: appearance normal, both eyes and all related structures Eyelids: Yes eyelids normal Conjunctivae: conjunctivae normal Pupils: Equal, round and reactive pupils present Neck: Neck: Yes normal visual inspection and Yes supple Chest: Other: Patient not ill appearing, sclera and skin without obvious jaundice, conjunctivae pink Chest palpation & inspection: normal inspection of the chest Resp: Effort & Inspection: normal respiratory effort Auscultation: clear to auscultation bilaterally Cardio: Rate: tachycardic Rhythm: regular rhythm Heart sounds: S1 normal heart sound present, S2 normal heart sound present, no gallops, no murmurs and no rubs GI: Palpation (GI): Soft to palpation, nontender and Other GI palpation findings present (Non-distended) Auscultation: normal bowel sounds Skin: General skin exam: no rashes or lesions noted Neuro: General: patient oriented x3, no focal motor deficits and CN's II-XI intact bilaterally Cranial nerves: Yes Equal, round and reactive pupils present Cognition (Neuro): normal cognition Motor exam (neuro): 5/5 motor strength present throughout Sensory Exam: No Sensory deficit (Neuro) Extrem: General: Yes normal to inspection and Yes no pedal edema Psych: Appearance: grossly normal Affect: normal affect Medical Decision Making MDM Narrative Medical decision making narrative: Patient sent in for a urine dip that was positive for bilirubin. This finding is not surprising given the patient's recent hospitalization with markedly elevated bilirubin, which trended down over the course since hospital stay and was down to the 3-4 range on the 10th. Patient reports feeling better every day and having resolution of his jaundice. The patient had not drink fluids since last night and has not eaten anything, also stated that he gets nervous around doctors and was nervous about being told to come in, and attributes his heart rate to that. Patient not tremulous, not ill appearing. Given the overall clinical picture, I do not believe additional testing is necessary Discharge Plan Discharge Clinical Impression: Tachycardia, Hyperbilirubinemia Patient Disposition: Home, Self-Care Additional Instructions: Drink plenty of fluids (non alcoholic). Return or see her doctor for any worsened symptoms such as abdominal pain, vomiting, fever, worsening jaundice. Finding of bilirubin in her urine yesterday at [facility] is not unexpected given the recent hospitalization for jaundice associated with alcohol use. Your bilirubin level was gradually coming down during her hospitalization you, and since you are feeling better every day, with no current abdominal pain or nausea, repeat testing is not necessary. Prescriptions: No Action No Known Home Meds RF: 0 Interventions: ED Discharge Assessment Last Done: 07/03/21 12:15 Discharge Date/Time: 07/03/21 12:16
== END 2021-07-03 12:16 | disposition home or self-care (01) ==
PROVIDERS: Emergency Provider Emergency Medicine
DX: R00.0 Tachycardia, unspecified (principal); E80.6 Other disorders of bilirubin metabolism
CPT/HCPCS: 99283

== ENCOUNTER 2021-07-10 19:21 | Emergency (ER) | payer OTHER, SELFPAY ==
[2021-07-10 19:37] VITALS: BP 125/79; PULSE 89; RESP 18; TEMP 37.6; O2SAT 98; BMI 23.6
== END 2021-07-10 21:12 | disposition left against medical advice (07) ==
PROVIDERS: Emergency Provider Emergency Medicine; PCP Internal Medicine
DX: R10.30 Lower abdominal pain, unspecified (principal); M79.605 Pain in left leg; M79.604 Pain in right leg; R60.0 Localized edema
CPT/HCPCS: 99282

== ENCOUNTER 2021-07-11 15:25 | Emergency (ER) | payer OTHER, SELFPAY ==
--- NOTE | ~2021-07-11 | US_ITS ---
EXAMINATION: US ABDOMEN LIMITED CLINICAL INFORMATION: Rule out portal vein thrombosis. COMPARISON: CT abdomen pelvis on 06/25/2021 TECHNIQUE: Real-time imaging of the right upper quadrant abdominal viscera. FINDINGS: PANCREAS: Normal. LIVER: The liver is normal in size. The liver contour is normal. There is diffuse increased liver parenchymal echogenicity, consistent with infiltrative hepatocellular disease. No focal hepatic lesion. There is no intrahepatic biliary duct dilatation seen. Patent portal vein with hepatopedal flow. GALLBLADDER: Normal. The gallbladder is decompressed. Multiple gallstones and biliary sludge. COMMON BILE DUCT: Normal in caliber measuring 0.3 cm in diameter. RIGHT KIDNEY: Normal. No hydronephrosis. No renal calculi or focal parenchymal lesions. The kidney measures 12.6 cm in maximum dimension. FREE FLUID: None. US/US abdomen limited IMPRESSION: 1. Patent portal vein with appropriate directional flow. 2. Decompressed gallbladder with multiple gallstones and biliary sludge. 3. Increased echogenicity of the liver.
--- NOTE | ~2021-07-11 | XR_ITS ---
EXAMINATION: XR CHEST CLINICAL INFORMATION: Lower extremity swelling COMPARISON: June 23, 2021 TECHNIQUE: AP portable view of the chest was obtained. FINDINGS: There is some discoid regions of disease seen at the lung bases consistent with atelectasis. This appears to been present previously. Heart normal size. No evidence of pulmonary edema. No pneumothorax or pleural effusion. XR/XR chest 1V IMPRESSION: No significant change from previous study with regions of basilar atelectasis.
[2021-07-11 15:53] VITALS: BP 142/94; PULSE 124; RESP 18; TEMP 36.8; O2SAT 98; BMI 23.6
--- NOTE | 2021-07-11 16:04 | ECG_ITS ---
Test Reason : LOWER EXTREMITY EDMA Blood Pressure : / mmHG Vent. Rate : 095 BPM Atrial Rate : 095 BPM P-R Int : 124 ms QRS Dur : 084 ms QT Int : 392 ms P-R-T Axes : 065 011 033 degrees QTc Int : 492 ms Normal sinus rhythm Nonspecific T wave abnormality RSR' or QR pattern in V1 suggests right ventricular conduction delay Abnormal ECG T wave amplitude has decreased in Inferior leads Anterior leads Referred By: Maru Teixeira Electronically Signed By:PETRA FALCON MD
--- NOTE | 2021-07-11 16:17 | ED_ITS ---
HPI - General Adult General Chief complaint: Abdominal Pain Stated complaint: feet swelling, stomach pain Time Seen by Provider: 07/11/21 16:09 Source: patient and old records reviewed Mode of arrival: ambulatory Limitations: no limitations History of Present Illness complaint: swollen legs Onset (ago): week(s) (not improving since he left AMA on 06/29 ) Location: abdomen, left, right and lower extremity Severity: mild Quality: aching Pain Consistency: intermittent Relieving factors: none Exacerbating factors: none Associated symptoms: other (notes he doesn't know why his legs are still swollen, his jaundice has improved, at times his abdomen still hurts him. He doesn't have outpatient GI set up yet) Treatments prior to arrival: none Related Data Previous Rx's Medication Instructions Recorded furosemide 20 mg tablet (Lasix) 20 mg PO QAM #30 tab 07/11/21 magnesium oxide 400 mg PO DAILY #30 tab 07/11/21 potassium chloride 10 mEq 10 meq PO DAILY #30 cap 07/11/21 capsule,extended release thiamine HCl (vitamin B1) 100 mg 100 mg PO DAILY #30 tab 07/11/21 tablet Allergies Allergy/AdvReac Type Severity Reaction Status Date / Time codeine [CODEINE] Allergy Mild REDNESS Verified 07/03/21 10:39 tramadol [TRAMADOL] AdvReac Unknown ON EFFEXOR Verified 07/03/21 10:39 From [facility] Allergy Intermediate SWELLING Uncoded 06/06/20 18:01 Review of Systems Review of Systems: Constitutional : No Weight loss, No Fever, No Chills ENT/Mouth : No sore throat, No Rhinorrhea Eyes: No Swelling, No Redness Cardiovascular : No Chest Pain, No SOB, pos Edema Respiratory : No Cough, No Sputum, No Wheezing Gastrointestinal : Positive Nausea, no Vomiting, no Diarrhea, positive abdominal Pain, No Hematochezia, No Melena Genitourinary : No Dysuria, No Urinary Frequency, No Hematuria, No Urgency Musculoskeletal : No joint pain, No Myalgias, No Joint Swelling Skin : No Skin Lesions, No rash Neuro : No Weakness, No Numbness, No Dizziness, No Headache Psych : No Anxiety/Panic, No Depression Heme/Lymph: No Bruising, No Lymphadenopathy Endocrine : No Polyuria, No Polydipsia All other systems reviewed and are negative. [facility] Past Medical History Attestation statement: The following information was validated with the patient. 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 Oriented X3. No acute distress. Anxious Eyes: Pupils equal, round and reactive to light. mild scleral icterus ENT: Pharynx normal. Neck: Normal inspection. Neck supple. CVS: tachycardic heart rate and rhythm. Pulses normal. Respiratory: No respiratory distress. Breath sounds normal. Abdomen: Soft and nontender. Skin: Skin warm and dry. Mild jaundice Extremities: bilateral 2+ pitting edema. No calf ttp Neuro: Oriented X 3. No motor deficit. No sensory deficit. Course Course Course Narrative: lactic acidosis and tachycardia due to liver cirrhosis/anxiety and not infection or severe sepsis labs overall improved from his baseline if US stable - will DC home with lasix, K, magnesium, thiamine VS improved, discussed GB he has a nontender exam today - he states he does not want to undergo any form of surgery at this point Medical Decision Making MDM Narrative Medical decision making narrative: 35 yo male with recent COVID dx, alcoholic cirrhosis - he has abstained left AMA on 06/29 comes in today with c/o his legs still being swollen as well as some residual abdominal pain. He feels his jaundice has improved. He likely needs med regimen at home for fluid overload - is on no medications at this time. Will need labs, CXR, abd US to evaluate for PV thrombus - dispo per results and findings at this time. Lab Data Result diagrams: 07/11/21 16:26 07/11/21 16:26 Labs: Lab Results 07/11/21 07/11/21 07/11/21 Range/Units 16:26 16:26 16:26 WBC 4.8 (4.8-10.8) X10*3/uL RBC 3.22 L D (4.60-5.80) X10*6/uL Hgb 11.5 L D (14.0-18.0) g/dl Hct 34.7 L D (42-52) % MCV 107.8 H (80-98) fL MCH 35.7 H (27.0-33.0) pg MCHC 33.1 (31.0-36.0) g/dl RDW 14.6 (11.0-16.0) % Plt Count 156 L D (160-400) X10*3/uL MPV 11.1 (9.4-12.4) fL Immature Gran % (Auto) 0.0 (0.0-0.4) % Neut % (Auto) 70.8 (45-73) % Lymph % (Auto) 21.3 (20-40) % [place] % (Auto) 6.3 (2-11) % Eos % (Auto) 0.8 (0-4) % Baso % (Auto) 0.8 (0-2) % Lymph # (Auto) 1.0 L (1.2-4.9) X10*3/uL [place] # (Auto) 0.3 (0.1-1.2) X10*3/uL Eos # (Auto) 0.0 (0.0-0.4) X10*3/uL Baso # (Auto) 0.0 (0.0-0.2) X10*3/uL Abs Immat Gran (auto) 0.00 (0.00-0.03) X10*3/uL Absolute Neuts (auto) 3.4 (2.0-8.3) X10*3/uL Absolute Nucleated RBC 0.000 (0.0-0.012) X10*3/uL Nucleated RBC % (auto) 0.0 (0.0-0.2) /100WBC Sodium 136 (135-145) mmol/L Potassium 3.4 (3.3-5.1) mmol/L Chloride 97 (96-108) mmol/L Carbon Dioxide 31 H (22-29) mmol/L Anion Gap 11 L (12-20) BUN 3 L (9-16) mg/dL Creatinine 0.50 (0.5-1.4) mg/dL Estim Creat Clear Calc 239.7 Estimated GFR > 60 Random Glucose 122 H (60-115) mg/dL Lactic Acid (0.5-2.0) mmol/L Calcium 8.1 L (8.4-10.2) mg/dL Magnesium 1.7 (1.6-2.6) mg/dL Total Bilirubin 2.4 H (0.0-1.0) mg/dL Direct Bilirubin 1.9 H (0.0-0.5) mg/dL AST 90 H (5-37) U/L ALT 50 H (0-40) U/L Alkaline Phosphatase 162 H (39-117) U/L Ammonia 27 (13-55) umol/L Lactate Dehydrogenase 159 (118-273) U/L B-Natriuretic Peptide (<100) pg/mL Total Protein 5.9 L (6.5-8.0) g/dL Albumin 2.6 L D (3.5-5.0) g/dL Lipase 8 (8-78) U/L Ethyl Alcohol mg/dL COVID-19 (JEAN) (Negative) COVID-19 Clin Com 07/11/21 07/11/21 07/11/21 Range/Units 16:26 16:26 16:26 WBC (4.8-10.8) X10*3/uL RBC (4.60-5.80) X10*6/uL Hgb (14.0-18.0) g/dl Hct (42-52) % MCV (80-98) fL MCH (27.0-33.0) pg MCHC (31.0-36.0) g/dl RDW (11.0-16.0) % Plt Count (160-400) X10*3/uL MPV (9.4-12.4) fL Immature Gran % (Auto) (0.0-0.4) % Neut % (Auto) (45-73) % Lymph % (Auto) (20-40) % [place] % (Auto) (2-11) % Eos % (Auto) (0-4) % Baso % (Auto) (0-2) % Lymph # (Auto) (1.2-4.9) X10*3/uL [place] # (Auto) (0.1-1.2) X10*3/uL Eos # (Auto) (0.0-0.4) X10*3/uL Baso # (Auto) (0.0-0.2) X10*3/uL Abs Immat Gran (auto) (0.00-0.03) X10*3/uL Absolute Neuts (auto) (2.0-8.3) X10*3/uL Absolute Nucleated RBC (0.0-0.012) X10*3/uL Nucleated RBC % (auto) (0.0-0.2) /100WBC Sodium (135-145) mmol/L Potassium (3.3-5.1) mmol/L Chloride (96-108) mmol/L Carbon Dioxide (22-29) mmol/L Anion Gap (12-20) BUN (9-16) mg/dL Creatinine (0.5-1.4) mg/dL Estim Creat Clear Calc Estimated GFR Random Glucose (60-115) mg/dL Lactic Acid (0.5-2.0) mmol/L Calcium (8.4-10.2) mg/dL Magnesium (1.6-2.6) mg/dL Total Bilirubin (0.0-1.0) mg/dL Direct Bilirubin (0.0-0.5) mg/dL AST (5-37) U/L ALT (0-40) U/L Alkaline Phosphatase (39-117) U/L Ammonia (13-55) umol/L Lactate Dehydrogenase (118-273) U/L B-Natriuretic Peptide 56 (<100) pg/mL Total Protein (6.5-8.0) g/dL Albumin (3.5-5.0) g/dL Lipase (8-78) U/L Ethyl Alcohol < 10 mg/dL COVID-19 (JEAN) Negative (Negative) COVID-19 Clin Com See Note 07/11/21 Range/Units 16:26 WBC (4.8-10.8) X10*3/uL RBC (4.60-5.80) X10*6/uL Hgb (14.0-18.0) g/dl Hct (42-52) % MCV (80-98) fL MCH (27.0-33.0) pg MCHC (31.0-36.0) g/dl RDW (11.0-16.0) % Plt Count (160-400) X10*3/uL MPV (9.4-12.4) fL Immature Gran % (Auto) (0.0-0.4) % Neut % (Auto) (45-73) % Lymph % (Auto) (20-40) % [place] % (Auto) (2-11) % Eos % (Auto) (0-4) % Baso % (Auto) (0-2) % Lymph # (Auto) (1.2-4.9) X10*3/uL [place] # (Auto) (0.1-1.2) X10*3/uL Eos # (Auto) (0.0-0.4) X10*3/uL Baso # (Auto) (0.0-0.2) X10*3/uL Abs Immat Gran (auto) (0.00-0.03) X10*3/uL Absolute Neuts (auto) (2.0-8.3) X10*3/uL Absolute Nucleated RBC (0.0-0.012) X10*3/uL Nucleated RBC % (auto) (0.0-0.2) /100WBC Sodium (135-145) mmol/L Potassium (3.3-5.1) mmol/L Chloride (96-108) mmol/L Carbon Dioxide (22-29) mmol/L Anion Gap (12-20) BUN (9-16) mg/dL Creatinine (0.5-1.4) mg/dL Estim Creat Clear Calc Estimated GFR Random Glucose (60-115) mg/dL Lactic Acid 2.9 H* (0.5-2.0) mmol/L Calcium (8.4-10.2) mg/dL Magnesium (1.6-2.6) mg/dL Total Bilirubin (0.0-1.0) mg/dL Direct Bilirubin (0.0-0.5) mg/dL AST (5-37) U/L ALT (0-40) U/L Alkaline Phosphatase (39-117) U/L Ammonia (13-55) umol/L Lactate Dehydrogenase (118-273) U/L B-Natriuretic Peptide (<100) pg/mL Total Protein (6.5-8.0) g/dL Albumin (3.5-5.0) g/dL Lipase (8-78) U/L Ethyl Alcohol mg/dL COVID-19 (JEAN) (Negative) COVID-19 Clin Com ECG Data Attestation: I personally reviewed and interpreted this ECG as follows: Interpretation: Rate: 95 Rhythm: NSR [place]: normal Normal P waves. Normal [place]KE[place]. Normal QRS complex. ST T wave : normal no WADE qTC: prolonged prior studies: no acute ischemia, artifact is noted The study has been interpreted contemporaneously by me. . Discharge Plan Discharge Clinical Impression: Gallstones, Cirrhosis, Bilateral edema of lower extremity Patient Disposition: Home, Self-Care Instructions: Cirrhosis (ED), Gallstones (ED), Low Fat Diet (ED), Edema (ED) Additional Instructions: return to ED for any worsening symptoms or concerns please see a GI doctor as soon as possible Prescriptions: New furosemide [Lasix] 20 mg tablet 20 mg PO QAM Qty: 30 RF: 0 potassium chloride 10 mEq capsule, extended release 10 meq PO DAILY Qty: 30 RF: 0 magnesium oxide 400 mg magnesium tablet 400 mg PO DAILY Qty: 30 RF: 0 thiamine HCl (vitamin B1) 100 mg tablet 100 mg PO DAILY Qty: 30 RF: 0 Referrals: Gene Miles MD [Physician] - 1 week (surgery for gallstones)
[2021-07-11 16:38] LABS: MANUAL DIFF FLAG NO
[2021-07-11 16:42] LABS: Basophils Percent Auto 0.8 % (0-2); Eosinophils Percent Auto 0.8 % (0-4); Hematocrit 34.7 % (42-52); Hemoglobin 11.5 g/dl (14.0-18.0); Lymphocytes Percent Auto 21.3 % (20-40); Mean Corpuscular HGB Conc 33.1 g/dl (31.0-36.0); Mean Corpuscular Hemoglobin 35.7 pg (27.0-33.0); Mean Corpuscular Volume 107.8 fL (80-98); Mean Platelet Volume 11.1 fL (9.4-12.4); Monocytes Absolute Auto 0.3 X10*3/uL (0.1-1.2); Monocytes Percent Auto 6.3 % (2-11); Neutrophils Absolute Auto 3.4 X10*3/uL (2.0-8.3); Neutrophils Percent Auto 70.8 % (45-73); Platelet Count 156 X10*3/uL (160-400); Red Blood Count 3.22 X10*6/uL (4.60-5.80); Red Cell Distribution Width 14.6 % (11.0-16.0); White Blood Count 4.8 X10*3/uL (4.8-10.8)
[2021-07-11 16:49] LABS: Ammonia 27 umol/L (13-55)
[2021-07-11 16:53] VITALS: BP 131/84; PULSE 97; RESP 16; O2SAT 97
[2021-07-11 16:56] LABS: COVID-19 Test Negative (Negative); Lactic Acid 2.9 mmol/L (0.5-2.0)
[2021-07-11 16:57] LABS: Ethanol < 10 mg/dL
[2021-07-11 17:00] LABS: Alanine Aminotransferase 50 U/L (0-40); Albumin Level 2.6 g/dL (3.5-5.0); Alkaline Phosphatase 162 U/L (39-117); Anion Gap 11 (12-20); Aspartate Amino Transferase 90 U/L (5-37); B Type Natriuretic Peptide 56 pg/mL (<100); Bilirubin Direct 1.9 mg/dL (0.0-0.5); Bilirubin Total 2.4 mg/dL (0.0-1.0); Blood Urea Nitrogen 3 mg/dL (9-16); Calcium 8.1 mg/dL (8.4-10.2); Carbon Dioxide 31 mmol/L (22-29); Chloride 97 mmol/L (96-108); Creatinine Clr Calc Pharmacy 239.7; Estimated Glomerular Filt Rate > 60; Glucose Random 122 mg/dL (60-115); Lactate Dehydrogenase 159 U/L (118-273); Lipase 8 U/L (8-78); Magnesium 1.7 mg/dL (1.6-2.6); Potassium 3.4 mmol/L (3.3-5.1); Sodium 136 mmol/L (135-145); Total Protein 5.9 g/dL (6.5-8.0)
--- NOTE | 2021-07-11 17:42 | PC.NURSE ---
this rn failed iv x 3, 22ga iv in lac,lla and rla. pt has + 2 pitting edema to bilat lower legs wth strong regular pedal pulses, resps are = andnonlabored. awaiting us report and iv therapy.
[2021-07-11] MEDS: Thiamine HCL 100 MG TABLET PO (18:07)
[2021-07-11] MEDS: Folic Acid 1 MG TABLET PO (18:07)
[2021-07-11] MEDS: Magnesium Oxide 400 MG TABLET PO (18:08)
--- NOTE | 2021-07-11 18:33 | PC.NURSE ---
2nd nurse unable to est iv, md artis made aware and meds were changed to po. pt continues resting comfortably, no sign distress.
[2021-07-11 18:35] LABS: Reflex Lactate? Lactic Acid Added
== END 2021-07-11 18:58 | disposition home or self-care (01) ==
PROVIDERS: Emergency Provider Emergency Medicine; PCP Internal Medicine
DX: K74.60 Unspecified cirrhosis of liver (principal); K80.80 Other cholelithiasis without obstruction; R60.0 Localized edema; Z20.822 Contact with and (suspected) exposure to COVID-19; Z79.899 Other long term (current) drug therapy
CPT/HCPCS: 36415; 71045; 76705; 80048; 80076; 82077; 82140; 83605; 83615; 83690; 83735; 83880; 85025; 87635; 93005; 99283; 99284

== ENCOUNTER → 2021-09-10 10:50 | Outpatient (BNVA) | payer OTHER, SELFPAY | PROVIDERS: PCP Internal Medicine; Referring Provider Internal Medicine; Visit Provider Surgery | DX: K80.20 Calculus of gallbladder without cholecystitis without obstruction (principal); K76.6 Portal hypertension; K70.30 Alcoholic cirrhosis of liver without ascites | CPT/HCPCS: 99202 ==

== ENCOUNTER → 2021-10-31 09:25 | Outpatient (BNVA) | payer OTHER, SELFPAY | PROVIDERS: PCP Internal Medicine; Referring Provider Surgery; Visit Provider Internal Medicine Gastroenterology | DX: K80.20 Calculus of gallbladder without cholecystitis without obstruction (principal); K70.30 Alcoholic cirrhosis of liver without ascites | CPT/HCPCS: 99212 ==